=== PATIENT | female | born 1965 | race Caucasian/White ===

== ENCOUNTER → 2017-07-13 | Outpatient (CLI) | payer MEDICARE, OTHER ==
[~2017-07-13] MED LIST: ACEASPCAF PO; ALBU3IS INH; ALBU90OI6 INH; ALBU90OI61 INH; AMOX875 PO; ASCO1ER PO; ASCO500 PO; AZIT250 PO; Albuterol2.5 MG/0.5 INH; Amoxicillin500 MG PO; BACL10 PO; BACL20 PO; CALCA500CH PO; CALCAVITDA PO; CALCIT950 PO; CEFD300 PO; CEPH500 PO; CYAN1000 PO; Cipro250 MG PO; DIAZ2 PO; DIAZ5 PO; ESCI20 PO; ESOM20 PO; FENT100TP TOP; FLUO10 PO; FLUSAL2505 IH; HYDMOR8 PO; IBUP600 PO; LAVAP17G PO; LEVFLO500 PO; LEVO750 PO; LIDO2L TOP; LIDO5TP TOP; LIDO700A20 TOP; LITH300C PT; LITH300ER PO; METH1TAB8 PO; MILLIPRED DP5 M1 PO; MINO100 PO; MULVITB&C PO; MULVITMINE PO; NICO21TP TOP; NITR100CA PO; NORT10 PO; OFLO.3OTSO BOTHEARS; OXYC20L PO; OXYC30ER PO; OXYC40ER PO; OXYC5 PO; OXYC80ER PO; POLY17UD PO; PRED10 PO; PRED20 PO; PREG100 PO; PREG150 PO; PREG75 PO; Pyridium200 MG PO; Roxicodone15 MG PO; Seroquel50 MG; TETR250 PO; TIOT18 IH; TIOT18 INH; TRAZ50 PO; Verotin-Gr Cap1 EACH PO; Vistaril50 MG PO; Vitamin B Comple1 EA PO; ZOLP5 PO; Zithromax250 MG PO
[2017-07-13 16:10] LABS: Appearance, Urine Hazy (Clear); Blood, Urine 2+ (Neg); Color, Urine Yellow (P-Yellow); Glucose Qualitative, Urine Neg (Neg); Ketones, Urine Neg (Neg); Leukocyte Esterase, Urine 3+ (Neg); Nitrite, Urine Pos (Neg); Protein, Urine 1+ (Neg); Urobilinogen, Urine 2+ (Normal); pH, Urine 6.5 (5.0-8.0)
[2017-07-13 16:17] LABS: Bilirubin, Urine 1+ (Neg)
[2017-07-13 16:18] LABS: Bacteria Many /hpf; Red Blood Cells, Urine 0-2 /hpf (0-2); Squamous Epithelial Cells Few /hpf (Few)
== END ==
LOC: LAB 15:30 → LAB SHORT 15:30 → LAB FUT 07-13 15:15
PROVIDERS: Family Medicine
DX: N39.0 Urinary tract infection, site not specified (principal)
CPT/HCPCS: 81001; 87077; 87086; 87186

== ENCOUNTER 2018-05-10 01:09 | Day surgery (SDC) | payer MEDICARE, OTHER ==
[~2018-05-10 01:09] MED LIST changes: -CEPH500 PO; -Vistaril50 MG PO
== END 2018-05-10 14:21 | disposition home or self-care (01) ==
LOC: ATC 01:09
DX: C32.1 Malignant neoplasm of supraglottis (principal)
CPT/HCPCS: 99211

== ENCOUNTER 2018-06-25 00:04 | Day surgery (SDC) | payer MEDICARE, OTHER ==
[~2018-06-25 00:04] MED LIST changes: +CEPH500 PO; +Vistaril50 MG PO
== END 2018-06-25 15:40 | disposition home or self-care (01) ==
LOC: ATC 00:04
DX: C32.1 Malignant neoplasm of supraglottis (principal); Q05.7 Lumbar spina bifida without hydrocephalus; Z88.8 Allergy status to other drugs, medicaments and biological substances; R13.10 Dysphagia, unspecified; F17.200 Nicotine dependence, unspecified, uncomplicated; F41.8 Other specified anxiety disorders; M79.7 Fibromyalgia; K21.9 Gastro-esophageal reflux disease without esophagitis
CPT/HCPCS: 99211

== ENCOUNTER 2018-07-05 15:48 | Day surgery (SDC) | payer MEDICARE, OTHER | END 2018-07-05 23:10 | disposition home or self-care (01) | LOC: ATC 15:48 | DX: Z45.1 Encounter for adjustment and management of infusion pump (principal) | CPT/HCPCS: 99211 ==

== ENCOUNTER 2019-05-20 17:36 | Emergency (ER) | payer MEDICARE, OTHER ==
[~2019-05-20] VITALS: Ht 152.4 cm; Wt 45.4 kg
[2019-05-20 19:14] LABS: BASOPHILS ABSOLUTE AUTO 0.03 K/mm3 (0.00-0.23); BASOPHILS PERCENT AUTO 0 % (0-2); EOSINOPHILS PERCENT AUTO 1 % (0-6); Hematocrit 40.3 % (33.0-51.0); IMMATURE GRAN ABSOLUTE AUTO 0.03 K/mm3 (0.00-0.10); IMMATURE GRAN PERCENT AUTO 0 % (0-1); LYMPHOCYTES ABSOLUTE AUTO 1.08 K/mm3 (0.84-5.20); LYMPHOCYTES PERCENT AUTO 12 % (21-46); MONOCYTES ABSOLUTE AUTO 0.25 K/mm3 (0.16-1.47); MONOCYTES PERCENT AUTO 3 % (4-13); Mean Corpuscular HGB 28.8 pg (26.0-34.0); Mean Corpuscular HGB Conc 32.3 g/dL (31.5-36.5); Mean Corpuscular Volume 89 fL (80-100); Mean Platelet Volume 10.7 fL (9.1-12.4); NEUTROPHILS ABSOLUTE AUTO 7.74 K/mm3 (1.96-9.15); NEUTROPHILS PERCENT AUTO 84 % (41-73); Platelet Count 222 K/mm3 (150-400); RDW Coefficient Variation 14.6 % (11.7-14.2); RDW Standard Deviation 47.9 fL (35.1-46.3); Red Blood Cell Count 4.52 M/mm3 (3.80-5.20); White Blood Cell Count 9.23 K/mm3 (4.00-11.30)
[2019-05-20 19:31] LABS: Alanine Aminotransfer (ALT/SGP 23 U/L (12-78); Albumin, Blood 2.9 g/dL (3.4-5.0); Albumin/Globulin Ratio 0.8 (0.8-1.8); Alk Phos 101 U/L (50-136); Anion Gap 3 mmol/L (6-16); Aspartate Aminotrans (AST/SGOT 15 U/L (12-37); Bilirubin, Total 0.3 mg/dL (0.1-1.0); Blood Urea Nitrogen 14 mg/dL (8-24); Bun/Creatinine Ratio 29.4 (12.0-20.0); CO2, Blood 30 mmol/L (21-32); Calcium, Blood 8.2 mg/dL (8.5-10.1); Chloride, Blood 104 mmol/L (98-108); Creatinine, Blood 0.48 mg/dL (0.40-1.00); Globulin, Blood 3.6 g/dL (2.2-4.0); Glomerular Filtration Rate >60 (60-); Glucose, Blood 160 mg/dL (70-99); Potassium, Blood 3.3 mmol/L (3.5-5.5); Sodium, Blood 137 mmol/L (136-145); Total Protein, Blood 6.5 g/dL (6.4-8.2)
[2019-05-20] MEDS ORDERED: Prednisone10 MG PO (19:35)
[2019-05-20] MEDS ORDERED: DOXY100 (19:36)
[2019-05-20] MEDS ORDERED: PRED10 PO (19:40)
[2019-05-20] MEDS ORDERED: AZIT250 PO (19:40)
== END 2019-05-20 19:51 | disposition home or self-care (01) ==
LOC: ER 17:36
PROVIDERS: Emergency Medicine
DX: J44.1 Chronic obstructive pulmonary disease with (acute) exacerbation (principal); F17.210 Nicotine dependence, cigarettes, uncomplicated; Z87.440 Personal history of urinary (tract) infections; Z88.2 Allergy status to sulfonamides; Z88.8 Allergy status to other drugs, medicaments and biological substances; Z88.1 Allergy status to other antibiotic agents; Z88.5 Allergy status to narcotic agent; Z79.899 Other long term (current) drug therapy; Z79.891 Long term (current) use of opiate analgesic; Z79.52 Long term (current) use of systemic steroids
CPT/HCPCS: 71045; 80053; 85025; 94644; 99284-25

== ENCOUNTER 2019-06-28 01:14 | Inpatient (IN) | payer MEDICARE, OTHER ==
[~2019-06-28] VITALS: Ht 152.4 cm; Wt 40.6 kg
[~2019-06-28 01:14] MED LIST changes: +DOXY100; +Prednisone10 MG PO; +Seroquel Xr50 MG PO; -Seroquel50 MG
[2019-06-28 01:25] LABS: PCO2 Arterial 58.6 mmHg (35-45); PO2 Arterial 62.2 mmHg (80-100)
[2019-06-28 01:38] LABS: BASOPHILS ABSOLUTE AUTO 0.04 K/mm3 (0.00-0.23); BASOPHILS PERCENT AUTO 0 % (0-2); EOSINOPHILS PERCENT AUTO 1 % (0-6); Hemoglobin 12.1 g/dL (11.5-16.0); IMMATURE GRAN ABSOLUTE AUTO 0.07 K/mm3 (0.00-0.10); IMMATURE GRAN PERCENT AUTO 1 % (0-1); LYMPHOCYTES ABSOLUTE AUTO 1.77 K/mm3 (0.84-5.20); LYMPHOCYTES PERCENT AUTO 12 % (21-46); MONOCYTES ABSOLUTE AUTO 0.82 K/mm3 (0.16-1.47); MONOCYTES PERCENT AUTO 5 % (4-13); Mean Corpuscular HGB 28.5 pg (26.0-34.0); Mean Corpuscular HGB Conc 31.8 g/dL (31.5-36.5); Mean Corpuscular Volume 90 fL (80-100); Mean Platelet Volume 10.8 fL (9.1-12.4); NEUTROPHILS ABSOLUTE AUTO 12.35 K/mm3 (1.96-9.15); NEUTROPHILS PERCENT AUTO 81 % (41-73); Platelet Count 209 K/mm3 (150-400); RDW Coefficient Variation 14.4 % (11.7-14.2); RDW Standard Deviation 47.4 fL (35.1-46.3); Red Blood Cell Count 4.24 M/mm3 (3.80-5.20); White Blood Cell Count 15.25 K/mm3 (4.00-11.30)
[2019-06-28 01:52] LABS: Influenza A Negative (NEGATIVE); Influenza B Negative (NEGATIVE)
[2019-06-28 01:56] LABS: Alanine Aminotransfer (ALT/SGP 20 U/L (12-78); Albumin/Globulin Ratio 0.8 (0.8-1.8); Alk Phos 92 U/L (50-136); Anion Gap 5 mmol/L (6-16); Aspartate Aminotrans (AST/SGOT 25 U/L (12-37); Bilirubin, Total 0.4 mg/dL (0.1-1.0); Blood Urea Nitrogen 17 mg/dL (8-24); Bun/Creatinine Ratio 19.3 (12.0-20.0); CO2, Blood 28 mmol/L (21-32); Calcium, Blood 8.2 mg/dL (8.5-10.1); Chloride, Blood 102 mmol/L (98-108); Creatinine, Blood 0.88 mg/dL (0.40-1.00); Globulin, Blood 3.8 g/dL (2.2-4.0); Glomerular Filtration Rate >60 (60-); Glucose, Blood 121 mg/dL (70-99); Potassium, Blood 3.5 mmol/L (3.5-5.5); Sodium, Blood 135 mmol/L (136-145); Total Protein, Blood 6.8 g/dL (6.4-8.2); Troponin I <0.015 ng/mL (0.000-0.040)
[2019-06-28 04:59] LABS: PCO2 Arterial 70.8 mmHg (35-45); PO2 Arterial 73.7 mmHg (80-100); pH Blood Arterial 7.15 (7.35-7.45)
[2019-06-28 05:24] LABS: Source, Urine Clean Catch
[2019-06-28 05:29] LABS: Appearance, Urine Cloudy (Clear); Blood, Urine 1+ (Neg); Color, Urine Yellow (P-Yellow); Glucose Qualitative, Urine 2+ (Neg); Ketones, Urine 1+ (Neg); Leukocyte Esterase, Urine 2+ (Neg); Nitrite, Urine Pos (Neg); Protein, Urine 3+ (Neg); Specific Gravity, Urine 1.025 (1.003-1.022); Urobilinogen, Urine 1+ (Normal)
[2019-06-28 05:41] LABS: Bilirubin, Urine 1+ (Neg)
[2019-06-28 05:42] LABS: White Blood Cells, Urine 25-50 /hpf (0-5)
[2019-06-28 05:43] LABS: Bacteria Many /hpf; Granular Casts 25-50 /lpf (0); Red Blood Cells, Urine 0-2 /hpf (0-2); Squamous Epithelial Cells Mod /hpf (Few)
--- NOTE | 2019-06-28 06:28 | NUR ---
SHIFT SUMMARY: PT TO UNIT FROM ED. INTUBATED AND SEDATED. PT CHIEF COMPLAINT IS SOB X 1 WK. PT WAS UNRESPONSIVENESS WHEN EMS ARRIVED. PT REPORTEDLY DID NOT TOLERATE BIPAP SO PT WAS INTUBATED. ETT 7.0, 22 AT TEETH. CURRENTLY ON PRESSURE SUPPORT 350/PEEP 5/ FIO2 50%. PT TOLERATING WELL. ST, MAP IN THE 60S. LUNG SOUNDS COARSE AND WHEEZY THROUGHOUT. OG IN PLACE TO LIS. TERESA IN PLACE DRAINING CLEAR YELLOW URINE. 18G IV TO R/L AC, PROPOFOL AT 50, NS AT 100ML/HR. DEBBIE MOARLES PLACED CALL TO PTS SO. NO VM SET UP
--- NOTE | 2019-06-28 06:33 | NUR ---
CALL TO FAMILY PER WOODYARD OPERATOR, S.O. IS NOT AWARE OF PT BEING INTUBATED. ATTEMPTED CALL TO S.O.- NO ANSWER AT THIS TIME. NO VOICE MAIL AVAILABLE.
[2019-06-28 06:38] LABS: Adenovirus Not Detected (NOT DETECT); Bordetella pertussis Not Detected (NOT DETECT); Chlamydophila pneumoniae Not Detected (NOT DETECT); Coronavirus 229E Not Detected (NOT DETECT); Coronavirus HKU1 Not Detected (NOT DETECT); Coronavirus NL63 Not Detected (NOT DETECT); Coronavirus OC43 Not Detected (NOT DETECT); Human Metapneumovirus Not Detected (NOT DETECT); Human Rhinovirus/Enterovirus Not Detected (NOT DETECT); Influenza A Not Detected (NOT DETECT); Influenza A/2009-H1 Not Detected (NOT DETECT); Influenza A/H1 Not Detected (NOT DETECT); Influenza A/H3 Not Detected (NOT DETECT); Influenza B Not Detected (NOT DETECT); Mycoplasma pneumoniae Not Detected (NOT DETECT); Parainfluenza Virus 1 Not Detected (NOT DETECT); Parainfluenza Virus 2 Not Detected (NOT DETECT); Parainfluenza Virus 3 Not Detected (NOT DETECT); Parainfluenza Virus 4 Not Detected (NOT DETECT); Respiratory Syncytial Virus Not Detected (NOT DETECT)
[2019-06-28 07:31] LABS: PCO2 Arterial 50.4 mmHg (35-45); PO2 Arterial 83.2 mmHg (80-100)
--- NOTE | 2019-06-28 07:39 | NUR ---
RT CHANGED VENT SETTINGS TO A/C AND 40% FIO2.
[2019-06-28 08:44] LABS: Hematocrit 35.1 % (33.0-51.0); Hemoglobin 11.1 g/dL (11.5-16.0); Mean Corpuscular HGB 28.5 pg (26.0-34.0); Mean Corpuscular HGB Conc 31.6 g/dL (31.5-36.5); Mean Corpuscular Volume 90 fL (80-100); Mean Platelet Volume 10.8 fL (9.1-12.4); Platelet Count 170 K/mm3 (150-400); RDW Coefficient Variation 14.5 % (11.7-14.2); RDW Standard Deviation 47.7 fL (35.1-46.3); White Blood Cell Count 17.39 K/mm3 (4.00-11.30)
[2019-06-28 09:11] LABS: Alanine Aminotransfer (ALT/SGP 30 U/L (12-78); Albumin, Blood 2.5 g/dL (3.4-5.0); Albumin/Globulin Ratio 0.7 (0.8-1.8); Alk Phos 91 U/L (50-136); Anion Gap 7 mmol/L (6-16); Aspartate Aminotrans (AST/SGOT 42 U/L (12-37); Bilirubin, Total 0.3 mg/dL (0.1-1.0); Blood Urea Nitrogen 18 mg/dL (8-24); Bun/Creatinine Ratio 27.1 (12.0-20.0); CO2, Blood 24 mmol/L (21-32); Calcium, Blood 7.3 mg/dL (8.5-10.1); Chloride, Blood 106 mmol/L (98-108); Creatinine, Blood 0.67 mg/dL (0.40-1.00); Globulin, Blood 3.5 g/dL (2.2-4.0); Glomerular Filtration Rate >60 (60-); Glucose, Blood 273 mg/dL (70-99); Sodium, Blood 137 mmol/L (136-145)
--- NOTE | 2019-06-28 09:29 | NUR ---
RT DECREASED FIO2 TO 35% BY RT.
[2019-06-28] MEDS ORDERED: OXYC30ER PO (09:47)
--- NOTE | 2019-06-28 10:00 | NUR ---
PT SAT UPRIGHT IN BED, GAGGING AND FIGHTING ETT. SUCTIONED ETT WITH SMALL AMT THICK MEZA SECRETIONS, TOLERATED WELL. PROPOFOL GTT INCREASED TO 50 MCG/KG/MIN.
--- NOTE | 2019-06-28 11:00 | NUR ---
DR. SPENCER AT BEDSIDE FOR ASSESSMENT. CHANGED VENT SETTINGS TO SPONT WITH PS 8 AND 35% FIO2, TV 350.
--- NOTE | 2019-06-28 14:56 | NUR ---
DR JIANG AT BEDSIDE TO SPEAK WITH FAMILY AND PT. PT LISTENING W EYES CLOSED, CONT TO NOD HEAD APPROPRIATELY TO QUESTIONS. DENIES PAIN. BP VERY LABILE. EPI TURNED OFF AT 1450. PICTURES OF RIGHT HAND EMBOLI TAKEN. LEFT AND AND OTHER EXTREMITIES REMAIN CLEAR. POSSIBLE VICTORINO TODAY. REPEAT EKG ORDERED.
--- NOTE | 2019-06-28 20:18 | NUR ---
CARE OF PT ASSUMED AT 1120. AT BEDSIDE; LEFT SHORTLY AFTER FOR HOME. PT SEDATED ON PROPOFOL AT 50MCG. PRECEDEX GTT STARTED AT 1242 AND SLOWLY TITATRED TO 0.7MCG OVER THE SHIFT. PT ABRUPTLY WOULD AWAKEN FROM SEDATION AND SIT IN TRIPOD STANCE WHILE GAGGING ON ETT. FENT IV Q2 FOR PAIN ORDERED BY DR SPENCER. FENT GIVEN TWICE FOR PAIN ON MY SHIFT. PT C/O PAIN EVERYWHERE; AWAKE AND NODDING APPROPRIATE TO QUESTIONS. PT RESPONDED BETTER TO 100MCG RATHER THAN THE 50MCG. PT ABLE TO ASSIST WITH TURNS. IV AND PT K+ REPLACEMENT GIVEN; DOSE VARIFIED WITH DR SPENCER PRIOR TO ADMINISTRATION. REPORT GIVEN TO ONCOMING RN.
--- NOTE | 2019-06-28 21:22 | NUR ---
SPOKE TO DR. SPENCER RE ADDING ATIVAN FOR ANXIETY. NO ORDERS FOR ATIVAN GIVEN HOWEVER CAN GO UP TO 1.4 ON PRECEDEX.
[2019-06-29 04:27] LABS: Bicarbonate Venous 22.8 mmol/L (24.0-30.0); PCO2 Venous 40.4 mmHg (38-42); PO2 Venous 88.8 mmHg (38-42); pH Blood Venous 7.37 (7.34-7.37)
[2019-06-29 04:31] LABS: BASOPHILS ABSOLUTE AUTO 0.01 K/mm3 (0.00-0.23); BASOPHILS PERCENT AUTO 0 % (0-2); EOSINOPHILS PERCENT AUTO 0 % (0-6); Hematocrit 35.8 % (33.0-51.0); Hemoglobin 11.5 g/dL (11.5-16.0); IMMATURE GRAN ABSOLUTE AUTO 0.02 K/mm3 (0.00-0.10); IMMATURE GRAN PERCENT AUTO 0 % (0-1); LYMPHOCYTES ABSOLUTE AUTO 0.31 K/mm3 (0.84-5.20); LYMPHOCYTES PERCENT AUTO 4 % (21-46); MONOCYTES ABSOLUTE AUTO 0.32 K/mm3 (0.16-1.47); MONOCYTES PERCENT AUTO 4 % (4-13); Mean Corpuscular HGB 28.4 pg (26.0-34.0); Mean Corpuscular HGB Conc 32.1 g/dL (31.5-36.5); Mean Corpuscular Volume 88 fL (80-100); Mean Platelet Volume 10.7 fL (9.1-12.4); NEUTROPHILS ABSOLUTE AUTO 7.56 K/mm3 (1.96-9.15); NEUTROPHILS PERCENT AUTO 92 % (41-73); Platelet Count 145 K/mm3 (150-400); RDW Coefficient Variation 14.4 % (11.7-14.2); Red Blood Cell Count 4.05 M/mm3 (3.80-5.20); White Blood Cell Count 8.22 K/mm3 (4.00-11.30)
[2019-06-29 04:49] LABS: Anion Gap 6 mmol/L (6-16); Blood Urea Nitrogen 22 mg/dL (8-24); Bun/Creatinine Ratio 47.2 (12.0-20.0); CO2, Blood 24 mmol/L (21-32); Calcium, Blood 8.4 mg/dL (8.5-10.1); Chloride, Blood 111 mmol/L (98-108); Creatinine, Blood 0.47 mg/dL (0.40-1.00); Glomerular Filtration Rate >60 (60-); Glucose, Blood 131 mg/dL (70-99); Phosphorus, Blood 3.5 mg/dL (2.5-4.9); Potassium, Blood 4.8 mmol/L (3.5-5.5); Sodium, Blood 141 mmol/L (136-145)
--- NOTE | 2019-06-29 05:51 | NUR ---
NO ACUTE CHANGES THIS SHIFT. PT ALERT AND ORIENTED AND IS ABL ETO COMMUNICATE NEEDS VIA PEN AND PAPER. PT IN NSR, STABLE BP, HR IN THE 80S. PT ON PRESSURE SUPPORT 350/[EE[ 5/ FI02 30%. SPO2 >90%. PT HAS 20G RAC INFUSING WITH NS TKO AND 18G LAC INF WITH PRECEDEX AT 1 AND PROPOFOL AT 50. CXRAY DONE THIS AM. POSSIBLE EXTUBATION TODAY
--- NOTE | 2019-06-29 09:23 | NUR ---
DR SPENCER ROUNDS DR SPENCER ROUNDED, UPDATED ON PT STATUS. PLAN TO EXTUBATE PT THIS MORNING. PROPOFOL GTT STOPPED AT THIS TIME. CHILO RT NOTIFIED. PER DR SPENCER, PRECEDEX GTT TO CONTINUE POST EXTUBATION D/T PT'S HX ANXIETY, OKAY FOR PT TO EAT IF APPROPRIATE AFTER A COUPLE HOURS. NO FURTHER CHANGES TO PLAN OF CARE AT THIS TIME. WILL CONT TO MONITOR PT.
--- NOTE | 2019-06-29 10:34 | NUR ---
EXTUBATION PT SITTING UP IN BED AND PULLING ON RESTRAINTS, VERY AWAKE AND READY TO HAVE ETT OUT. CHILO RT NOTIFIED THAT PT IS READY TO BE EXTUBATED. RT CHILO AND THIS RN AT BEDSIDE. PT INFORMED OF PLAN AND SET UP FOR EXTUBATION. ORAL AND ETT SUCTIONING DONE. PT SAFELY EXTUBATED AT 1008, O2 AT 3LPM VIA NC IN PLACE WITH PT SPO2 97%. PT EDUCATED THAT IT IS NORMAL TO FEEL DISCOMFORT AND SORENESS IN THROAT POST EXTUBATION AND TO MINIMIZE TALKING IN ORDER TO HEAL, PT NODDED UNDERSTANDING. SBW RESTRAINTS D/C. DR SPENCER UPDATED. WILL CONT TO MONITOR PT. CALL LIGHT IN REACH.
--- NOTE | 2019-06-29 10:54 | NUR ---
DR SPENCER UPDATE PER DR SPENCER, ANTICIPATED THAT PT WILL REQUEST HOME DOES OF OXYCODONE - DR HEREDIA TO MANAGE THIS.
--- NOTE | 2019-06-29 11:20 | NUR ---
PT EXTUBATED AT 1008 WITHOUT ISSUE, PLACED ON 2L POST EXTUBATION. PT ETT AND ORAL SX PRIOR TO EXTUBATION.
--- NOTE | 2019-06-29 11:31 | NUR ---
NICOTINE PATCH REQUEST PT REQUESTING NICOTINE PATCH. PER PT SHE SMOKES 6 CIGS/DAY. ORDER RECEIVED FROM DR SPENCER FOR 7MG NICOTINE PATCH. PER DR JOHANNA GAFFNEY TO ORDER OXYCODONE 5MG Q6H PRN FOR MODERATE PAIN. NO FURTHER CHANGES TO PLAN OF CARE AT THIS TIME. WILL CONT TO MONITOR PT.
--- NOTE | 2019-06-29 13:00 | NUR ---
PAIN PT AT BEDSIDE, UPDATED ON PT STATUS. PT ASKED WHEN SHE CAN RECEIVE PAIN MEDICINE AND WHAT WE ARE DOING TO MANAGE HER PAIN. I EXPLAINED THAT SHE HAS NOT C/O PAIN FOR ME THIS SHIFT BUT I ACKNOWLEDGE HER CHRONIC PAIN AND PLAN IS TO DISCUSS RESUMING HOME DOSE OF OXYCODONE WITH DR HEREDIA DURING ROUNDS, THAT UNTIL THEN WE DO HAVE FENTANYL IF SHE SHOULD NEED IT. PT IMMEDIATELY COMMENTS THAT SHE IS IN PAIN AND HAS BEEN BUT WAS TOLD BY "THE NURSE IN THE RED TOP" THAT SHE "CAN'T USE HER CALL LIGHT". EXPLAINED TO PT THAT THIS WAS NOT WHAT WAS SAID, WHAT WAS ENCOURAGED IS APPROPRIATE USE OF CALL LIGHT SHE HAD BEEN CALLING EVERY 15 MIN FOR SMALL ITEMS SUCH MOUTH SWABS, WARM BLANKETS, ETC. PT STATED "NO, I HAVE SAID I'M HAVING PAIN". REITERATED TO PT THAT AT NO TIME DID SHE VERBALIZE PAIN TO THIS RN OR OTHERS. PLAN TO MEDICATE WITH FENTANYL FOR PAIN PER ORDERS. SEE EMAR. WILL CONT TO MONITOR PT.
--- NOTE | 2019-06-29 14:18 | NUR ---
BELONGINGS PT HAD TAKEN PT'S PURSE HOME, NOW THAT PT IS EXTUBATED AND AWAKE SHE HAS BEEN ASKING FOR IT. BROUGHT PURSE TO BEDSIDE.
--- NOTE | 2019-06-29 17:27 | NUR ---
EPISODES PT CRYING OUT FOR NURSE, WHEN THIS RN PRESENTS TO ROOM PT VERY TEARFUL AND ANXIOUSLY ASKING "IS SOMEONE DYING OUT THERE", "I DON'T WANT ANYONE TO ". ATTEMPTS TO CALM AND REDIRECT PT SUCCESSFUL. PT LISTENING TO MUSIC ON PHONE AND NOTED TO SELF SOOTHE BY ROCKING AND SAYING "JUST RELAX". WILL CONT TO MONITOR PT.
--- NOTE | 2019-06-29 18:40 | NUR ---
PAIN MEDS SPOKE WITH DR SPENCER REGARDING PT REQUEST TO BE RESTARTED ON ALL HER HOME PAIN MEDS. PER DR SPENCER OKAY TO RESUME PT'S LYRICA AT HOME DOSE AND D/C FENTANYL. PER DR SPENCER PLAN TO DISCUSS RESUMING BACLOFEN AT HOME DOSE TOMORROW WELL OXYCODONE AT HOME DOSE, IN ADDITION TO TITRATING PT OFF PRECEDEX GTT. NO FURTHER CHANGES TO PLAN OF CARE AT THIS TIME.
--- NOTE | 2019-06-29 20:00 | NUR ---
ASSUMPTION OF CARE: PT EXTUBATED AND A & O. LUNG SOUNDS CLEAR. SPO2 >90% ON 2L NC. IN NSR, SBP STABLE 140-160, HR IN THE 90S. ABD DISTENDED, BT X 4. TERESA IN PLACE DRAINING TO GRAVITY. 20 G IN RAC INF WITH PRECEDEX AT 0.7. PT ABLE TO REPOSITION SELF. CALL LIGHT WITHIN REACH, BED IN LOWEST POSITION
--- NOTE | 2019-06-30 05:48 | NUR ---
SHIFT SUMMARY: PT EXTUBATED YESTERDAY. PT IS ANXIOUS AND FEARFUL. POOR ABILITY TO COPE DESPITE FREQUENT REASSURANCE. PT COMPLAINS OF FREQUENT PAIN ESPECIALLY IN LEGS. WARM BLANKETS, REASSURANCE, DIVERSION TECHNIQUES ATTEMPTED. PT ALERT. AT TIMES ORIENTED TO WHY SHE IS IN ICU OTHER TIMES IS FORGETFUL. LUNG SOUNDS ARE CLEAR. ON M-SERIES BIPAP WITH BLEED IN OF 2L. SP02 >90%. IN SR, SBP STABLE IN 130S, HR IN THE 80S. BT X 4. TERESA IN PLACE DRAINING CLEAR YELLOW URINE. 20G IN L/RAC. PROP RUNING AT 0.7MCG. CALL LIGHT WITHIN REACH. BED INLOWEST POSITION. WARM BLANKETS PROVIDED
[2019-06-30 09:39] LABS: Base Excess Venous 5.3 mmol/L; Bicarbonate Venous 28.3 mmol/L (24.0-30.0); PCO2 Venous 41.5 mmHg (38-42); PO2 Venous 47.2 mmHg (38-42); pH Blood Venous 7.46 (7.34-7.37)
--- NOTE | 2019-06-30 10:02 | NUR ---
PT IS CURRENTLY RELAXING BETTER AFTER PO MEDS RESTARTED THIS AM. PT HAS BEEN VERY ANXIOUS AND REPEATING REQUESTS FREQUENTLY AND AIMLESSLY. PT HAS SLOWLY RESPONDED TO VERBAL REASSURANCE AND IMPROVED WITH PO MEDS ABOVE. PT IS ON 2L NC AND STATS 98 RANGE. TERESA IS INTACT. IV PRECEDEX GTT IS INTACT AND WILL WEAN DOWN AND D/C PER ORDER.
--- NOTE | 2019-06-30 14:35 | NUR ---
PT IS RESTING AND CURRENTLY DENIES PAIN AND "PAIN FREE". PT IS INC CALM AND RELAXED THIS PM AND AFTER GETTING PO AM PAIN MEDS AND ROUTINE MEDS. JUST CALLED DR HEREDIA TO UPDATE RE PT PAIN STATUS. NEW ORDER NOTED.
--- NOTE | 2019-06-30 17:40 | NUR ---
PT WAS GIVEN THE PAIN MEDS THAT SHE TAKES ROUTINELY AND IT APPEARS THAT SHE CAN LAST THE 8 HOUR PERIOD. IN IS WITH VPAP MACHINE AND RT WILL EVALUATE FOR BACK UP RR CAPABILITY. PT BECOMES SOMEWHAT PARANOID WHEN THE PAIN INCREASES AND IS DIFFICULT TO CONSOLE. PT IS MOVING SELF IN BED AND HAS BEEN FEEDING AND EATING W/O DISTRESS. VSS. PT HAS BEEN ON 3L NC AND DOING WELL NO JUST THE NC. WILL DETERMINE WHERE PT CAN GO BASED ON RT EVALUATION.
--- NOTE | 2019-06-30 20:00 | NUR ---
ASSUMPTION OF CARE: PT EXTUBATED AND ON 2L NC. TOLERATING WELL. LUNG SOUNDS CLEAR THROUGHOUT. SPO2 >90%. PT IN NSR. SBP STABLE IN THE 130-140, HR IN THE 80S. TERESA IN PLACE DRAINING CLEAR YELLOW URINE. BT X4. BILAT 20G AC IVS SL AND PATENT. PT APPEARS CALM AND COOPERATIVE. USING CALL LIGHT APPROPRIATELY. BED IN LOWEST POSITION, CALL LIGHT WITHIN REACH. WILL CONTINUE TO MONITOR
--- NOTE | 2019-07-01 00:29 | NUR ---
06/30 ~ 22:00 WENT INTO ROOM TO ANSWER CALL LIGHT. PATIENT ASKED WHERE CALL LIGHT WAS, DIRECTED HER TO THE HANDSET SITTING ON HER LAP. PATIENT REQUESTED TO COME OFF OF BIPAP, I REQUESTED HER TO HOLD ON A MINUTE, I WAS NOT FAMILIIAR WITH HER CASE. SHE STARTED TO TAKE BIPAP OFF FROM THE VELCRO STRAP, ASKED PATIENT TO LET ME HELP IT WOULD BE EASIER FOR ME TO UNDO THE PLASTIC CLIPS, TOLD HER WE WOULD HAVE TO ADJUST THE STRAPS, AND WHEN MY HANDS WERE A FOOT FROM HER MASK PATIENT STARTED SWATTING AND SCRATCHING AT ME, SAID "YOU'RE HURTING ME!" I STOPPED, ASKED HOW I WAS HURTING HER IF I WAS NOT TOUCHING HER, PATIENT DID NOT ANSWER, BUT ASKED FOR SOO CRACKERS. I GAVE HER OXYGEN TUBING, WHICH SHE PLACED APROPRIATELY. AFTER CONFIRMING WITH DEBBIE ZALDIVAR PATIENT WAS ON A REGULAR DIET, GOT HER 3 PACKS OF CRACKERS.
--- NOTE | 2019-07-01 06:00 | NUR ---
SHIFT SUMMARY: PT ALERT AND ORIENTED. FEARFUL AND ANXIOUS AT TIMES HOWEVER IS EASILY REDIRECTABLE AND ABLE TO BE REASSURED THIS SHIFT. PAIN UNDER BETTER CONTROL AND PT STATES PAIN LEVEL HAS BEEN RELATIVELY LOW. LUNG SOUNDS CLEAR THROUGHOUT. SP02 >90% ON 2L NC. BIPAP PRN WHEN SLEEPING. BIPAP SETTINGS 15/9/35% PT SR, SBP 130-140, HR IN 80S. TERESA IN PLACE DRAINING DARK YELLOW URINE. 20G LAC-SL. BED IN LOWEST POSITION. CALL LIGHT WITHIN REACH
--- NOTE | 2019-07-01 09:00 | NUR ---
CARE ASSUMED REPORT RECEIVED, CARE ASSUMED AT 0700 FROM DEBBIE ZALDIVAR. ON NURSE ROUNDING, PT REPORTING PAIN IN HER LEFT RIB. PT STATES, "I AM SO SCARED. SOMETHING IS WRONG. SOMEONE IS DYING." VITALS STABLE. HR SINUS TACH 100'S. 02 SAT 90'S ON 2 LPM NASAL CANNULA. ABLE TO REDIRECT PATIENT BY TALKING ABOUT HER CHILDREN. PT ENCOURAGED TO REST AND AGREEABLE. PT LEFT WITH CALL LIGHT IN REACH. AGREES TO CALL FOR NEEDS.
--- NOTE | 2019-07-01 10:00 | NUR ---
UPDATE SINCE PREVIOUS NOTE, PT HAS TAKEN A SMALL NAP AND STATES SHE FEELS BETTER. SHE EXPLAINS THAT DR. HEREDIA AGREED TO SEND HER HOME. PT STATES, "I AM JUST SO HAPPY" AND APPEARS CALM. RR EVEN, UNLABORED. VITALS STABLE. INFORMED ON DISCHARGE PROCESS AND AGREEABLE. WAITING FOR DISCHARGE ORDER. VERIFIED DISCHARGE PLAN WITH DR. SZYMANSKI, FLOOR MECHANIC. PLAN FOR HOME 02 EVALUATION PRIOR TO DISCHARGE. PT ALSO HAS RASH ON BACKSIDE. PT STATES SHE THINKS IT'S FROM BEING IN BED TOO LONG, EXPLAINING THAT SHE HAS BEEN SWEATING. NEW ORDER FOR ZINC OXIDE CREAM RECEIVED. PT UPDATED AND AGREEABLE.
--- NOTE | 2019-07-01 12:40 | NUR ---
DISCHARGE MEDS IN D/C INSTRUCTIONS DR. HEREDIA ADDRESSES TO TAKE ABX PRESCRIBED. NO RX FOR ABX NOTED. CLARIFIED WITH DR. HEREDIA. PT TO GO HOME ON NO ANTIBIOTICS, PER DR. HEREDIA.
[2019-07-01] MEDS ORDERED: PRED20 PO (12:42)
--- NOTE | 2019-07-01 13:53 | NUR ---
DISCHARGE PER PT'S HOME 02 EVALUATION, PT NEEDS 2 LPM NASAL CANNULA WHILE AWAKE. PORTABLE 02 TANK BROUGHT IN BY SHAMEKA. PT'S CAREGIVER AND SON AT BEDSIDE FOR DISCHARGE INSTRUCTIONS. PT VOICES THAT SHE IS NO LONGER GOING TO BE SMOKING, AND THAT SHE HAS NICOTINE PATCHES AT HOME TO HELP HER. PT AGREEABLE TO PLAN FOR MEDICATIONS AT HOME. AGREES TO [facility] SUPERINTENDENT PREDNISONE RX AT [facility]. VITALS STABLE. STAND AND TRANSFER TO WHEELCHAIR. PT ESCORTED VIA WHEELCHAIR BY MARICRUZ MCADAMS WITH PT'S CAREGIVER AND SON AT SIDE. 2 LPM NASAL CANNULA VIA PORTABLE O2 MONITOR IN PLACE.
== END 2019-07-01 13:53 | disposition home or self-care (01) | DRG 208 ==
LOC: ER 01:14 → ICUW 04:30
PROVIDERS: Emergency Medicine; Internal Medicine Pulmonary Disease; ADMIT Internal Medicine
PROC: 5A09357 Assistance with Respiratory Ventilation, Less than 24 Consecutive Hours, Continuous Positive Airway Pressure (ICD-10-PCS; principal; 2019-06-28)
PROC: 5A1945Z Respiratory Ventilation, 24-96 Consecutive Hours (ICD-10-PCS; 2019-06-28)
PROC: 0BH17EZ Insertion of Endotracheal Airway into Trachea, Via Natural or Artificial Opening (ICD-10-PCS; 2019-06-28)
DX: J96.22 Acute and chronic respiratory failure with hypercapnia (principal); R65.11 Systemic inflammatory response syndrome (SIRS) of non-infectious origin with acute organ dysfunction; J44.1 Chronic obstructive pulmonary disease with (acute) exacerbation; Q05.9 Spina bifida, unspecified; F17.210 Nicotine dependence, cigarettes, uncomplicated; G89.4 Chronic pain syndrome; N31.9 Neuromuscular dysfunction of bladder, unspecified; K21.9 Gastro-esophageal reflux disease without esophagitis; M79.7 Fibromyalgia; E87.6 Hypokalemia; D69.6 Thrombocytopenia, unspecified; G47.31 Primary central sleep apnea; B95.3 Streptococcus pneumoniae as the cause of diseases classified elsewhere
CPT/HCPCS: 0099U; 31500; 31720; 36415; 36600; 51702; 71045; 80048; 80053; 81001; 82330; 82435; 82803; 83605; 83735; 83880; 84100; 84132; 84295; 84484; 85025; 85027; 87040; 87070; 87081; 87086; 87186; 87205; 87804; 93005; 93010; 94002; 94003; 94640; 94660; 94761; 96361-59; 96365-59; 96366-59; 96375-59; 99291-25; C9113; J0330; J0456; J0696; J1650; J2250; J2310; J2704; J2930; J3010; J3480; J7030; J7050; J7060; J7512

== ENCOUNTER 2019-07-05 21:56 | Inpatient (IN) | payer MEDICARE, OTHER ==
[~2019-07-05] VITALS: Ht 142.2 cm; Wt 45.0 kg
[2019-07-05 22:31] LABS: BASOPHILS ABSOLUTE AUTO 0.05 K/mm3 (0.00-0.23); BASOPHILS PERCENT AUTO 0 % (0-2); EOSINOPHILS PERCENT AUTO 0 % (0-6); Hematocrit 37.4 % (33.0-51.0); Hemoglobin 12.3 g/dL (11.5-16.0); IMMATURE GRAN ABSOLUTE AUTO 0.23 K/mm3 (0.00-0.10); IMMATURE GRAN PERCENT AUTO 1 % (0-1); LYMPHOCYTES ABSOLUTE AUTO 0.22 K/mm3 (0.84-5.20); LYMPHOCYTES PERCENT AUTO 1 % (21-46); MONOCYTES ABSOLUTE AUTO 0.78 K/mm3 (0.16-1.47); MONOCYTES PERCENT AUTO 3 % (4-13); Mean Corpuscular HGB 28.6 pg (26.0-34.0); Mean Corpuscular HGB Conc 32.9 g/dL (31.5-36.5); Mean Corpuscular Volume 87 fL (80-100); Mean Platelet Volume 10.9 fL (9.1-12.4); NEUTROPHILS ABSOLUTE AUTO 29.43 K/mm3 (1.96-9.15); NEUTROPHILS PERCENT AUTO 96 % (41-73); Platelet Count 270 K/mm3 (150-400); RDW Coefficient Variation 14.5 % (11.7-14.2); RDW Standard Deviation 46.4 fL (35.1-46.3); White Blood Cell Count 30.71 K/mm3 (4.00-11.30)
[2019-07-05 22:46] LABS: Alanine Aminotransfer (ALT/SGP 53 U/L (12-78); Albumin, Blood 2.9 g/dL (3.4-5.0); Albumin/Globulin Ratio 0.8 (0.8-1.8); Alk Phos 113 U/L (50-136); Anion Gap 9 mmol/L (6-16); Aspartate Aminotrans (AST/SGOT 87 U/L (12-37); Bilirubin, Total 0.3 mg/dL (0.1-1.0); Blood Urea Nitrogen 25 mg/dL (8-24); CO2, Blood 26 mmol/L (21-32); Calcium, Blood 8.5 mg/dL (8.5-10.1); Chloride, Blood 99 mmol/L (98-108); Creatinine, Blood 0.63 mg/dL (0.40-1.00); Ethanol (Alcohol), Blood, Med <3 mg/dL; Globulin, Blood 3.8 g/dL (2.2-4.0); Glomerular Filtration Rate >60 (60-); Glucose, Blood 212 mg/dL (70-99); Magnesium, Blood 1.5 mg/dL (1.6-2.4); Potassium, Blood 3.6 mmol/L (3.5-5.5); Sodium, Blood 134 mmol/L (136-145); Total Protein, Blood 6.7 g/dL (6.4-8.2); Troponin I 0.034 ng/mL (0.000-0.040)
[2019-07-05 22:48] LABS: Base Excess Venous 2.6 mmol/L; Bicarbonate Venous 26.1 mmol/L (24.0-30.0); PCO2 Venous 45.8 mmHg (38-42); PO2 Venous 67.5 mmHg (38-42); pH Blood Venous 7.39 (7.34-7.37)
[2019-07-06 02:08] LABS: Source, Urine Clean Catch
[2019-07-06 02:11] LABS: Appearance, Urine Clear (Clear); Bilirubin, Urine Neg (Neg); Blood, Urine 2+ (Neg); Color, Urine Amber (P-Yellow); Glucose Qualitative, Urine 3+ (Neg); Ketones, Urine 1+ (Neg); Leukocyte Esterase, Urine 1+ (Neg); Nitrite, Urine Neg (Neg); Protein, Urine 2+ (Neg); Specific Gravity, Urine 1.025 (1.003-1.022); Urobilinogen, Urine NORM (Normal)
[2019-07-06 02:17] LABS: Bacteria Mod /hpf; Mucus Light (0-Heavy); Red Blood Cells, Urine 0-2 /hpf (0-2); Squamous Epithelial Cells Few /hpf (Few); Yeast/Fungi Urine Many /hpf
[2019-07-06 02:21] LABS: U Amphetamine Screen Not Detected; U Barbituate Screen Not Detected; U Benzodiazapine Screen Not Detected; U Cocaine Screen Not Detected; U Methamphetamine Screen Not Detected
[2019-07-06 02:22] LABS: U Buprenorphine Screen Not Detected; U Cannabinoids Screen DETECTED; U Methadone Screen Not Detected; U Opiates Screen Not Detected; U Oxycodone Screen DETECTED; U Phencyclidine Screen Not Detected; U Propoxyphene Screen Not Detected
[2019-07-06 03:42] LABS: BASOPHILS ABSOLUTE AUTO 0.07 K/mm3 (0.00-0.23); BASOPHILS PERCENT AUTO 0 % (0-2); EOSINOPHILS PERCENT AUTO 0 % (0-6); Hematocrit 35.9 % (33.0-51.0); Hemoglobin 11.3 g/dL (11.5-16.0); IMMATURE GRAN ABSOLUTE AUTO 0.35 K/mm3 (0.00-0.10); IMMATURE GRAN PERCENT AUTO 1 % (0-1); LYMPHOCYTES PERCENT AUTO 1 % (21-46); MONOCYTES ABSOLUTE AUTO 0.28 K/mm3 (0.16-1.47); MONOCYTES PERCENT AUTO 1 % (4-13); Mean Corpuscular HGB 27.8 pg (26.0-34.0); Mean Corpuscular HGB Conc 31.5 g/dL (31.5-36.5); Mean Corpuscular Volume 88 fL (80-100); Mean Platelet Volume 11.1 fL (9.1-12.4); NEUTROPHILS ABSOLUTE AUTO 35.11 K/mm3 (1.96-9.15); NEUTROPHILS PERCENT AUTO 97 % (41-73); Platelet Count 249 K/mm3 (150-400); RDW Coefficient Variation 14.6 % (11.7-14.2); RDW Standard Deviation 47.4 fL (35.1-46.3); Red Blood Cell Count 4.06 M/mm3 (3.80-5.20); White Blood Cell Count 36.01 K/mm3 (4.00-11.30)
[2019-07-06 04:00] LABS: Albumin, Blood 2.8 g/dL (3.4-5.0); Anion Gap 5 mmol/L (6-16); Blood Urea Nitrogen 24 mg/dL (8-24); CO2, Blood 28 mmol/L (21-32); Chloride, Blood 100 mmol/L (98-108); Creatinine, Blood 0.55 mg/dL (0.40-1.00); Glomerular Filtration Rate >60 (60-); Glucose, Blood 155 mg/dL (70-99); Phosphorus, Blood 2.4 mg/dL (2.5-4.9); Potassium, Blood 3.8 mmol/L (3.5-5.5); Sodium, Blood 133 mmol/L (136-145)
--- NOTE | 2019-07-06 05:00 | NUR ---
ADMIT/SHIFT SUMMARY PT ADMITTED FROM ER ON CHART WITH RT AND RN AT HER SIDE. PT TRANSFERED FROM ER BED TO ICU BED 4 WITH ASSIST X4. PT ON BIPAP, SAT DOWN TO MID-50s WHEN OFF BIPAP. PT VERY TALKATIVE AND HAS TO BE REMINDED TO BREATHE SLOW AND DEEP AND TO LEAVE BIPAP IN PLACE. PT INFORMED OF ORDERS AND UPSET R/T NPO. PT DRINKING WATER R/T HX OF THROAT CANCER. PT REMINDED TO REMOVE BIPAP MASK WHEN DRINKING. HEART RATE REGULAR 90-100s, NSR. LUNGS DIMINISHED THROUGHOUT ON ADMISSION. BOWEL SOUNDS PRESENT, STATES NO BM X6 DAYS AND WANTS TO TAKE HOME MIRALAX. DISCUSSED WITH TO BRING NEW CONTAINER FROM HOME AND WILL SEND TO PHARMACY. SKIN WNL EXCEPT PEELING SKIN TO BUTTOCKS FROM PRIOR "REACTION TO HOSPITAL TURN SHEET". TURN SHEET REMOVED FROM PT BED. PT HAS HX OF SPINA BIFIDA AND HAS PAIN, NUMBNESS FROM WAIST DOWN. PT REQUESTING PAIN MEDICATIONS AND SEROQUEL. THIS RN CALLED DR. ALEXANDRA AND SHE WILL ONLY GIVE SEROQUEL AT THIS TIME R/T PT UNRESPONSIVE PRIOR TO ADMIT. PT ON BIPAP WITH SETTINGS 12/6 AND FIO2 40% WITH SAT IN THE 90s. PT VERY ANXIOUS WHEN NOT GETTING THE MEDICATIONS THAT SHE WANTS. WILL CONTINUE TO MONITOR PT.
--- NOTE | 2019-07-06 08:00 | NUR ---
INITIAL ASSESMENT PT ON BIPAP, CALM AND COOPREATIVE AT THIS TIME. AROUSABLE TO VERBAL AND FOLLOWS COMMANDS AND INTERACTS. AFEBRILE, VSS, SR WITH PAPL PULSES AND NO MELODY. COURSE AND DIM BILAT, NO S/S OF RESP DIOSTRESS, RR WNL, SATS IN THE MID TO HIGH 90S. NPO AT THIS TIME ABD FLAT AND NON TENDER, BTS T/O NO BM. OT USES WALKER AND ONE PERSON ASSIST TO TRANSFER TO COMMODE FOR SELF CATH OF DARK ANNEL URINE. BUTTOCKS REDDENED AND SCALLY, WITH BARRIER CREAM APPLIED. WILL WEAN BIPAP AND CONT TO MONITOR.
[2019-07-06] MEDS ORDERED: TIOT18 INH ×2 (10:32→10:36)
--- NOTE | 2019-07-06 12:00 | NUR ---
PT UPDATE BIPAP TAKEN OFF, PT PLACED ON NC AND TOLERATING THUS FAR. VSS, DENIES PAIN AND WILL CONT TO MONITOR
[2019-07-06] MEDS ORDERED: [UNRECOGNIZED DRUG - CODE] PO (20:12)
--- NOTE | 2019-07-06 22:34 | NUR ---
PROVIDER CONTACTED PT REPORTS THAT SHE IS HAVING BODYWIDE PAIN, PRIMARILY IN HER BACK, OF 9/10 ON THE PAIN SCALE. PT IS REQUESTING HOME PAIN MEDICATIONS, WHICH IS OXYCODONE [address] ALEXANDRA'S NOTE, MEDICATIONS HELD INITIALLY DUE TO RESPIRATORY STATUS. RESPIRATORY STATUS IMPROVED AND PATIENT IS CURRENTLY ON HOME USE OXYGEN OF 3L VIA NASAL CANNULA. PT IS CURRENTLY SPEAKING IN FULL SENTENCES AND DOES NOT APPEAR TO BE IN RESPIRATORY DISTRESS. DR ENAMORADO CONTACTED AND HOME DOSE OF OXYCODONE ORDERED. WILL INPUT ORDER AND ADMINISTER WHEN AVAILABLE.
--- NOTE | 2019-07-07 00:13 | NUR ---
PT AGITATION PT CALLING AND REQUESTING DOSE OF MIRALAX AND TO CALL HER . WHEN ATTEMPTING TO EXPLAIN TO PATIENT THAT MIRALAX DOSE WAS CHARTED GIVEN THIS MORNING, PT CONTINUES TO TALK OVER STAFF AND REPEAT THAT "NO MIRALAX HAS BEEN GIVEN SINCE SHE HAS BEEN HERE" AND "SHE HAS NOT HAD A BOWEL MOVEMENT IN EIGHT DAYS". WHEN EXPLAINED THAT DOSE IS ORDERED DAILY AND AN EXTRA DOSE CANNOT BE GIVEN WITHOUT A DOCTOR'S CONSENT. EXPLAINED TO PATIENT THAT BOWEL TONES WERE AUSCULTATED AT START OF SHIFT AND ABDOMEN WAS FELT UPON ASSESSMENT AT START OF SHIFT, AND BS WERE HEARD IN ALL QUADRANTS. PT STARTS TO ESCALATE AND STATE THAT SHE WANTS TO CALL HER AND HAVE HIM BRING IN HER MIRALAX FROM HOME. ATTEMPTED TO EDUCATE PATIENT ON PROCESSES AND THAT TAKING HOME MEDICATIONS WITHOUT STAFF KNOWLEDGE CAN BE COUNTERPRODUCTIVE TO IMPROVEMENT IN STATUS. WHEN ATTEMPTING TO DISCUSS CALLING PHYSICIAN FOR ALTERNATE MEDICATIONS, PT CONTINUES TO TALK OVER STAFF AND IS UNWILLING TO LISTEN TO ATTEMPTED EDUCATION. PT CONTINUES TO ESCALATE AND THROWS TISSUES FROM TABLE TOWARDS STAFF, UPON WHICH CARBON DIOXIDE OPERATORCOLTON, ENTERS THE ROOM AND ASSISTS PATIENT WITH CURRENT REQUEST.
--- NOTE | 2019-07-07 00:51 | NUR ---
PT YELLING AT STAFF HEARD PT YELLING AT RN ABOUT HER MIRALAX. PT STATES,"I WANT MY MIRALAX. I DIDN'T GET IT TODAY". NURSE TRIED TO EXPLAIN THAT ACCORDING TO THE EMAR SHE RECEIVED MIRALAX AT 0901 THIS MORNING. PT WOULD NOT LET NURSE TALK WAS YELLING OVER THE TOP OF THE NURSE. PT THEN HIT THE TISSUE BOX SO IT WENT FLYING ACROSS THE ROOM. NURSE CAME OUT OF THE ROOM. I WENT INTO THE ROOM THE ROOM AND EXPLAINED TO PT THAT SHE COULD NOT THROW THINGS AT THE STAFF. PT STATED,"I DID NOT THROW IT, I JUST HIT IT". EXPLAINED THAT IT WAS NOT ACCEPTABLE TO YELL AT STAFF OR HIT THINGS OFF THE TABLE. PT STATES,"I DON'T WANT THAT NURSE BACK IN HERE". EXPLAINED THAT THERE IS NOT ANOTHER NURSE AVAILABLE TO NIGHT AND WHAT CAN I DO TO HELP HER RIGHT NOW. ASSISTED PT UP TO [facility] WHERE PT SELF CATH FOR URINE OUT PUT. ASSISTED PT WITH CHANGING UNDERCLOTHES. PT BACK TO BED. PT STATES,"I AM NOT GOING TO USE THAT MACHINE TO NIGHT. I WILL JUST USE THE O2 NC. I DON'T WANT THAT NURSE IN HERE AGAIN. I WILL NOT CALL HER". EXPLAINED THAT I DO NOT HAVE ANOTHER NURSE THAT I CAN ASSIGN TO HER TO NIGHT. PT STATES," WELL I KNOW THE PT ADVOCATE AND WILL BE TALKING TO THEM". EXPLAINED THAT IS HER RIGHT, BUT TO NIGHT THERE WILL BE NO MORE YELLING AT MY STAFF. NURSING ENRICHMENT SPECIALIST NOTIFIED.
[2019-07-07 03:28] LABS: BASOPHILS PERCENT AUTO 0 % (0-2); EOSINOPHILS PERCENT AUTO 0 % (0-6); Hematocrit 35.1 % (33.0-51.0); Hemoglobin 11.3 g/dL (11.5-16.0); IMMATURE GRAN ABSOLUTE AUTO 0.05 K/mm3 (0.00-0.10); IMMATURE GRAN PERCENT AUTO 0 % (0-1); LYMPHOCYTES ABSOLUTE AUTO 0.26 K/mm3 (0.84-5.20); LYMPHOCYTES PERCENT AUTO 2 % (21-46); MONOCYTES ABSOLUTE AUTO 0.24 K/mm3 (0.16-1.47); MONOCYTES PERCENT AUTO 2 % (4-13); Mean Corpuscular HGB 28.1 pg (26.0-34.0); Mean Corpuscular HGB Conc 32.2 g/dL (31.5-36.5); Mean Corpuscular Volume 87 fL (80-100); Mean Platelet Volume 10.9 fL (9.1-12.4); NEUTROPHILS ABSOLUTE AUTO 11.13 K/mm3 (1.96-9.15); NEUTROPHILS PERCENT AUTO 95 % (41-73); Platelet Count 234 K/mm3 (150-400); RDW Coefficient Variation 14.6 % (11.7-14.2); RDW Standard Deviation 46.6 fL (35.1-46.3); Red Blood Cell Count 4.02 M/mm3 (3.80-5.20); White Blood Cell Count 11.68 K/mm3 (4.00-11.30)
[2019-07-07 03:46] LABS: Anion Gap 5 mmol/L (6-16); Blood Urea Nitrogen 20 mg/dL (8-24); Bun/Creatinine Ratio 45.2 (12.0-20.0); CO2, Blood 31 mmol/L (21-32); Calcium, Blood 8.2 mg/dL (8.5-10.1); Chloride, Blood 102 mmol/L (98-108); Creatinine, Blood 0.44 mg/dL (0.40-1.00); Glomerular Filtration Rate >60 (60-); Glucose, Blood 151 mg/dL (70-99); Potassium, Blood 3.4 mmol/L (3.5-5.5); Sodium, Blood 138 mmol/L (136-145)
[2019-07-07 03:54] LABS: Vancomycin, Trough 8.4 ug/mL (5.0-10.0)
--- NOTE | 2019-07-07 05:25 | NUR ---
SHIFT SUMMARY PT HAS REMAINED ORIENTED TO SELF, DATE, AND FOLLOWING DIRECTIONS THROUGHOUT THE NIGHT. REMAINS DISORIENTED TO PLACE AND TIME. PT HAS BEEN CALLING OUT FOR HIS DAUGHTER THIS AM AND FREQUENTLY PULLING AT TELEMETRY LEADS, LINENS, AND IVs. VSS. HAS BEEN SEMI-COOPERATIVE WITH CARE. PT HAS NOT SLEPT AT ALL THROUGHOUT THE NIGHT. PT KEPT CPAP MASK ON FOR APPROXIMATELY ONE HOUR LAST NIGHT WHILE ATTEMPTING TO REST, BUT KEPT PULLING IT OFF STATING THAT "IT LEAKS AND I CAN'T WEAR IT". O2 SATS HAVE REMAINED >90% ON RA. PT APPEARS TO BE MORE RESTLESS AND DISORIENTED THE NIGHT CONTINUES, REQUIRING MORE FREQUENT REORIENTATION. PT CONTINUES TO USE URINAL WITH ASSISTANCE; ATTENDS IN PLACE FOR POTENTIAL INCONTINENCE. PT CONTINUES TO HAVE MORE WEAKNESS IN THE LUE THAN THE RUE. NO OTHER CHANGES NOTED FROM INITIAL ASSESSMENT. WILL CONTINUE TO MONITOR AND REPORT TO ONCOMING SHIFT RN. BED IN LOW POSITION, CALL LIGHT IN REACH. BED ALARM SET FOR SAFETY.
--- NOTE | 2019-07-07 06:38 | NUR ---
SHIFT SUMMARY PT HAS REMAINED AOX4 THROUGHOUT SHIFT. VSS. COOPERATION WITH STAFF HAS IMPROVED SINCE IRRITATION EARLIER IN SHIFT. PT HAS RESTED ON AND OFF THROUGHOUT THE REMAINDER OF THE NIGHT, THERE HAVE BEEN NO FURTHER EPISODES OF IRRITABILITY OR FRUSTRATION WITH STAFF. O2 SATS HAVE REMAINED >90% ON 3L VIA NASAL CANNULA. PT WORE BIPAP FOR APPROXIMATELY TWO HOURS LAST NIGHT WHILE ATTEMPTING SLEEP, BUT REFUSED BIPAP USE FOR THE REMAINDER OF SHIFT, STATING "I DON'T WANT TO WEAR THAT TONIGHT". PT CONTINUES TO AMBULATE WITH STANDBY ASSIST AND WALKER TO BEDSIDE COMMODE AND SELF CATH. CARDIAC RHYTHM REMAINS IN NORMAL SINUS WITH A RATE IN THE 80s. NO OTHER CHANGES NOTED FROM INITIAL ASSESSMENT. WILL CONTINUE TO MONITOR AND REPORT TO ONCOMING SHIFT RN. BED IN LOW POSITION, CALL LIGHT IN REACH.
[2019-07-07] MEDS ORDERED: ESTRADIOL1 MG PO (09:26)
--- NOTE | 2019-07-07 13:14 | NUR ---
PT VISITING WITH FRIEND, VSS. PT ABLE TO HAVE CONVERSATION W/O SOB, SATS 95% ON 3L. PT OOB W SBA TO SELF CATH. SERGIO ORDERED PER PT REQUEST. PT TAKING PO WELL, WILL ASK IF IVF CAN BE S.L.
--- NOTE | 2019-07-07 15:50 | NUR ---
recieved report and assumed pt care.
--- NOTE | 2019-07-07 17:31 | NUR ---
PT IS GENERALLY INDEPENDENT IN BED. REMAINS A/O. NO RESP DISTRESS WITH O2 AT 3L NC AND BREATHING "BETTER". PT HAS BEEN SELF CATHING T.O THE DAY. VS NOTED EARLIER. I/O NOTED. IS BRINGING IN HOME CPAP AND SOME SUPPER. CBG NOTED.
--- NOTE | 2019-07-07 17:54 | NUR ---
[facility] note: Tiarra says she is irritated that she "bounced right back here" after being hospitalized and vented last week. She states that "this time I am willing to stay here as long as it takes to get all the way better." She speaks quicky and appears restless. A friend was visiting at bedside. It was clear that Tiarra did not want to speak to me much. I will remain available.
--- NOTE | 2019-07-07 22:43 | NUR ---
[place] of Care: Care assumed at 1900hr. Patient A/O x4, sitting upright in bed, visiting with at bedside. Denies SOB, or dyspnea. VSS, O2-94-96% on 3L/NC. C/o pain (chronic) to bilateral lower extremities, requested prn Oxycontin with her routine HS medications. PRN Oxycontin given, patient stated pain is improving. Denies nausea at shift change, but c/o nausea at approx 2130hr, and vomited x1, approx 150ml. PRN zofran given, and patient now sleeping, no further c/o nausea at this time, will continue to monitor. Peripheral IV's x2 patent and intact. Patient self-caths and notifies staff for assistance when needed. Transfers to bedside commode with one person assist without difficulty. Will continue to monitor for pain, safety, comfort.
[2019-07-08 03:27] LABS: Magnesium, Blood 1.6 mg/dL (1.6-2.4)
[2019-07-08 03:28] LABS: Albumin, Blood 2.4 g/dL (3.4-5.0); Anion Gap 5 mmol/L (6-16); Blood Urea Nitrogen 21 mg/dL (8-24); Bun/Creatinine Ratio 40.2 (12.0-20.0); CO2, Blood 33 mmol/L (21-32); Calcium, Blood 8.2 mg/dL (8.5-10.1); Chloride, Blood 98 mmol/L (98-108); Creatinine, Blood 0.52 mg/dL (0.40-1.00); Glomerular Filtration Rate >60 (60-); Glucose, Blood 84 mg/dL (70-99); Phosphorus, Blood 3.2 mg/dL (2.5-4.9); Potassium, Blood 3.9 mmol/L (3.5-5.5); Sodium, Blood 136 mmol/L (136-145)
[2019-07-08 03:29] LABS: Vancomycin, Trough 11.5 ug/mL (5.0-10.0)
--- NOTE | 2019-07-08 06:03 | NUR ---
Shift Summary: Patient slept well throughout shift. No further c/o pain following Oxycontin given early in shift, appears calm and comfortable when awake. No further N/V, following x1 emesis early in shift. VSS, O2-93-96% on 3L/NC, continues to deny dyspnea/sob. Continues to transfer to bedside commode via [id number], but somewhat unsteady on her feet. Will continue to monitor until report to day shift RN.
--- NOTE | 2019-07-08 10:40 | NUR ---
PT AWAKE IN BED THIS AM, OX3. PLEASANT/COOPERATIVE. VSS. PT C/O CHRONIC PAIN 01/15 TO "FROM MY WAIST DOWN". OXYCONTIN GIVEN. PT C/O ABD DISTENSION, ABD FIRM AND DISTENDED W HYPERATIVE BT'S X4. PT STATES SHE NEEDS TO HAVE BM; HOME MIRALAX TO BE GIVEN. CRACKLES REMAIN TO BASES BILAT. PT STATES HE BREATHING FEELS BETTER. SATS STABLE ON 3L N/C. BREATHING REG AND UNLABORED.
--- NOTE | 2019-07-08 18:35 | NUR ---
REPORT GIVEN TO [facility] FLOOR RN AT 1645. PT TRANSFERED TO [facility] IN STABLE CONDITION. PT CONTINUES TO C/O DISTENDED ABD, PT STATES SHE HAS BEEN PASSING FLAUS, BT'S REMAIN ACTIVE T/O BUT TYMPANIC. PT MED W OXYCONTIN FOR CHRONIC PAIN. PT DENIES NAUSEA. PT REQUEST EXTRA WATER WHICH WAS GIVEN TO HER.
--- NOTE | 2019-07-08 19:31 | NUR ---
END OF SHIFT: PATIENT TRANSFERRED TO UNIT FROM ICU. REPORT RECEIVED FROM JOHNATHAN COWART RN. PATIENT DENIED PAIN BUT REPORTS ABDOMINAL DISCOMFORT. PATIENT EXPRESSED ANXIETY ABOUT DEVELOPING AN OBSTRUCTION. DISCUSSED CURRENT PLAN. PATIENT IS ACTIVELY INCREASING ACTIVITY (IN BED), TAKING IN MORE THAN ADEQUATE WATER, AND UTILIZING HER HOME MIRALAX (SEE EMAR). ASSISTED PATIENT TO BEDSIDE COMMODE. PATIENT INDEPENDENT WITH HOME FWW. REQUIRES ASSISTANCE WITH SUPPLY GATHERING AND UNDERGARMENTS. OTHERWISE INDEPENDENT. PATIENT ALERT AND ORIENTED. SPEAKS IN A HOARSE VOICE AT BASELINE. DENIES SOB OR DIFFICULTY BREATHING. STABLE ON 3L VIA NC. NO INCREASE IN SOB NOTED WITH ACTIVITY TO BEDSIDE COMMODE.
--- NOTE | 2019-07-08 19:40 | NUR ---
PATIENT WATCHING TV, JUST FINISHED USING THE [facility] WITH DAY NURSE. SELF CATH WITH 800 OUTPUT. IS ABLE TO GET UP WITH 4WW, AND TRANSFER SELF WITH STAND BY ASSIST. STATES SHE IS HUNGRY AND DOES NOT LIKE THE FOOD THEY BROUGHT HER FOR DINNER, SO SHE ASKED FOR PBJ SANDWICH. WILL SEE ABOUT ORDERING IT FROM THE [facility]. DENIES ANY PAIN OR DISCOMFORT. LUNG SOUNDS WITH WHEEZES AND FINE CRACKLES IN THE BASES. STATES COUGH IS SLIGHT SMALL AMOUNT. CALL LIGHT IN REACH. ENCOURAGE HER TO CALL FOR HELP.
--- NOTE | 2019-07-09 04:30 | NUR ---
PATIENT VOMITED AGAIN GREEN BILE. SHE IS STARTING TO FEEL WORSE AND COMPLAINS OF HER HANDS AND FEET CRAMPING UP. STATES THAT HAS NEVER HAPPENED BEFORE. WAS ABLE TO DISCUSS WITH HER THAT ONLY WAY SHE CAN GET BETTER IS IF WE GET AN IV IN. SHE AGREED. SO THE CHARGE NURSE GIBSON LEWIS WAS ABLE TO GET A 22G IN THE RIGHT FA. I WAS ABLE TO VIDEO SURVEILLANCE TECHNICIAN IV FLUIDS AND GIVE HER SOME ZOFRAN IV. AFTER CALLING MD TO VERIFY GIVING HER ZOFRAN EARLY. WILL CONTINUE TO WORK WITH HER FOR TREATMENT AND CARE.
[2019-07-09 05:12] LABS: Hematocrit 37.8 % (33.0-51.0); Hemoglobin 11.9 g/dL (11.5-16.0); Mean Corpuscular HGB 27.9 pg (26.0-34.0); Mean Corpuscular HGB Conc 31.5 g/dL (31.5-36.5); Mean Corpuscular Volume 89 fL (80-100); Mean Platelet Volume 10.4 fL (9.1-12.4); Platelet Count 233 K/mm3 (150-400); RDW Coefficient Variation 14.4 % (11.7-14.2); RDW Standard Deviation 46.5 fL (35.1-46.3); Red Blood Cell Count 4.26 M/mm3 (3.80-5.20); White Blood Cell Count 8.87 K/mm3 (4.00-11.30)
[2019-07-09 05:34] LABS: Albumin, Blood 2.4 g/dL (3.4-5.0); Anion Gap 3 mmol/L (6-16); Blood Urea Nitrogen 14 mg/dL (8-24); Bun/Creatinine Ratio 26.9 (12.0-20.0); CO2, Blood 35 mmol/L (21-32); Calcium, Blood 8.1 mg/dL (8.5-10.1); Chloride, Blood 101 mmol/L (98-108); Creatinine, Blood 0.52 mg/dL (0.40-1.00); Glomerular Filtration Rate >60 (60-); Glucose, Blood 107 mg/dL (70-99); Phosphorus, Blood 3.1 mg/dL (2.5-4.9); Potassium, Blood 3.4 mmol/L (3.5-5.5); Sodium, Blood 139 mmol/L (136-145)
--- NOTE | 2019-07-09 05:44 | NUR ---
SHIFT SUMMARY: MAGDALENO HAS BEEN DOING GOOD ALL NIGHT, SHE HAS SLEPT OFF AND ON BETWEEN IV ALARMING AND USING THE BATHROOM. SHE HAS BEEN ABLE TO GET UP WITH 1 PERSON ASSIST TO BEDSIDE COMMODE FOR SELF CATHERIZATION. EACH TIME WITH GOOD URINE OUTPUT. IV ANTIBOTICS HAVE BEEN INFUSING MOST OF THE NIGHT PER ORDERS. SHE HAS NOT COMPLAINED OF PAIN ONLY HUNGER. WHICH SHE WAS GIVEN SNACKS THROUGHOUT THE NIGHT. BOTTOM IS STILL RED WITH SOME DRY FLAKES, ENCOURAGED HER TO REPOSITION OFTEN. MEDS GIVEN PER ORDERS. CALL LIGHT REMAINED IN REACH AND USED APPROPRIATLY. NO OTHER CHANGES TO NOTE AT THIS TIME.
--- NOTE | 2019-07-09 09:28 | NUR ---
REFUSES MEDS AT THIS TIME. REPEATS"I WANT TO SLEEP." WILL TRY LATER.
--- NOTE | 2019-07-09 10:46 | NUR ---
CALL FROM TO ORDER LEVOFLOXIN 750 MG P.O. NOW AND DAILY. TO WATCH TO MAKE SURE NO ADVERSE EFFECTS.
[2019-07-09] MEDS ORDERED: ACET325 PO (12:29)
[2019-07-09] MEDS ORDERED: Vsl#3 Capsule1 EACH PO (12:31)
[2019-07-09] MEDS ORDERED: Augmentin 875-1 EACH PO (12:32)
[2019-07-09] MEDS ORDERED: LEVOFLOXACIN750 MG PO (12:33)
[2019-07-09] MEDS ORDERED: DUONEB INH (12:35)
--- NOTE | 2019-07-09 13:58 | NUR ---
LEFT MESSAGE ON VOICE MAIL, PATIENT REQUEST ESTRACE 1MG WHICH IS ON HER MED REC AND TAKES DAILY. AWAITING ORDERS.
--- NOTE | 2019-07-09 15:57 | NUR ---
REVIEW D'C W/PATIENT. AWARE TO WOUND CARE PHYSICIAN RX AT [facility] IN [facility]. AWARE TO F/U W/PCP. SON WENT HOME TO GET CLOTHES AND WILL WOUND CARE PHYSICIAN PATIENT.
== END 2019-07-09 16:27 | disposition home or self-care (01) | DRG 871 ==
LOC: ER 21:56 → ICUE 07-06 00:28 → ICUW 07-06 00:28 → ICUE 07-06 02:50 → MEDS 07-08 18:09 → ENPENDDIS 07-09 11:55 → MEDS 07-09 16:27
PROVIDERS: Emergency Medicine; Internal Medicine; Internal Medicine Critical Care Medicine; ADMIT Family Medicine
PROC: 5A09357 Assistance with Respiratory Ventilation, Less than 24 Consecutive Hours, Continuous Positive Airway Pressure (ICD-10-PCS; principal; 2019-07-05)
DX: A41.9 Sepsis, unspecified organism (principal); J18.9 Pneumonia, unspecified organism; J96.21 Acute and chronic respiratory failure with hypoxia; J96.22 Acute and chronic respiratory failure with hypercapnia; J44.0 Chronic obstructive pulmonary disease with (acute) lower respiratory infection; J44.1 Chronic obstructive pulmonary disease with (acute) exacerbation; F11.20 Opioid dependence, uncomplicated; E87.1 Hypo-osmolality and hyponatremia; R64 Cachexia; R65.20 Severe sepsis without septic shock; E87.6 Hypokalemia; E83.42 Hypomagnesemia; E83.39 Other disorders of phosphorus metabolism; G89.4 Chronic pain syndrome; Q05.9 Spina bifida, unspecified; F32.9 Major depressive disorder, single episode, unspecified; G47.33 Obstructive sleep apnea (adult) (pediatric); F17.210 Nicotine dependence, cigarettes, uncomplicated; Z99.81 Dependence on supplemental oxygen; T38.0X5A Adverse effect of glucocorticoids and synthetic analogues, initial encounter; R73.9 Hyperglycemia, unspecified; Z88.2 Allergy status to sulfonamides; Z88.8 Allergy status to other drugs, medicaments and biological substances; Z88.1 Allergy status to other antibiotic agents; Z91.040 Latex allergy status; Z79.899 Other long term (current) drug therapy
CPT/HCPCS: 36415; 71045; 80048; 80053; 80069; 80202; 81001; 82803; 82947; 83605; 83735; 83880; 84145; 84484; 85025; 85027; 87040; 87070; 87081; 87086; 87205; 93005; 93010; 94640; 94644; 94660; 94762; 96374; 96375; 99285-25; A9270; G0480; J0456; J0696; J1815; J2405; J2543; J2920; J2930; J3370; J3475; J7030; J7050; J7120

== ENCOUNTER 2019-07-19 22:59 | Emergency (ER) | payer MEDICARE, OTHER ==
[~2019-07-19] VITALS: Ht 142.2 cm; Wt 39.9 kg
[~2019-07-19 22:59] MED LIST changes: +ACET325 PO; +Augmentin 875-1 EACH PO; +DUONEB INH; +ESTRADIOL1 MG PO; +LEVOFLOXACIN750 MG PO; +Vsl#3 Capsule1 EACH PO; +[UNRECOGNIZED DRUG - CODE] PO
[2019-07-19 23:55] LABS: BASOPHILS ABSOLUTE AUTO 0.06 K/mm3 (0.00-0.23); BASOPHILS PERCENT AUTO 1 % (0-2); EOSINOPHILS ABSOLUTE AUTO 0.16 K/mm3 (0.00-0.68); EOSINOPHILS PERCENT AUTO 2 % (0-6); Hematocrit 34.7 % (33.0-51.0); Hemoglobin 10.9 g/dL (11.5-16.0); IMMATURE GRAN ABSOLUTE AUTO 0.04 K/mm3 (0.00-0.10); IMMATURE GRAN PERCENT AUTO 0 % (0-1); LYMPHOCYTES ABSOLUTE AUTO 0.78 K/mm3 (0.84-5.20); LYMPHOCYTES PERCENT AUTO 8 % (21-46); MONOCYTES ABSOLUTE AUTO 0.58 K/mm3 (0.16-1.47); MONOCYTES PERCENT AUTO 6 % (4-13); Mean Corpuscular HGB 28.2 pg (26.0-34.0); Mean Corpuscular HGB Conc 31.4 g/dL (31.5-36.5); Mean Corpuscular Volume 90 fL (80-100); Mean Platelet Volume 10.5 fL (9.1-12.4); NEUTROPHILS ABSOLUTE AUTO 8.44 K/mm3 (1.96-9.15); NEUTROPHILS PERCENT AUTO 84 % (41-73); Platelet Count 201 K/mm3 (150-400); RDW Coefficient Variation 15.9 % (11.7-14.2); RDW Standard Deviation 52.5 fL (35.1-46.3); Red Blood Cell Count 3.87 M/mm3 (3.80-5.20); White Blood Cell Count 10.06 K/mm3 (4.00-11.30)
[2019-07-20 00:14] LABS: Alanine Aminotransfer (ALT/SGP 18 U/L (12-78); Albumin, Blood 2.8 g/dL (3.4-5.0); Albumin/Globulin Ratio 0.8 (0.8-1.8); Alk Phos 81 U/L (50-136); Anion Gap 3 mmol/L (6-16); Aspartate Aminotrans (AST/SGOT 16 U/L (12-37); Bilirubin, Total 0.3 mg/dL (0.1-1.0); Blood Urea Nitrogen 13 mg/dL (8-24); Bun/Creatinine Ratio 17.1 (12.0-20.0); CO2, Blood 33 mmol/L (21-32); Calcium, Blood 7.8 mg/dL (8.5-10.1); Chloride, Blood 101 mmol/L (98-108); Creatinine, Blood 0.76 mg/dL (0.40-1.00); Globulin, Blood 3.6 g/dL (2.2-4.0); Glomerular Filtration Rate >60 (60-); Glucose, Blood 110 mg/dL (70-99); Magnesium, Blood 2.1 mg/dL (1.6-2.4); Potassium, Blood 4.3 mmol/L (3.5-5.5); Sodium, Blood 137 mmol/L (136-145); Total Protein, Blood 6.4 g/dL (6.4-8.2)
[2019-07-20] MEDS ORDERED: MOVANTIK12.5 MG PO (03:09)
== END 2019-07-20 03:37 | disposition home or self-care (01) ==
LOC: ER 22:59
PROVIDERS: Emergency Medicine
DX: K59.00 Constipation, unspecified (principal); Z88.2 Allergy status to sulfonamides; Z88.1 Allergy status to other antibiotic agents; Z91.040 Latex allergy status; Z88.0 Allergy status to penicillin; Z79.899 Other long term (current) drug therapy; J44.9 Chronic obstructive pulmonary disease, unspecified; F17.210 Nicotine dependence, cigarettes, uncomplicated
CPT/HCPCS: 36415; 74018; 74176; 80053; 83735; 85025; 96360; 99284-25; J7030

== ENCOUNTER 2019-07-26 07:42 | Inpatient (IN) | payer MEDICARE, OTHER ==
[~2019-07-26] VITALS: Ht 149.9 cm; Wt 43.4 kg
[~2019-07-26 07:42] MED LIST changes: +MOVANTIK12.5 MG PO
[2019-07-26 08:09] LABS: PCO2 Arterial 68.7 mmHg (35-45); PO2 Arterial 70.2 mmHg (80-100)
[2019-07-26 08:10] LABS: pH Blood Arterial 7.27 (7.35-7.45)
[2019-07-26 08:28] LABS: BASOPHILS ABSOLUTE AUTO 0.06 K/mm3 (0.00-0.23); BASOPHILS PERCENT AUTO 1 % (0-2); EOSINOPHILS ABSOLUTE AUTO 0.13 K/mm3 (0.00-0.68); EOSINOPHILS PERCENT AUTO 2 % (0-6); Hematocrit 39.1 % (33.0-51.0); Hemoglobin 11.8 g/dL (11.5-16.0); IMMATURE GRAN ABSOLUTE AUTO 0.03 K/mm3 (0.00-0.10); IMMATURE GRAN PERCENT AUTO 0 % (0-1); LYMPHOCYTES ABSOLUTE AUTO 0.48 K/mm3 (0.84-5.20); LYMPHOCYTES PERCENT AUTO 5 % (21-46); MONOCYTES ABSOLUTE AUTO 0.56 K/mm3 (0.16-1.47); MONOCYTES PERCENT AUTO 6 % (4-13); Mean Corpuscular HGB 28.2 pg (26.0-34.0); Mean Corpuscular HGB Conc 30.2 g/dL (31.5-36.5); Mean Platelet Volume 10.6 fL (9.1-12.4); NEUTROPHILS ABSOLUTE AUTO 7.56 K/mm3 (1.96-9.15); NEUTROPHILS PERCENT AUTO 86 % (41-73); Platelet Count 236 K/mm3 (150-400); RDW Coefficient Variation 16.2 % (11.7-14.2); RDW Standard Deviation 55.8 fL (35.1-46.3); Red Blood Cell Count 4.18 M/mm3 (3.80-5.20); White Blood Cell Count 8.82 K/mm3 (4.00-11.30)
[2019-07-26 08:45] LABS: Mean Corpuscular Volume 94 fL (80-100)
[2019-07-26 08:49] LABS: Alanine Aminotransfer (ALT/SGP 20 U/L (12-78); Albumin, Blood 2.9 g/dL (3.4-5.0); Albumin/Globulin Ratio 0.7 (0.8-1.8); Alk Phos 100 U/L (50-136); Anion Gap 2 mmol/L (6-16); Aspartate Aminotrans (AST/SGOT 16 U/L (12-37); Bilirubin, Total 0.3 mg/dL (0.1-1.0); Blood Urea Nitrogen 17 mg/dL (8-24); Bun/Creatinine Ratio 25.9 (12.0-20.0); CO2, Blood 32 mmol/L (21-32); Calcium, Blood 8.5 mg/dL (8.5-10.1); Chloride, Blood 103 mmol/L (98-108); Creatinine, Blood 0.66 mg/dL (0.40-1.00); Free Thyroxine 0.73 ng/dL (0.70-1.60); Globulin, Blood 3.9 g/dL (2.2-4.0); Glomerular Filtration Rate >60 (60-); Glucose, Blood 96 mg/dL (70-99); Potassium, Blood 4.8 mmol/L (3.5-5.5); Sodium, Blood 137 mmol/L (136-145); Total Protein, Blood 6.8 g/dL (6.4-8.2)
[2019-07-26] MEDS ORDERED: NORT25 PO (08:57)
[2019-07-26] MEDS ORDERED: CLIMARA1 EACH PO (08:57)
[2019-07-26] MEDS ORDERED: ESCI20 PO (08:57)
[2019-07-26 08:58] LABS: Thyroid Stimulating Hormone 3.7 uIU/mL (0.360-4.800)
[2019-07-26] MEDS ORDERED: Nexium40 MG PO (08:58)
[2019-07-26] MEDS ORDERED: ALBU90OI (08:58)
[2019-07-26] MEDS ORDERED: BACL20 PO (08:58)
[2019-07-26] MEDS ORDERED: PREG150 PO (08:58)
[2019-07-26] MEDS ORDERED: Seroquel Xr50 MG PO (08:58)
[2019-07-26] MEDS ORDERED: OXYC30ER PO (08:59)
[2019-07-26] MEDS ORDERED: TIOT18 (08:59)
[2019-07-26] MEDS ORDERED: MIRALAX17 GM (08:59)
[2019-07-26 10:14] LABS: U Amphetamine Screen Not Detected; U Barbituate Screen Not Detected; U Benzodiazapine Screen Not Detected; U Buprenorphine Screen Not Detected; U Cannabinoids Screen Not Detected; U Cocaine Screen Not Detected; U Methadone Screen Not Detected; U Methamphetamine Screen Not Detected; U Opiates Screen Not Detected; U Oxycodone Screen DETECTED; U Phencyclidine Screen Not Detected; U Propoxyphene Screen Not Detected
[2019-07-26 11:11] LABS: PCO2 Arterial 60.7 mmHg (35-45); PO2 Arterial 81.7 mmHg (80-100); pH Blood Arterial 7.34 (7.35-7.45)
--- NOTE | 2019-07-26 12:10 | NUR ---
ASSUMED CARE OF PT FROM ED AT 1126. ARRIVED VIA GURNEY ON VENTILATOR (AC 450/16/50% FIO2/PEEP 5. LUNGS CLEAR THROUGHOUT. TEMP 100 PER TEMP TERESA. OGT PLACED BY Kenny HAJI, SPICE MILLER HAMMER MILL. PROPOFOL INFUSING AT 40 MCG/KG/HR (11 ML/HR). SINUS RHTYHM, HR 93. HOB ELEVATED TO 30 DEGREES.
--- NOTE | 2019-07-26 14:41 | NUR ---
DR. SPENCER AT BEDSIDE, SPEAKING TO PT'S SON AND SO, GIVING UPDATE AND RECEIVING SOME ADDITIONAL HISTORY. PLAN IS FOR DR. EDWARD (ENT) TO SEE PT TOMORROW TO EVALUATE THROAT SWELLING. PT WILL BE KEPT SEDATED AND INTUBATED FOR TODAY.
[2019-07-26 17:12] LABS: Adenovirus Not Detected (NOT DETECT); Coronavirus 229E Not Detected (NOT DETECT); Coronavirus HKU1 Not Detected (NOT DETECT); Coronavirus NL63 Not Detected (NOT DETECT); Coronavirus OC43 Not Detected (NOT DETECT); Human Metapneumovirus Not Detected (NOT DETECT); Human Rhinovirus/Enterovirus Not Detected (NOT DETECT); Influenza A Not Detected (NOT DETECT); Influenza A/2009-H1 Not Detected (NOT DETECT); Influenza A/H1 Not Detected (NOT DETECT); Influenza A/H3 Not Detected (NOT DETECT); Influenza B Not Detected (NOT DETECT)
[2019-07-26 17:13] LABS: Bordetella pertussis Not Detected (NOT DETECT); Chlamydophila pneumoniae Not Detected (NOT DETECT); Mycoplasma pneumoniae Not Detected (NOT DETECT); Parainfluenza Virus 1 Not Detected (NOT DETECT); Parainfluenza Virus 2 Not Detected (NOT DETECT); Parainfluenza Virus 3 Not Detected (NOT DETECT); Parainfluenza Virus 4 Not Detected (NOT DETECT); Respiratory Syncytial Virus Not Detected (NOT DETECT)
--- NOTE | 2019-07-26 18:32 | NUR ---
SHIFT SUMMARY: PT SEDATED WITH PROPOFOL, ON VENTILATOR WITH SETTINGS AC/16/350/30% FIO2/PEEP 5, TOLERATING WELL. MEDICATED FOR PAIN X 1 WITH GOOD EFFECT. OGT CONFIRMED BY XRAY. TERESA DRAINING ADEQUATE URINE. INCONTINENT OF STOOL X 1, WEARING ATTENDS. SINUS RHYTHM, VSS. BILATERAL WRIST RESTRAINTS.
--- NOTE | 2019-07-26 20:15 | NUR ---
PT INTUBATED AND SEDATED WITH PROPOFOL. PT AROUSES EASILY TO VOICE. WILL FOLLOW COMMANDS TO CORN POPPER WITH HANDS AND MOVE FEET. DID NOT CLEARLY NOD HEAD YES OR NO WITH QUESTIONS. PT HAS SWELLING TO EYELID'S AND AROUND THROAT. RESTRAINTS ON AND KEEPING PT SEDATED DUE TO BEING DIFFICULT INTUBATION WITH SWELLING AROUND THROAT. SEE ASSESSMENT.
[2019-07-26 20:48] LABS: Source, Urine Catheter
[2019-07-26 21:01] LABS: Appearance, Urine Clear (Clear); Bilirubin, Urine Neg (Neg); Blood, Urine Neg (Neg); Color, Urine Yellow (P-Yellow); Glucose Qualitative, Urine Neg (Neg); Ketones, Urine 2+ (Neg); Leukocyte Esterase, Urine Neg (Neg); Nitrite, Urine Neg (Neg); Protein, Urine Neg (Neg); Urobilinogen, Urine NORM (Normal)
[2019-07-27 03:48] LABS: BASOPHILS PERCENT AUTO 0 % (0-2); EOSINOPHILS PERCENT AUTO 0 % (0-6); Hematocrit 35.5 % (33.0-51.0); Hemoglobin 11.3 g/dL (11.5-16.0); IMMATURE GRAN ABSOLUTE AUTO 0.01 K/mm3 (0.00-0.10); IMMATURE GRAN PERCENT AUTO 1 % (0-1); LYMPHOCYTES PERCENT AUTO 9 % (21-46); MONOCYTES ABSOLUTE AUTO 0.04 K/mm3 (0.16-1.47); MONOCYTES PERCENT AUTO 2 % (4-13); Mean Corpuscular HGB 27.8 pg (26.0-34.0); Mean Corpuscular HGB Conc 31.8 g/dL (31.5-36.5); Mean Platelet Volume 10.6 fL (9.1-12.4); NEUTROPHILS ABSOLUTE AUTO 1.96 K/mm3 (1.96-9.15); NEUTROPHILS PERCENT AUTO 89 % (41-73); Platelet Count 192 K/mm3 (150-400); RDW Coefficient Variation 16.1 % (11.7-14.2); Red Blood Cell Count 4.06 M/mm3 (3.80-5.20); White Blood Cell Count 2.21 K/mm3 (4.00-11.30)
[2019-07-27 03:50] LABS: Mean Corpuscular Volume 87 fL (80-100)
[2019-07-27 04:06] LABS: Alanine Aminotransfer (ALT/SGP 14 U/L (12-78); Albumin, Blood 2.7 g/dL (3.4-5.0); Albumin/Globulin Ratio 0.8 (0.8-1.8); Alk Phos 90 U/L (50-136); Anion Gap 7 mmol/L (6-16); Aspartate Aminotrans (AST/SGOT 11 U/L (12-37); Bilirubin, Total 0.6 mg/dL (0.1-1.0); Blood Urea Nitrogen 18 mg/dL (8-24); Bun/Creatinine Ratio 34.5 (12.0-20.0); CO2, Blood 30 mmol/L (21-32); Calcium, Blood 8.4 mg/dL (8.5-10.1); Chloride, Blood 101 mmol/L (98-108); Creatinine, Blood 0.52 mg/dL (0.40-1.00); Globulin, Blood 3.5 g/dL (2.2-4.0); Glomerular Filtration Rate >60 (60-); Glucose, Blood 129 mg/dL (70-99); Magnesium, Blood 2.2 mg/dL (1.6-2.4); Potassium, Blood 4.4 mmol/L (3.5-5.5); Sodium, Blood 138 mmol/L (136-145); Total Protein, Blood 6.2 g/dL (6.4-8.2)
[2019-07-27 04:51] LABS: PCO2 Arterial 45.7 mmHg (35-45); PO2 Arterial 70.1 mmHg (80-100); pH Blood Arterial 7.45 (7.35-7.45)
--- NOTE | 2019-07-27 06:04 | NUR ---
SUMMARY PT INTUBATED AND SEDATED WITH PROPOFOL. PT AROUSES EASILY TO VOICE. ABLE TO FOLLOW COMMANDS AND IS ABLE TO NOD YES OR NO APPROPRIATELY TO QUESTIONS NOW. VENT SETTINGS REMAIN THE SAME. PERIORBITAL SWELLING HAS IMPROVED BUT STILL THERE. THROAT IS ALSO STILL SWOLLEN. NO ACUTE CHANGES THIS SHIFT.
--- NOTE | 2019-07-27 07:15 | NUR ---
ASSUMED CARE OF PATIENT. SEDATED, AROUSES TO SPEECH, FOLLOWS COMMANDS. VENT: AC/16/350/30%/5, TOLERATING WELL. SINUS RHYTHM, HR 90'S. O2 SAT 95%.
--- NOTE | 2019-07-27 10:30 | NUR ---
ALL PATIENT RINGS (TOTAL OF 5) REMOVED FROM HER FINGERS TO PREVENT THEM NEEDING TO BE CUT OFF D/T EDEMA. RINGS GIVEN TO HER JUAN LUIS TO TAKE HOME.
--- NOTE | 2019-07-27 16:00 | NUR ---
DR. EDWARD AT BEDSIDE AT 1506 FOR LARYNGOSCOPY. FENTANYL 50 MCG IV GIVEN JUST BEFORE PROCEDURE WITH ANOTHER 50 MCG ORDERED AND GIVEN DURING THE PROCEDURE. PROVIDER UNABLE TO ADVANCE SCOPE THROUGH EITHER NARES, WENT ORALLY. ABLE TO VISUALIZE DIFFUSE EDEMA. WILL CONTINUE TO CHECK PROGRESS EACH DAY. DR. SPENCER ORDERED TO KEEP PT SEDATED AND FENTANYL IV GIVEN Q1H FOR PAIN.
--- NOTE | 2019-07-27 17:05 | NUR ---
ECHOCARDIOGRAM COMPLETED
--- NOTE | 2019-07-27 19:23 | NUR ---
SHIFT SUMMARY: SEDATED ON PROPOFOL DURING THIS SHIFT. FENTANYL GIVEN FOR PAIN PER EMAR. VENT SETTINGS: AC, RR 16, TV 350, FIO2 30%, PEEP 5; TOLERATING WELL. SMALL AMOUNT CLEAR SECRETIONS WHEN ETT SUCTIONED. PROPOFOL TITRATED TO 50 MCG/KG/HR. LUNGS CTAB. SKIN INTACT, TURNING [id number]. NO BM TODAY, BOWEL MEDS ORDERED. GOOD URINE OUTPUT. MOLD CLEANER CONSULT ORDERED FOR ENTERAL FEEDINGS.
--- NOTE | 2019-07-27 22:57 | NUR ---
PT INTUBATED AND SEDATED WITH PROPOFOL AT 50MCG. PT AROUSES EASILY EVEN TO ANY SMALL NOISE IN THE ROOM. PT ABLE TO FOLLOW COMMANDS AND NODS HEAD YES OR NO TO QUESTIONS. GAVE FENTANYL EARLIER DUE TO PT NODDING YES TO PAIN. PT WILL NOT ALLOW MUCH ORAL CARE DUE TO SORE MOUTH. SHE WILL THRASH HER HEAD SIDE TO SIDE. STATES PT HAS BEEN HAVING ISSUES WITH TEETH FOR AWHILE BUT HAS NOT BEEN WELL ENOUGH TO GET ANYTHING DONE WITH THEM. NO SIGN OF DISTRESS AT THE MOMENT.
[2019-07-28 03:51] LABS: BASOPHILS PERCENT AUTO 0 % (0-2); EOSINOPHILS PERCENT AUTO 0 % (0-6); Hematocrit 39.6 % (33.0-51.0); Hemoglobin 12.8 g/dL (11.5-16.0); IMMATURE GRAN ABSOLUTE AUTO 0.01 K/mm3 (0.00-0.10); IMMATURE GRAN PERCENT AUTO 0 % (0-1); LYMPHOCYTES ABSOLUTE AUTO 0.34 K/mm3 (0.84-5.20); LYMPHOCYTES PERCENT AUTO 9 % (21-46); MONOCYTES ABSOLUTE AUTO 0.23 K/mm3 (0.16-1.47); MONOCYTES PERCENT AUTO 6 % (4-13); Mean Corpuscular HGB 28.2 pg (26.0-34.0); Mean Corpuscular HGB Conc 32.3 g/dL (31.5-36.5); Mean Corpuscular Volume 87 fL (80-100); NEUTROPHILS ABSOLUTE AUTO 3.28 K/mm3 (1.96-9.15); NEUTROPHILS PERCENT AUTO 85 % (41-73); Platelet Count 245 K/mm3 (150-400); RDW Coefficient Variation 16.4 % (11.7-14.2); RDW Standard Deviation 52.5 fL (35.1-46.3); Red Blood Cell Count 4.54 M/mm3 (3.80-5.20); White Blood Cell Count 3.86 K/mm3 (4.00-11.30)
[2019-07-28 04:08] LABS: Anion Gap 5 mmol/L (6-16); Blood Urea Nitrogen 18 mg/dL (8-24); CO2, Blood 31 mmol/L (21-32); Calcium, Blood 8.2 mg/dL (8.5-10.1); Chloride, Blood 101 mmol/L (98-108); Creatinine, Blood 0.49 mg/dL (0.40-1.00); Glomerular Filtration Rate >60 (60-); Glucose, Blood 124 mg/dL (70-99); Potassium, Blood 4.4 mmol/L (3.5-5.5); Sodium, Blood 137 mmol/L (136-145)
--- NOTE | 2019-07-28 05:51 | NUR ---
SUMMARY PT INTUBATED AND SEDATED WITH PROPOFOL AT 50MCG. ONLY GAVE FENTANYL FOR PAIN 2X DURING THE NIGHT. WILL REST WHEN LEFT ALONE. AROUSES TO ANY LITTLE NOISE IN THE ROOM. NO ACUTE CHANGES THIS SHIFT.
--- NOTE | 2019-07-28 07:00 | NUR ---
REC'D BEDSIDE REPORT FROM DEBBIE LAINEZ AND AM NOW ASSUMING CARE OF THIS PT.
--- NOTE | 2019-07-28 09:27 | NUR ---
DR SZYMANSKI IN TO ASSESS PT. UPDATED HIM WITH PT'S CURRENT STATUS. SEE NEW ORDERS.
--- NOTE | 2019-07-28 16:08 | NUR ---
PT UPDATE: PT WIDE AWAKE, ATTEMPTING TO TO PULL OUT TUBE. PT STARTED ON PRECEDEX. PT WAS SWITCHED TO SPONTANEOUS MODE PRIOR TO STARTING PRECEDEX, HOWEVER, ONCE PT HAS MORE SEDATE ON PRECEDEX, RR SLOWED TO <10/MIN. AC MODE RESTARTED AT PRIOR SETTINGS. PT NOW APPEARS CALM/COMFORTABLE.
--- NOTE | 2019-07-28 17:00 | NUR ---
SHIFT SUMMARY: PT REMAINS INTUBATED AND SEDATED W/PROPOFOL AND HAD TO ADD TITRATED PRECEDEX, PT HAD INCREASING ALERTNESS/AGGITATION/RESTLESSNESS, DESPITE INCREASED DOSES OF PROPOFOL AND IVP FENTANYL. WHEN ALERT PT ABLE TO TRACK, ANSWER YES/NO QUESTIONS, AND FOLLOW SIMPLE COMMANDS. LUNGS ARE CLEAR T/O BILATERALLY AT THIS TIME. ATTEMPTED SPONTANEOUS MODE, WHICH PT DID VERY WELL, UNTIL PRECEDEX WAS STARTED AND REQUIRED BEING CHANGED BACK TO AC. HR REGULAR, SR-80-90'S RANGE. CONTINUE MILD MARYA-ORBITAL/NECK EDEMA IMPROVED. DR EDWARD TO BE IN TOMORROW TO REASSESS PT AND POTENTIAL EXTUBATION AT AROUND 1200. POWERGLIDE PLACED IN HER RT UA TODAY, R/T POOR IV ACCESS, WITH TITRATED PROPOFOL/PRECEDEX INFUSING. ABD MILDLY DISTENDED/NON-TENDER TO PALPATION. BT'S HYPOACTIVE. PT STARTED ON VITAL HIGH PROTEIN TUBE FEEDS AT GOAL RATE OF 25ML/HR. RESIDUALS <5ML. NO BM THIS SHIFT. TERESA CATH DRAINING CLEAR, GREENISH COLORED URINE IN ADEQUATE AMTS.
--- NOTE | 2019-07-28 20:53 | NUR ---
ASSUMED CARE OF PT, REPORT RCV'D FROM DEBBIE OLVERA. PT INTUBATED AND SEDATED. PT ALERT TO SOUND AND FOLLOWING DIRECTIONS. VENT SETTINGS AC 350/16/5/25%. SEDATED ON PROPOFOL 40 MCG/KG/MIN AND PRECEDEX 0.3 MCG/KG/HR. PT FEBRILE WITH TEMP 99.5. VSS. VHP @ GOAL 25 ML/HR, 30 ML Q4H FLUSH. TEMP TERESA PATENT AND DRAINING. BILATERAL UPPER SOFT WRIST RESTRAINTS IN PLACE TO PREVENT ACCIDENTAL SELF-EXTUBATION. PT'S AT BEDSIDE, UPDATED WITH PLAN OF CARE AND POSSIBLE EXTUBATION TOMORROW. SEE FULL SHIFT SUMMARY.
[2019-07-29 04:02] LABS: BASOPHILS PERCENT AUTO 0 % (0-2); EOSINOPHILS PERCENT AUTO 0 % (0-6); Hematocrit 36.9 % (33.0-51.0); Hemoglobin 11.8 g/dL (11.5-16.0); IMMATURE GRAN PERCENT AUTO 0 % (0-1); LYMPHOCYTES ABSOLUTE AUTO 0.22 K/mm3 (0.84-5.20); LYMPHOCYTES PERCENT AUTO 9 % (21-46); MONOCYTES ABSOLUTE AUTO 0.09 K/mm3 (0.16-1.47); MONOCYTES PERCENT AUTO 4 % (4-13); Mean Corpuscular HGB 28.2 pg (26.0-34.0); Mean Corpuscular Volume 88 fL (80-100); Mean Platelet Volume 10.5 fL (9.1-12.4); NEUTROPHILS ABSOLUTE AUTO 2.03 K/mm3 (1.96-9.15); NEUTROPHILS PERCENT AUTO 87 % (41-73); Platelet Count 170 K/mm3 (150-400); RDW Coefficient Variation 16.2 % (11.7-14.2); RDW Standard Deviation 52.5 fL (35.1-46.3); Red Blood Cell Count 4.19 M/mm3 (3.80-5.20); White Blood Cell Count 2.34 K/mm3 (4.00-11.30)
[2019-07-29 04:22] LABS: Anion Gap 5 mmol/L (6-16); Blood Urea Nitrogen 24 mg/dL (8-24); Bun/Creatinine Ratio 47.7 (12.0-20.0); CO2, Blood 32 mmol/L (21-32); Calcium, Blood 8.1 mg/dL (8.5-10.1); Chloride, Blood 101 mmol/L (98-108); Glomerular Filtration Rate >60 (60-); Glucose, Blood 140 mg/dL (70-99); Magnesium, Blood 2.1 mg/dL (1.6-2.4); Phosphorus, Blood 3.9 mg/dL (2.5-4.9); Potassium, Blood 3.9 mmol/L (3.5-5.5); Sodium, Blood 138 mmol/L (136-145)
[2019-07-29 05:33] LABS: PCO2 Arterial 48.2 mmHg (35-45); PO2 Arterial 72.1 mmHg (80-100); pH Blood Arterial 7.45 (7.35-7.45)
--- NOTE | 2019-07-29 06:03 | NUR ---
SHIFT SUMMARY PT REMAINS INTUBATED WITH VENT SETTINGS AC 16/350/5/30%, FIO2 INCREASED TO 35% FOR MOST OF THE NIGHT TO MAINTAIN SATS>90%. PT SEDATED WITH PRECEDEX 0.7 MCG/KG/HR AND PROPOFOL 45 MCG/KG/MIN. PT AROUSES EASILY AND QUICKLY BECOMES AGITATED THRASHING HEAD BACK AND FORTH AND BITING ETT. PT ATTEMPTS TO COMMUNICATE WITH NURSING STAFF BY WRITING WITH PEN ON PAPER. WRITING IS ILLEGIBLE AND PT FRUSTRATED. PT TOLERATING TF WELL WITH MINIMAL RESIDUALS NOTED. 300 ML URINARY OUTPUT. TMAX 99.5, ALL OTHER VSS. WILL REPORT TO DAYSHIFT NURSE.
--- NOTE | 2019-07-29 09:30 | NUR ---
ASSUMED CARE: REPORT RECEIVED FROM DARVIN Ayala RN. ASSUMED CARE OF THIS PT AT APPROX 0700. ON ASSESSMENT, THE PT IS INTUBATED & SEDATED, APPEARS COMFORTABLE BUT AWAKENS EASILY & BECOMES QUICKLY AGITATED. TITRATION OF SEDATION IN FLOWSHEET. LS ARE CLEAR, VENT SETTINGS: AC 16/350/5/35%. O2 SATS > 92% ON AVG, OCCASIONAL DESATS W/ INCREASED ANXIETY. MONITOR SHOWS SR W/ HR 70s, BP STABLE. OGT W/ CONTINUOUS TUBE FEEDS AT GOAL RATE, LOW RESIDUALS. TERESA PATENT/ DRAINING DARK YELLOW URINE W/ GREEN TINT. SKIN OVERALL CDI, FACIAL & NECK SWELLING IMPROVED PER REPORT. WILL CONTINUE TO MONITOR & UPDATE NEEDED.
--- NOTE | 2019-07-29 10:34 | NUR ---
DR SZYMANSKI: PROVIDER AT BEDSIDE TO EVAL PT. WOULD LIKE SEDATION VIA PROPOFOL & PRECEDEX TO BE STOPPED NOW W/ ANTICIPATION OF EXTUBATION ON DR EDWARD's ASSESSMENT OF THE PT. PROPOFOL & PRECEDEX STOPPED AT 1015 & PT NOW WIDE AWAKE, FOLLOWING COMMANDS & ATTEMPTING TO COMMUNICATE VIA NOTEPAD & PEN. DR SZYMANSKI STS OKAY TO RESTART PRECEDEX IF PT BECOMES TOO ANXIOUS. WILL CONTINUE TO MONITOR & UPDATE NEEDED.
--- NOTE | 2019-07-29 11:05 | NUR ---
TUBE FEEDS: PLACED ON HOLD FOR POSSIBLE EXTUBATION AT APPROX 1200.
--- NOTE | 2019-07-29 12:51 | NUR ---
BRONCH / EXTUBATION / UPDATE: DR EDWARD AT BEDSIDE TO COMPLETE BRONCHOSCOPY TO EVALUATE SWELLING OF PT's AIRWAY. DR SZYMANSKI ALSO AT BEDSIDE DURING THIS TIME. DECISION MADE BY PROVIDERS TO EXTUBATE PT, ETT REMOVED AT 1225. BILAT SOFT WRIST RESTRAINTS ALSO REMOVED AT THAT TIME. PT PLACE ON 3L NC IMMEDIATELY AFTER EXTUBATION W/ O2 SATS > 92%, TITRATED DOWN TO 2L NC CURRENTLY. PT TOLERATING WELL & RESP E/U. AFTER PT's "" LEAVES THE ROOM, SHE INFORMS THIS RN THAT HE IS ACTUALLY "JUST A BOYFRIEND" & THAT SHE WOULD LIKE HIM TO HAVE NO LEGAL STANDING IN HER CODE STATUS. SHE WISHES TO "NEVER BE SEDATED OR INTUBATED AGAIN" & STS, "WHEN IT's MY TIME TO GO, I JUST WANT TO GO." COLTON S, PALLIATIVE CARE, NOTIFIED OF THIS CONVERSATION & IS CURRENTLY AT BEDSIDE TO DISCUSS CODE STATUS OPTIONS W/ PT. DR SZYMANSKI HAS ALSO BEEN MADE AWARE OF THIS. WILL CONTINUE TO MONITOR & UPDATE NEEDED.
--- NOTE | 2019-07-29 15:15 | NUR ---
DNR STATUS: COLTON S, PALLIATIVE CARE, AT BEDSIDE & HAS DISCUSSED OPTIONS FOR CODE STATUS W/ PT. POLST HAS BEEN FILLED OUT & COPY PLACED IN CHART, ORIGINAL & EXTRA COPIES HAVE BEEN GIVEN TO PT. DR SZYMANSKI AWARE & ORDERS HAVE BEEN UPDATED TO REFLECT DNR STATUS. PURPLE DNR WRIST IN PLACE TO R WRIST, VERIFIED ORDER W/ SULMA Beltran RN.
--- NOTE | 2019-07-29 18:14 | NUR ---
Inital spiritual care note: Tiarra was talkative. She spoke at length about her multiple illnesses and her life-long struggles with surgeries, cancer treatments, hospitalizations, chronic and debilitating illnesses. She tells me she watched her mom "suffer" through intubation, "and she didn't want that." She states, "I have now been intubated four times. I never want to be intubated again!" Tiarra is not afraid of . In fact, she admits to moments of wishing "God would just take me." She lives with a SO, who she says "panicked and called 911." I listened to long life-review. LILLIANA completed. Friend, Sandra Gates, present and named as "emergency contact." LILLIANA signed by physician and I hand-carried document to Medical Records. Tiarra was oftern tearful throughout conversation. She has a strong dee and is not afraid of . Numerous prayers were provided at bedside throughout the day. We have an easy rapport. Tiarra was appreciaitve of prayer and gentle agency legal counsel. I will remain available.
--- NOTE | 2019-07-29 18:21 | NUR ---
SHIFT SUMMARY: NO ACUTE CHANGES SINCE PRIOR UPDATES. PT REMAINS A&O, PLEASANT & COOPERATIVE. SPEAKING LOUDER NOW BUT MOSTLY STILL IN HUSHED TONES. SHE HAS WORKED WELL W/ PHYSICAL & OCCUPATIONAL THERAPIES THIS AFTERNOON & IS SITTING UP IN CHAIR FOR DINNER AT THIS TIME. LS REMAIN CLEAR, OCCASIONAL PRODUCTIVE COUGH. PT ON 1L NC W/ O2 SATS > 92%. MONITOR SHOWS SR W/ HR 70-90s, BP STABLE. PT HAS GOOD APPETITE & IS TOLERATING PO INTAKE WELL W/ NO NAUSEA. SHE IS REMINDED TO CHEW FOOD THOROUGHLY THERE IS STILL SOME AIRWAY SWELLING PRESENT NOTED IN BRONCH EARLIER THIS SHIFT. SHE IS AGREEABLE & SWALLOWING FOOD W/O DIFFICULTY. TERESA REMAINS PATENT/ DRAINING DARK YELLOW-GREEN URINE. SKIN OVERALL CDI. WILL CONTINUE TO MONITOR & REPORT OFF TO ONCOMING RN.
--- NOTE | 2019-07-29 19:20 | NUR ---
ASSUME CARE: BEDSIDE REPORT RECIEVED FROM GONZALEZ OFF GOING RN. UP IN CHAIR VISITING WITH VISITORS. MONITOR INTACT SHOWING SINUS RHYTHM HEART RATE 90'S. RESPIRATIONS REGULAR AND EASY WITH O2 IN PLACE AT 1L/MIN SPPO2 GREATER THAN 90. LUNG SOUNDS CLEAR WITH SLIGHTLY DECREASED BASES. ABDOMEN SOFT WITH BOWEL SOUNDS FOUR QUADS. TERESA PATENT DRAINING ANNEL/GREENISH URINE. CONTINUE TO MONITOR AND REPORT CHANGE IN PATIENT CONDITION REQUEST SNACKS OF PUDDING AND APPLESAUCE TOLERATES WELL. PERFERS TO DRINK SIERRIA MIST.
--- NOTE | 2019-07-29 20:15 | NUR ---
ASSIST BACK TO BED. TOLERATES WELL. CONTINUE TO MONITOR AND REPORT CHANGE IN PATIENT CONDITION.
[2019-07-30 04:07] LABS: HIV SCREEN 4TH GENERATION WRFX Non Reactive (Non Reactive)
--- NOTE | 2019-07-30 04:50 | NUR ---
STANDING AT SIDE OF BED . OFF MONITOR PT REMOVED EKG PATCHES VERY AGITATED AGUREING WITH SPOUSE. WANTING :TO GO OUT AND HAVE A SMOKE" BECOMESS INCREASINGLY AGITATED AND AGRUMENTITVE WITH STAFF, CURSING AND DEMANDING TO SPEAK "WITH YOUR BOSS AND YOUR BOSSES BOSS." Debo HERZOG EVENT AV OPERATOR NOTIFIED, EXPLAINED NUMEROUS TIMES THAT HE WAS IN THE ICU AND WAS NOT ALLOWED TO LEAVE UNLESS HE CHOSE TO GO AMA, UNABLE TO UNDERSTAND OR REASON, SECURITY NOTIFIED. DEMANDING TO "SPEAK WITH A mAN" SECURITY TO ROOM. CONTINUES TO BECOME INCREASINGLY AGITATED. STEPS OUT OF ROOM. PT AGREES TO TAKE MEDICATION TO " HELP CALM DOWN," MEDICATED WITH LIBRUIUM 50MG PO, AGREES TO SIT ON BED AND ALLOW MONITOR TO BE CONNECTED. AT 0535 SEIZURE NOTED TONIC CLONIC. MAINTAINS AIRWAY SEIZURE LASTED UNTIL ATIVEN 3MGIV ADMINISTERED AT 0540. REMAINS RIGID WITH PUPILS DEVIATING TO RIGHT. BECOMING MORE ALERT LESS AGITATED. "WHAT HAPPENED" " AM I GOING TO " SOFT SPOKEN AND COOPERATIVE, AT BEDSIDE. REASSURANCE AND SUPPORT OFFERED. SEE CIWA SHEET. CONTINUE TO MONITOR AND REPORT CHANGE IN PATIENT CONDITION.
[2019-07-30 05:00] LABS: BASOPHILS PERCENT AUTO 0 % (0-2); EOSINOPHILS PERCENT AUTO 0 % (0-6); Hematocrit 33.9 % (33.0-51.0); Hemoglobin 10.8 g/dL (11.5-16.0); IMMATURE GRAN ABSOLUTE AUTO 0.01 K/mm3 (0.00-0.10); IMMATURE GRAN PERCENT AUTO 0 % (0-1); LYMPHOCYTES ABSOLUTE AUTO 0.36 K/mm3 (0.84-5.20); LYMPHOCYTES PERCENT AUTO 9 % (21-46); MONOCYTES ABSOLUTE AUTO 0.21 K/mm3 (0.16-1.47); MONOCYTES PERCENT AUTO 5 % (4-13); Mean Corpuscular HGB 28.1 pg (26.0-34.0); Mean Corpuscular HGB Conc 31.9 g/dL (31.5-36.5); Mean Corpuscular Volume 88 fL (80-100); Mean Platelet Volume 10.9 fL (9.1-12.4); NEUTROPHILS ABSOLUTE AUTO 3.55 K/mm3 (1.96-9.15); NEUTROPHILS PERCENT AUTO 86 % (41-73); Platelet Count 184 K/mm3 (150-400); RDW Coefficient Variation 16.1 % (11.7-14.2); RDW Standard Deviation 52.3 fL (35.1-46.3); Red Blood Cell Count 3.85 M/mm3 (3.80-5.20); White Blood Cell Count 4.13 K/mm3 (4.00-11.30)
[2019-07-30 05:16] LABS: Anion Gap 7 mmol/L (6-16); Blood Urea Nitrogen 24 mg/dL (8-24); Bun/Creatinine Ratio 50.3 (12.0-20.0); CO2, Blood 28 mmol/L (21-32); Chloride, Blood 103 mmol/L (98-108); Creatinine, Blood 0.48 mg/dL (0.40-1.00); Glomerular Filtration Rate >60 (60-); Glucose, Blood 162 mg/dL (70-99); Magnesium, Blood 1.9 mg/dL (1.6-2.4); Phosphorus, Blood 2.3 mg/dL (2.5-4.9); Potassium, Blood 3.8 mmol/L (3.5-5.5); Sodium, Blood 138 mmol/L (136-145)
--- NOTE | 2019-07-30 06:30 | NUR ---
SHIFT SUMMARY:RESTSQUIETLY WHEN UNDISTURBED.MONITOR INTACT SINUS TACH SINUS RHYTH, HEART RATE 90'S-100'S. LUNGSOUND CLEAR UPPER LOBES WITH DICREASED COARSE SOUNDS IN THE BASES HAS WORN CPAP DURINT NOC 24/03 BACKUP RATE 12 AND 24% FIO2. RESPIRATIONS 20-26. SPO2 93-96%. ABDOMEN SOFT WITH BOWEL SOUNDS FOUR QUADS. TERESA PATENT DRAINING GREENISH ANNEL URINE. DE [place] ROSA WELL WHEN AWAKE O2 INPLACE AT 1 L/MIN PER NASAL CANNULA. SKIN FRAGILE HOWEVER DRY INTACT. CONTINUE TO MONITOR AND REPORT CHANGE IN PATIENT CONDITON, GIID APPITATE TOLERATE VARIOUS SNACKS DURING NOC
--- NOTE | 2019-07-30 06:32 | NUR ---
TONIC CLONIC SEIZURE NOTED JERKING OF EXTREMITIES. MAINTAINS AIRWAY SEIZURE LASTING APPROX TWO MINUTES.
--- NOTE | 2019-07-30 09:45 | NUR ---
PT OBSERVED EXPERIERNCING SEIZURE-LIKE ACTIVITY WHILE IN BED. PT PUMPING BOTH LEGS WITH ARMS FOLDED ACROSS HIS CHEST. HR ELEVATED TO 114, O2 SAT 93-95% ON RA. NO EMESIS OR ASPIRATION NOTED. SEIZURE-LIKE ACTIVITY LASTED ABOUT 4 MINUTES. AFTERWARD. PT SAT BOLT UPRIGHT, CONFUSED, WITH AT BEDSIDE TO HELP CALM HIM. LORAZEPAM GIVEN PER EMAR; PT REMAINED SLIGHTLY ANXIOUS.
--- NOTE | 2019-07-30 15:20 | NUR ---
AFTER FALL, PT APPEARED TO HAVE SEIZURE-LIKE ACTIVTY AGAIN ONCE BACK IN BED, SAME SXS PREVIOUSLY NOTED. VSS DURING SEIZURE, NO EMESIS OR ASPIRATION NOTED. SEIZURE LASTED ~ 4 MINUTES. ATIVAN 3 MG IV GIVEN. SXS RESOLVED, PT RESTING IN BED.
--- NOTE | 2019-07-30 18:23 | NUR ---
SHIFT SUMMARY: A&O X 3, IN GOOD SPIRITS. STATUS CHANGED TO MEDICAL WITH TELE. SINUS RHYTHM, HR 70-80'S. PAIN WELL MANAGED WITH CURRENT REGIMEN. WAS UP IN CHAIR ENTIRE SHIFT, TOLERATED WELL. TERESA DRAINING ADEQUATE URINE. GOOD PO INTAKE. O2 SAT > 92% ON 1 L/MIN NC WHILE AWAKE. IS LOOKING FORWARD TO GOING HOME.
--- NOTE | 2019-07-30 18:38 | NUR ---
Provided prayer and encouragement to Tiarra. She appears to be feeling much improved over yesterday. She is grateful for prayer and spiritual compliance counsel. [employer] services will remain available.
--- NOTE | 2019-07-30 19:30 | NUR ---
PT RESTING IN BED. C/O PAIN IN BACK. SCHEDULED PAIN MEDS GIVEN. NO SIGN OF DISTRESS. NO REQUEST.
[2019-07-31 05:00] LABS: Anion Gap 4 mmol/L (6-16); Blood Urea Nitrogen 15 mg/dL (8-24); Bun/Creatinine Ratio 40.8 (12.0-20.0); CO2, Blood 32 mmol/L (21-32); Calcium, Blood 8.4 mg/dL (8.5-10.1); Chloride, Blood 103 mmol/L (98-108); Creatinine, Blood 0.37 mg/dL (0.40-1.00); Glomerular Filtration Rate >60 (60-); Glucose, Blood 97 mg/dL (70-99); Magnesium, Blood 1.8 mg/dL (1.6-2.4); Phosphorus, Blood 2.5 mg/dL (2.5-4.9); Potassium, Blood 3.6 mmol/L (3.5-5.5); Sodium, Blood 139 mmol/L (136-145)
--- NOTE | 2019-07-31 06:10 | NUR ---
PT DID WELL OVER NIGHT. DID NOT SLEEP MUCH. ONLY ON 1L NC. STILL HAS HOARSE VOICE. ABLE TO EAT AND DRINK WITHOUT ISSUE. NO SIGN OF DISTRESS. PT IS LOOKING FORWARD TO GOING HOME SOON.
[2019-07-31] MEDS ORDERED: Nicoderm Cq1 EAC1 TOP (10:28)
[2019-07-31] MEDS ORDERED: PRED10 PO (10:30)
--- NOTE | 2019-07-31 11:26 | NUR ---
PT DISCHARGE PT DISCHARGED HOME WITH PRENISONE ORDERS AND PT STATING "SHE IS NOT ALLERGIC TO PREDNISONE". ALL BELONGINGS WITH PT AND HOME VIA PERSONAL W/C AND O2
== END 2019-07-31 11:28 | disposition home or self-care (01) | DRG 208 ==
LOC: ER 07:42 → ICUW 11:17 → ICUE 11:17
PROVIDERS: Emergency Medicine; Internal Medicine Critical Care Medicine; Internal Medicine Pulmonary Disease; Nurse Practitioner Acute Care; ADMIT Internal Medicine
PROC: 5A1945Z Respiratory Ventilation, 24-96 Consecutive Hours (ICD-10-PCS; 2019-07-26)
PROC: 0BH18EZ Insertion of Endotracheal Airway into Trachea, Via Natural or Artificial Opening Endoscopic (ICD-10-PCS; 2019-07-26)
PROC: 0DH67UZ Insertion of Feeding Device into Stomach, Via Natural or Artificial Opening (ICD-10-PCS; 2019-07-26)
PROC: 0DH67UZ Insertion of Feeding Device into Stomach, Via Natural or Artificial Opening (ICD-10-PCS; 2019-07-27)
PROC: 0CJS8ZZ Inspection of Larynx, Via Natural or Artificial Opening Endoscopic (ICD-10-PCS; 2019-07-27)
PROC: 5A09357 Assistance with Respiratory Ventilation, Less than 24 Consecutive Hours, Continuous Positive Airway Pressure (ICD-10-PCS; principal; 2019-07-30)
DX: J96.22 Acute and chronic respiratory failure with hypercapnia (principal); G92 Toxic encephalopathy; R64 Cachexia; Z68.1 Body mass index [BMI] 19.9 or less, adult; J44.9 Chronic obstructive pulmonary disease, unspecified; Q05.9 Spina bifida, unspecified; Z79.891 Long term (current) use of opiate analgesic; G89.4 Chronic pain syndrome; K21.9 Gastro-esophageal reflux disease without esophagitis; F32.9 Major depressive disorder, single episode, unspecified; G47.33 Obstructive sleep apnea (adult) (pediatric); N31.9 Neuromuscular dysfunction of bladder, unspecified; J38.4 Edema of larynx; Z85.819 Personal history of malignant neoplasm of unspecified site of lip, oral cavity, and pharynx; Z92.3 Personal history of irradiation; Z66 Do not resuscitate
CPT/HCPCS: 0099U; 31500; 31720; 36415; 36600; 51702; 70490; 71045; 80048; 80053; 81003; 82550; 82803; 82947; 83735; 83880; 84100; 84145; 84439; 84443; 85025; 87070; 87205; 87389; 93005; 93010; 93306; 94002; 94003; 94640; 94644; 94660; 96365-59; 96375-59; 97110; 97116; 97162; 97166; 97535; 99291-25; 99292; C1751; C9113; J0330; J1200; J1650; J2060; J2405; J2543; J2704; J2930; J3010; J7050

== ENCOUNTER 2019-08-20 01:20 | Inpatient (IN) | payer MEDICARE, OTHER ==
[~2019-08-20] VITALS: Ht 142.2 cm; Wt 39.3 kg
[~2019-08-20 01:20] MED LIST changes: +ALBU90OI; +CLIMARA1 EACH PO; +MIRALAX17 GM; +NORT25 PO; +Nexium40 MG PO; +Nicoderm Cq1 EAC1 TOP; +TIOT18
[2019-08-20 02:10] LABS: BASOPHILS ABSOLUTE AUTO 0.07 K/mm3 (0.00-0.23); BASOPHILS PERCENT AUTO 1 % (0-2); EOSINOPHILS ABSOLUTE AUTO 0.12 K/mm3 (0.00-0.68); EOSINOPHILS PERCENT AUTO 1 % (0-6); Hematocrit 33.7 % (33.0-51.0); Hemoglobin 10.5 g/dL (11.5-16.0); IMMATURE GRAN ABSOLUTE AUTO 0.05 K/mm3 (0.00-0.10); IMMATURE GRAN PERCENT AUTO 0 % (0-1); LYMPHOCYTES ABSOLUTE AUTO 1.04 K/mm3 (0.84-5.20); LYMPHOCYTES PERCENT AUTO 8 % (21-46); MONOCYTES ABSOLUTE AUTO 0.71 K/mm3 (0.16-1.47); MONOCYTES PERCENT AUTO 6 % (4-13); Mean Corpuscular HGB 28.2 pg (26.0-34.0); Mean Corpuscular HGB Conc 31.2 g/dL (31.5-36.5); Mean Corpuscular Volume 90 fL (80-100); Mean Platelet Volume 10.3 fL (9.1-12.4); NEUTROPHILS ABSOLUTE AUTO 10.51 K/mm3 (1.96-9.15); NEUTROPHILS PERCENT AUTO 84 % (41-73); Platelet Count 281 K/mm3 (150-400); RDW Coefficient Variation 14.7 % (11.7-14.2); RDW Standard Deviation 48.4 fL (35.1-46.3); Red Blood Cell Count 3.73 M/mm3 (3.80-5.20)
[2019-08-20 02:15] LABS: Alanine Aminotransfer (ALT/SGP 24 U/L (12-78); Albumin, Blood 2.6 g/dL (3.4-5.0); Albumin/Globulin Ratio 0.7 (0.8-1.8); Alk Phos 137 U/L (50-136); Anion Gap 5 mmol/L (6-16); Aspartate Aminotrans (AST/SGOT 40 U/L (12-37); Bilirubin, Total 0.2 mg/dL (0.1-1.0); Blood Urea Nitrogen 20 mg/dL (8-24); Bun/Creatinine Ratio 29.5 (12.0-20.0); CO2, Blood 32 mmol/L (21-32); Calcium, Blood 7.9 mg/dL (8.5-10.1); Chloride, Blood 96 mmol/L (98-108); Creatinine, Blood 0.68 mg/dL (0.40-1.00); Globulin, Blood 3.9 g/dL (2.2-4.0); Glomerular Filtration Rate >60 (60-); Glucose, Blood 153 mg/dL (70-99); Magnesium, Blood 1.6 mg/dL (1.6-2.4); Potassium, Blood 3.6 mmol/L (3.5-5.5); Sodium, Blood 133 mmol/L (136-145); Total Protein, Blood 6.5 g/dL (6.4-8.2)
--- NOTE | 2019-08-20 04:45 | NUR ---
PATIENT ARRIVED TO ICU 2 VIA GURNEY FROM ED WITH DX OF THROAT SWELLING. BIPAP IN PLACE SET AT 14/6 FIO2 35% WITH RT AT BEDSIDE. PATIENT TRANSFERRED TO BED USING SLIDER SHEET AND PLACED ON ICU MONITORS. PATIENT A&O X3 COOPERATIVE WITH CARE. C/O DRY MOUTH AND THROAT. PATIENTS VOICE HORSE AND SPEAKING SOFTLY, PATIENT VERBALIZED THAT DUE TO HX OF THROAT CANCER WITH LAST RADIATION JUL 08, 2018 SHE HAS HAD A HORSE VOICE AND OCCASIONAL DIFFICULTY SWALLOWING DRY FOOD. PATIENT HAS STRONG MOIST COUGH WITH THICK YELLOW SPUTUM SPEC SENT TO LAB. LUNG SOUNDS CONTINUE TO HAVE COARSE WHEEZES T/O. WHEN OFF BIPAP PATIENT ON 4L/NC DURING ADMIT HX, PATIENT KATIE WELL. PATIENT USES 2L/NC AT HOME. PATIENT HAS HX OF SPINA BIFIDA WITH MULTIPLE BACK SURGERIES AND ATTEMPT WITH NERVE REPAIR, BUT BOTH OF HER LEGS AND WEAK AND HAVE SEVERE NERVE PAIN AND NUMBNESS. AT BASELINE PATIENT VERBALIZED THAT SHE IS ABLE TO TRANSFER SELF FROM BED TO CHAIR, AND ON CARPETED FLOOR CAN TAKE FEW STEPS WITH A WALKER. BOTH LEGS AND FEET COLD TO TOUCH AND SLIGHTLY DUSKY, BUT WITH 2+ PULSES. PATIENT VERBALIZED THAT THIS IS NORMAL HER.
--- NOTE | 2019-08-20 06:00 | NUR ---
DURING ADMIT HX PATIENT BECOMING TEARFUL AND VERBALIZED THAT SHE IS AFRAID AND THAT SHE DOES NOT WANT TO BE INTUBATED AGAIN, BUT THAT SHE DOES NOT WANT TO . I EXPLAINED TO HER THAT AT THIS TIME SHE IS DOING WELL WITH THE BIPAP. I EXPLAINED TO HER THAT SHE SHOULD HAVE A CONVERSATION WITH BOTH HER AND HER DOCTOR TO MAKE THE DECISION REGARDING INTUBATION.
--- NOTE | 2019-08-20 07:00 | NUR ---
IV TO HER RIGHT FA INFILTRATED, SEVERAL ATTEMPTS TO PLACE IV WITH NO SUCCESS. REPORT GIVEN TO ON COMING NURSE AND THEY WILL CONTINUE TO OBTAIN IV ACCESS. WHEN SLEEPING WITH BIPAP OFF PATIENT HAS A STRIDER TYPE SOUND WITH RESPIRATIONS, BIPAP REPLACED FOR SLEEP. PATIENT USES BIPAP FOR SLEEP AT HOME ALSO AND KATIE WELL.
--- NOTE | 2019-08-20 08:22 | NUR ---
ASSUMED CARE RECIEVED REPORT FROM DEBBIE FONTANEZ. PT IS CURRENTLY LYING IN BED WITH 2L NC - SAT'ING 98% AND DENIES SOB. HER ONLY COMPLAINT IS LOWER BODY PAIN THAT IS HER BASELINE, SHE HASN'T TAKEN HER OXY'S THAT SHE TAKES AT HOME. SHE IS ALERT AND ORIENTED TO SELF, SITUATION, PLACE AND TIME. SHE HAS BEEN REFUSING CARE. SHE CURRENTLY IS REFUSING VTE (SCDs AND LOVENOX) WHICH SHE HAS BEEN EDUCATED ABOUT. BED IS LOW AND LOCKED. CALL LIGHT WITHIN REACH.
--- NOTE | 2019-08-20 12:22 | NUR ---
UPDATE PT HAS HAD MULTIPLE STICKS FOR IV PLACEMENT BUT NONE HAVE BEEN SUCCESSFUL BY MULTIPLE NURSES. NO NURSE HAS HAD TIME TODAY TO DO MIDLINE OR PICC. PT DID NOT RECEIVE IV ANTIBIOTIC, SOLU MEDROL AND PEPCID TODAY AND WILL NOT UNTIL WE CAN GET A NURSE WHO CAN DO IT. PT IS NOW PCU STATUS, FROM A RESPIRATORY STANDPOINT SHE LOOKS GOOD, GOOD SATS ON 2-4LNC, STATES SHE DOESN'T FEEL SOB AND WANTS TO BE TITRATED DOWN ON OXYGEN. I HAD LOCKED THE MORNING PEPCID IN THE MED CABINET, BUT WILL NOW WASTE BECAUSE SHE DOESN'T APPEAR TO BE GETTING AN IV SOON. WITH THE MORNING MEDS I HAD HER SIT UP RIGHT 90 DEGREES, AND STARTED WITH ICE CHIPS - WHICH SHE SWALLOWED WITH EASE, NO COUGH, NO CHANGED VOICE, AND NO DISTRESS. I THEN HAD HER DRINK A LITTLE BIT OF WATER, WHICH SHE DID FINE, SO SHE COULD TAKE HER PO MEDS. I THEN TOOK THE WATER AWAY.
--- NOTE | 2019-08-20 18:27 | NUR ---
SHIFT SUMMARY PT IMPROVED THROUGHOUT THE DAY. SHE DENIES SOB, AND HAS BEEN ON 2-4 NC ALL DAY (NO BIPAP SINCE EARLY THIS MORNING), CURRENTLY ON 2L. SATS HAVE BEEN 93-98%. SHE HAD PREVIOUSLY BEEN CONSTIPATED FOR 9 DAYS SHE SAID, BUT HAD A LARGE, FORMED BOWEL MOVEMENT (NO SIGNS OF BLEEDING). SHE HAS STRAIGHT CATH'ED HERSELF SEVERAL TIMES TODAY USING THE 14 FR CATHETERS. VITALS MEDINA SHE HAS HAD GREAT BP'S, HR 90'S TO 110, AND HAS BEEN AFEBRILE. HER RESPIRATORY RATE HAS BEEN FINE. SHE HAS BEEN PCU STATUS TODAY AND DR EDWARD CAME IN AND DID AN UPPER AIRWAY BRONCH. SHE HAS BEEN CLEARED FROM AN AIRWAY POINT OF VIEW PER DR EDWARD. SEE LAST NOTE - BUT SHE WAS FINALLY ABLE TO GET IV ACCESS, WHICH WAS DONE BY WADE LEWIS - AND WAS A POWERGLIDE TO THE UPPER LEFT ARM. SHE RECIEVED A DOSE OF ZOSYN, GOT HER SOLUMEDROL, AND PEPCID. SHE IS VERY PARTICULAR ABOUT THINGS AND HAS A GENERAL DISTRUST IN THE HEALTHCARE SYSTEM OVER MANY YEARS OF NEEDING IT. MANY DIFFERENT MEDICATIONS, AND ALLERGIES TO A GOOD AMOUNT, INCLUDING A HOSPITALIZATION AND INTUBATION FROM ANGIOEDEMA WHICH SHE BELIEVES WAS FROM THE [facility]. SHE ALSO HAS ATTRIBUTED HER CHRONIC PAIN/OPIATE ADDICTION TO BEING TREATED BY A PAIN SPECIALIST WHO USED EXCESSIVE AMMOUNTS OF OPIATES TO TREAT HER CHORNIC PAIN. SO SHE REFUSES THINGS, IS RESISTANT TO TRYING NEW MEDS OR TREATMENTS. SHE REFUSES LOVENOX - I HAVE EDUCATED HER ABOUT BLOOD CLOTS - WE DECIDED THAT SHE WILL PUT ON SCDs WHEN SHE GOES TO BED TONIGHT. I HAVE CONFIRMED WITH HER WHAT IT MEANS TO BE A DNR/DNI. SHE HAS A POLST FORM IN THE CHART, AND HAS AN ORDER FOR DNR. SHE IS VERY SCARED ABOUT BEING INTUBATED AND HAS REPEATEDLY ASKED ME ABOUT IT. I HAVE ASSURED HER THAT WE WILL FOLLOW HER WISHES AND NOT INTUBATE IF WE WERE INCLINED TO DO SO. BED IS LOW AND LOCK. CALL LIGHT WITHIN REACH.
--- NOTE | 2019-08-20 18:40 | NUR ---
SOLU MEDROL DUE TO LATE IV ACCESS, 1200 SOLU MEDROL DOSE WAS GIVEN AT ~1600. THE NEXT DOSE IS SCHEDULED FOR 1800, WHICH SHOULD BE GIVEN LATER, MAYBE AROUND 2000. WILL INFORM WEB SIZER NURSE.
--- NOTE | 2019-08-20 18:59 | NUR ---
Inital spiritual care note: Tiarra and I met on her last admission. We have an easy rapport and she is appreciaitve of being heard and affirmed. Her family disagrees with her desire to be DNR/DNI--especially her SO, Hermilo. This is concerning to her, but she remains unmoved in her desire to maintain this status. She has fought many physical battles and credits her innate strength and dee for bringing her through. She says her reason for living is now being with her grandkids. Tiarra is very talkative and animated. She respnded well to family and marriage counsellor and prayer. I will remain available.
--- NOTE | 2019-08-20 20:36 | NUR ---
REPORT CALLED TO ESTEE LEWIS FOR PT TRANSFERRING TO PCU 16. PT WITH VERBAL UNDERSTANDING OF TRANSFER. PT WAS ASSISTED UP TO BESIDE COMMODE FOR SELF CATH. PT TOLERATED WELL. PT TRANSFERRED VIA BED.
--- NOTE | 2019-08-20 21:12 | NUR ---
ASSUMED CARE APPROXIMATELY 2039; PT A&O; ARTIE SHE STATES DUE TO ALL HER RECENT MEDICAL NEEDS; STATES SHE HAS CHRONIC PAIN; MEDICATE PER EMAR; WARM BLANKET BROUGHT TO PT FOR COMFORT; 02 SATS >93 ON 3L NC; VSS; DENIES CHEST PAIN; CALL LIGHT IN REACH; BED IN LOWEST POSITION
--- NOTE | 2019-08-21 07:40 | NUR ---
SHIFT SUMMARY PT A&O; SBA TO BSC; PT SELF CATH W/ 16F; SPOUSE TO BRING HER OWN SUPPLIES THIS AM; [facility] 16 WORKS WELL; PT USES PUDDING FOR PO MEDS ONE AT A TIME; NO ISSUES; DENIES CHEST PAIN; SLEPT SEVERAL HOURS IN BETWEEN INTERVENTIONS; HEATING PAD BROUGHT TO PT FOR COMFORT MEASURES; CALL LIGHT IN REACH; BED IN LOWEST POSITION; REPORT GIVEN TO DAY SHIFT RN.
--- NOTE | 2019-08-21 07:45 | NUR ---
AM NOTE... ASSUMED CARE OF PT APROX 0700. PT IS A&Ox4 AND SBA/IND IN THE ROOM. VSS. PT DENIES CHEST PAIN/PRESSURE, N/V OR INCREASED SOB. PT IS ON 3L NC AND HASN NOT USED THE BIPAP. PT'S L/S COARSE RHONCHI AND SCATTERED EXP WHEEZES T/O. NO EDEMA IS NOTED ON ASSESSMENT. BT PRESENT AND NORMOACTIVE. ABD IS SOFT AND NONTENDER TOPALP. CALL LIGHT IN REACH WILL CONTINUE TO MONITOR.
--- NOTE | 2019-08-21 08:25 | NUR ---
met with pt this morning to help pass meds. pt agree to have nursing unit manager work with her for the day.
--- NOTE | 2019-08-21 09:19 | NUR ---
Spoke with healthcare receptionist at Dr. Maldonado's office. States that his consultation note from 08/20/2019 should be submitted shortly electronically.
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
--- NOTE | 2019-08-21 18:31 | NUR ---
SHIFT SUMMARY... NO ACUTE NEGATIVE CHANGES NOTED THIS SHIFT. PT HAS BECOME VERBALLY AGRESSIVE WITH STAFF TO THE POINT OF CALLING THE NURSING MEDICAL SECRETARY TEACHER AND SECURITY. PT BECAME UPSET WHEN SHE WAS TOLD BY THIS RN THAT SHE HAD MRSA IN HER SPUTUM AND DEMANDED TO GO DOWN TO MEDICAL RECORDS TO SEE WHEN THE LAST TIME SHE HAD MRSA. PT BECAME BELLIGERENT TO THIS RN AND OTHER STAFF, SHE SAT ON THE FLOOR IN THE ROOM, PULLED HER TELE AND PULSE OX OFF AND SCOOTED HERSELF INTO THE WHITE WAY. PT WAS DEMANDING A W/C SO SHE COULD GO TO MEDICAL RECORDS AND SHE WAS DEMANDING TO SEE THE PROVIDER. SOON THE PROVIDER CAME TO THE HALLWAY THE PT WENT BACK INTO HER ROOM. PT HAS ALSO BEEN PUSHING THE CALL BUTTON VERY FRQUENTLY, HOURLY ROUNDING HAS BEEN EXPLAINED MULTIPLE TIMES TO THIS PT, HOWEVER SHE CONTINUES TO PRESS THE CALL BUTTON EVERY 30 SECONDS UNTIL STAFF ENTERS HER ROOM. THE PT CONTINUES TO BE VERBALLY AGRESSIVE TO STAFF. CALL LIGHT IN REACH, WILL CONTINUE TO MONITOR UNTIL REPORT IS GIVEN TO ONCOMING RN.
--- NOTE | 2019-08-22 00:10 | NUR ---
UPDATE PT REFUSED MIDNIGHT VITALS; REFUSES BREATHING TX; AGITATED W/ UNIT PROCEDURES; PT EDUCATED ON SAFETY AND NEED TO FOLLOW SWALLOW PRECAUTION; DECLINES NEED; PT STATED SHE WANTED TO SLEEP
[2019-08-22 06:33] LABS: BASOPHILS ABSOLUTE AUTO 0.01 K/mm3 (0.00-0.23); BASOPHILS PERCENT AUTO 0 % (0-2); EOSINOPHILS PERCENT AUTO 0 % (0-6); Hematocrit 34.3 % (33.0-51.0); Hemoglobin 10.8 g/dL (11.5-16.0); IMMATURE GRAN ABSOLUTE AUTO 0.05 K/mm3 (0.00-0.10); IMMATURE GRAN PERCENT AUTO 1 % (0-1); LYMPHOCYTES ABSOLUTE AUTO 0.43 K/mm3 (0.84-5.20); LYMPHOCYTES PERCENT AUTO 5 % (21-46); MONOCYTES ABSOLUTE AUTO 0.15 K/mm3 (0.16-1.47); MONOCYTES PERCENT AUTO 2 % (4-13); Mean Corpuscular HGB 28.4 pg (26.0-34.0); Mean Corpuscular HGB Conc 31.5 g/dL (31.5-36.5); Mean Corpuscular Volume 90 fL (80-100); Mean Platelet Volume 10.3 fL (9.1-12.4); NEUTROPHILS ABSOLUTE AUTO 8.12 K/mm3 (1.96-9.15); NEUTROPHILS PERCENT AUTO 93 % (41-73); Platelet Count 278 K/mm3 (150-400); RDW Coefficient Variation 14.9 % (11.7-14.2); RDW Standard Deviation 49.1 fL (35.1-46.3); White Blood Cell Count 8.76 K/mm3 (4.00-11.30)
[2019-08-22 06:54] LABS: Alanine Aminotransfer (ALT/SGP 16 U/L (12-78); Albumin, Blood 2.6 g/dL (3.4-5.0); Albumin/Globulin Ratio 0.6 (0.8-1.8); Alk Phos 90 U/L (50-136); Anion Gap 7 mmol/L (6-16); Aspartate Aminotrans (AST/SGOT 5 U/L (12-37); Bilirubin, Total 0.2 mg/dL (0.1-1.0); Blood Urea Nitrogen 22 mg/dL (8-24); Bun/Creatinine Ratio 45.5 (12.0-20.0); CO2, Blood 33 mmol/L (21-32); Calcium, Blood 8.5 mg/dL (8.5-10.1); Chloride, Blood 98 mmol/L (98-108); Creatinine, Blood 0.48 mg/dL (0.40-1.00); Glomerular Filtration Rate >60 (60-); Glucose, Blood 207 mg/dL (70-99); Potassium, Blood 3.9 mmol/L (3.5-5.5); Sodium, Blood 138 mmol/L (136-145); Total Protein, Blood 6.6 g/dL (6.4-8.2)
--- NOTE | 2019-08-22 07:46 | NUR ---
SHIFT SUMMARY PT A&O; HOWEVER PT IS DISSATISFIED W/ CARE; REFUSES SOME TX; PT STATED "NO ONE EVEN TOOK MY BLOOD PRESSURE"; PT WAS RE-EDUCATED ABOUT PREVIOUS DISCUSSION AND REFUSAL OF BP, PT THEN RESCENDED COMMENTS; ACE POWER GLIDE FLUSHES APPROPRIATELY BUT NOT DRAWING THIS AM; PT STATED SHE WOULD NOT TOLERATE BEING "POKED" AGAIN; LAB WAS NOTIFIED AND YARD DEMURRAGE CLERK NIYAH BLOOD EASILY W/O INCIDENT; PT RE-EDUCATED NUMEROUS TIMES OF SWALLOW PRECAUTIONS; PT STATES IT IS "STUPID" AND THAT SHE HAS NO ISSUE; DENIES NEED FOR PUDDING W/ PO MEDS; SWALLOW PRECAUTIONS REINFORCED; PT CURRENTLY RESTING IN BED; CALL LIGHT IN REACH; BED IN LOWEST POSITION; REPORT GIVEN TO DAY SHIFT RN.
--- NOTE | 2019-08-22 08:28 | NUR ---
AM NOTE... ASSUMED CARE OF PT APROX 0700. PT IS A&Ox4. PT WAS ADMITTED FOR RESP FAILURE. PT'S VS STABLE AT THIS TIME. PT IS ON 2L NC WHICH IS BASELINE FOR HER PER THE PT. PT HAS NOT BEEN FOLLOWING THE SWALLOW PRECAUTIONS IN PLACE BY ST. PT STATED " I DON'T CARE WHAT ANYONE SAYS I KNOW I DON'T HAVE A SWALLOWING ISSUE." THIS RN HAS WITNESSED THE PT TAKING A DRINK OF THIN FLUID AND COUGHING AFTERWARDS WITH A WET GURGLY VOICE. PT WAS MADE AWARE OF THIS BUT STATED "NO THATS NOT WHAT HAPPENED." NO EDEMA NOTED ON ASSESSMENT. L/S COARSE T/O DIM IN THE BASES. BT PRESENT AND HYPOACTIVE, ABD IS MOD DISTENDED AND FRIM BUT NONTENDER TO PALP. PT STATES SHE HAS ISSUE WITH CONSTIPATION AND WILL ONLY TAKE MIRLAX WHICH SHE IS GETTING BID. THE PV INSTALLER TECH ATTEMPTED TO HELP THE PT WITH A SHOWER, THE PT BECAME UPSET WITH THE PV INSTALLER TECH FOR TURNING THE WATER ON BEFORE THE PT GAVE HER PERMISSION TO. THE PT BECAME BELEGERANT TOWARDS THE PV INSTALLER TECH AND THIS RN ABOUT "USING UP ALL THE WATER." THIS RN AND THE PV INSTALLER TECH ATTEMPTED TO TELL THE PT THAT SHE DID NOT HAVE TO WORRY ABOUT THE HOT WATER RUNNING OUT. BUT THE PT WAS UNWILLING TO LISTEN. THE PT THEN STATED "THAT PV INSTALLER TECH WILL COME BACK AT EXCATLY 11 TO GIVE ME A SHOWER." THIS RN TOLD THE PT THAT THE PV INSTALLER TECH MAY BE BUSY WITH OTHER PTS AND NOT BE ABLE TO DO IT AT THAT TIME. THE PT THEN STATED "WELL SINCE YOU GUYS ARE NEGLECTING ME I WILL JUST HAVE TO TAKE A SHOWER BY MYSELF AND 'FALL' AND HEATHER THE HOSPTIAL!" CALL LIGHT IN REACH WILL CONTINUE TO MONITOR.
--- NOTE | 2019-08-22 18:28 | NUR ---
SHIFT SUMMARY... NO ACUTE NEGATIVE CHANGES NOTED THIS SHIFT. PT'S VS HAVE BEEN STABLE, PT HAS BEEN ON 2L NC T/O SHIFT. PT HAS BEEN SELF CATHING PRN. PT HAD BEDBATH AND LINEN CHANGE TODAY. NO EVENTS NOTED ON TELE. CALL LIGHT IN REACH WILL CONTINUE TO MONITOR UNTIL REPORT IS GIVEN TO ONCOMING RN.
--- NOTE | 2019-08-22 21:30 | NUR ---
ASSUMED CARE OF PATIENT AT APPROXIMATELY 1910 FROM WILD Bernal RN. PATIENT ALERT AND ORIENTED; FORGETFUL AT TIMES. PATIENT CALLED STAFF TO ROOM AND STATED "I FEEL LIKE I AM BEING IGNORED"; PCT CONCEPCIÓN WAS IN ROOM DURING SHIFT CHANGE AND PATIENT STATES "NO ONE HAS BEEN IN MY ROOM FOR HOURS". PATIENT REPORTS CHRONIC PAIN; SCHEDULED PAIN MEDICATION. PATIENT REPORTS HER TO BRING IN PIE FROM [employer]. PATIENT DENIES NUMBNESS, TINGLING, DIZZINESS AND NAUSEA. NSR ON TELE; OXYEGN SATURATION ABOVE 90% ON 2LPM VIA NC (BASELINE). PATIENT TRANSFERS TO BEDSIDE COMMODE INDEPENDENTLY; NEEDS ASSISTANCE PULLING ATTENDS UP AND DOWN; SELF CATHS AT BASELINE; WHEEL CHAIR BOUND AT BASELINE. PG S/L. PATIENT CURRENTLY RESTING IN BED; CALL LIGHT IN REACH; BED IN LOWEST POSISTION; BED ALARM ON; WILL CONTINUE TO MONITOR AND ASSESS UNTIL END OF SHIFT.
--- NOTE | 2019-08-23 05:08 | NUR ---
PATIENT HAD REMOVED OXYGEN WHILE SLEEPING; OXYGEN SATURATION IN MID 80'S; QUICKLY RECOVERED WITH 2LPM VIA NC.
--- NOTE | 2019-08-23 06:35 | NUR ---
PATIENT REFUSED PRILOSEC THIS MORNING; STATES SHE WANTS TO SLEEP; DOESNT WANT TO BE DISTURBED FOR BEDSIDE REPORT. WILL CONTINUE TO MONITOR AND ASSESS UNTIL END OF SHIFT.
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
[2019-08-23 09:35] LABS: Vancomycin, Trough 7.8 ug/mL (5.0-10.0)
[2019-08-23 09:37] LABS: Albumin, Blood 2.8 g/dL (3.4-5.0); Anion Gap 1 mmol/L (6-16); Blood Urea Nitrogen 25 mg/dL (8-24); Bun/Creatinine Ratio 49.5 (12.0-20.0); CO2, Blood 37 mmol/L (21-32); Calcium, Blood 8.8 mg/dL (8.5-10.1); Chloride, Blood 99 mmol/L (98-108); Creatinine, Blood 0.51 mg/dL (0.40-1.00); Glomerular Filtration Rate >60 (60-); Glucose, Blood 96 mg/dL (70-99); Phosphorus, Blood 2.5 mg/dL (2.5-4.9); Potassium, Blood 3.6 mmol/L (3.5-5.5); Sodium, Blood 137 mmol/L (136-145)
[2019-08-23] MEDS ORDERED: Doxycycline Mo100 M1 PO (11:30)
[2019-08-23] MEDS ORDERED: Diflucan100 MG PO (11:46)
[2019-08-23] MEDS ORDERED: HIGH POTENCY P1 EACH PO (11:47)
[2019-08-23] MEDS ORDERED: LINE600 PO (11:48)
[2019-08-23] MEDS ORDERED: Duoneb 2.5-0.5 M3 ML INH (11:49)
[2019-08-23] MEDS ORDERED: Prednisone10 MG PO (11:50)
== END 2019-08-23 13:00 | disposition home or self-care (01) | DRG 154 ==
LOC: ER 01:20 → ICUW 01:21 → PCU 01:21 → ICUE 01:21 → ICUW 07:50 → PCU 20:40
PROVIDERS: Emergency Medicine; Internal Medicine; Pharmacist; ADMIT Hospitalist
DX: J38.4 Edema of larynx (principal); J96.21 Acute and chronic respiratory failure with hypoxia; J15.212 Pneumonia due to Methicillin resistant Staphylococcus aureus; I50.22 Chronic systolic (congestive) heart failure; B37.0 Candidal stomatitis; Q05.9 Spina bifida, unspecified; G89.4 Chronic pain syndrome; K21.9 Gastro-esophageal reflux disease without esophagitis; F32.9 Major depressive disorder, single episode, unspecified; Z99.81 Dependence on supplemental oxygen; J44.9 Chronic obstructive pulmonary disease, unspecified; G47.33 Obstructive sleep apnea (adult) (pediatric); R13.10 Dysphagia, unspecified; Z87.891 Personal history of nicotine dependence; R68.2 Dry mouth, unspecified; Z88.2 Allergy status to sulfonamides; T36.8X5A Adverse effect of other systemic antibiotics, initial encounter; Y92.9 Unspecified place or not applicable
CPT/HCPCS: 36415; 51701; 70490; 74022; 80053; 80069; 80202; 83735; 85025; 87070; 87077; 87147; 87186; 87205; 92610; 93005; 93010; 94640; 94644; 94660; 94762; 96374; 99285-25; C1751; G0378; J1450; J2543; J2930; J3370; J7040

== ENCOUNTER 2019-12-25 19:03 | Inpatient (IN) | payer MEDICARE, OTHER ==
[~2019-12-25] VITALS: Ht 142.2 cm; Wt 42.2 kg
[~2019-12-25 19:03] MED LIST changes: +Diflucan100 MG PO; +Doxycycline Mo100 M1 PO; +Duoneb 2.5-0.5 M3 ML INH; +HIGH POTENCY P1 EAC1 PO; +LINE600 PO
[2019-12-25] MEDS ORDERED: PREG150 PO (19:18)
[2019-12-25] MEDS ORDERED: Nexium40 MG PO (19:18)
[2019-12-25] MEDS ORDERED: OXYC30ER PO (19:19)
[2019-12-25] MEDS ORDERED: QUET300 PO (19:20)
[2019-12-25] MEDS ORDERED: BACL20 PO (19:21)
[2019-12-25] MEDS ORDERED: ESCI20 PO (19:22)
[2019-12-25] MEDS ORDERED: ESTR2 PO (19:22)
[2019-12-25 19:25] LABS: Calcium, Ionized (POC) 1.08 mmol/L (1.10-1.46); Chloride (POC) 85 mmol/L (98-108); Creatinine (POC) 0.6 mg/dL (0.6-1.0); Glucose (ISTAT POC) 180 mg/dL (70-99); Hemoglobin (POC) 11.6 g/dL (12.0-16.0); Potassium (POC) 3.9 mmol/L (3.5-5.5); Sodium (POC) 123 mmol/L (135-148); Total CO2 (POC) 27 mmol/L (21-32)
[2019-12-25] MEDS ORDERED: MIRALAX17 GM PO (19:25)
[2019-12-25] MEDS ORDERED: DOCU100 PO (19:25)
[2019-12-25] MEDS ORDERED: QUET100 PO (19:26)
[2019-12-25 19:30] LABS: BASOPHILS PERCENT AUTO 1 % (0-2); EOSINOPHILS ABSOLUTE AUTO 0.03 K/mm3 (0.00-0.68); EOSINOPHILS PERCENT AUTO 0 % (0-6); Hematocrit 29.9 % (33.0-51.0); Hemoglobin 9.7 g/dL (11.5-16.0); IMMATURE GRAN ABSOLUTE AUTO 0.14 K/mm3 (0.00-0.10); IMMATURE GRAN PERCENT AUTO 1 % (0-1); LYMPHOCYTES ABSOLUTE AUTO 0.34 K/mm3 (0.84-5.20); LYMPHOCYTES PERCENT AUTO 2 % (21-46); MONOCYTES ABSOLUTE AUTO 1.12 K/mm3 (0.16-1.47); MONOCYTES PERCENT AUTO 5 % (4-13); Mean Corpuscular HGB 28.6 pg (26.0-34.0); Mean Corpuscular HGB Conc 32.4 g/dL (31.5-36.5); Mean Corpuscular Volume 88 fL (80-100); Mean Platelet Volume 10.8 fL (9.1-12.4); NEUTROPHILS ABSOLUTE AUTO 18.85 K/mm3 (1.96-9.15); NEUTROPHILS PERCENT AUTO 92 % (41-73); Platelet Count 345 K/mm3 (150-400); RDW Coefficient Variation 13.5 % (11.7-14.2); RDW Standard Deviation 43.3 fL (35.1-46.3); Red Blood Cell Count 3.39 M/mm3 (3.80-5.20); White Blood Cell Count 20.58 K/mm3 (4.00-11.30)
[2019-12-25 19:54] LABS: Alanine Aminotransfer (ALT/SGP 22 U/L (12-78); Albumin, Blood 2.5 g/dL (3.4-5.0); Albumin/Globulin Ratio 0.6 (0.8-1.8); Alk Phos 69 U/L (50-136); Anion Gap 8 mmol/L (6-16); Aspartate Aminotrans (AST/SGOT 42 U/L (12-37); Bilirubin, Total 0.5 mg/dL (0.1-1.0); Blood Urea Nitrogen 26 mg/dL (8-24); Bun/Creatinine Ratio 42.2 (12.0-20.0); CO2, Blood 27 mmol/L (21-32); Chloride, Blood 89 mmol/L (98-108); Creatinine, Blood 0.62 mg/dL (0.40-1.00); Globulin, Blood 4.1 g/dL (2.2-4.0); Glomerular Filtration Rate >60 (60-); Glucose, Blood 176 mg/dL (70-99); Potassium, Blood 3.8 mmol/L (3.5-5.5); Sodium, Blood 124 mmol/L (136-145); Total Protein, Blood 6.6 g/dL (6.4-8.2); Troponin I <0.015 ng/mL (0.000-0.040)
[2019-12-25] MEDS ORDERED: Seroquel Xr150 MG PO (20:27)
[2019-12-25] MEDS ORDERED: Seroquel Xr50 MG PO (20:28)
[2019-12-25] MEDS ORDERED: IPRAT-ALBUT 0.5-3 ML INH (20:29)
[2019-12-25] MEDS ORDERED: ALBU90OI INH (20:30)
[2019-12-25] MEDS ORDERED: NICO21TP TOP (22:15)
[2019-12-26 01:22] LABS: Source, Urine Catheter
[2019-12-26 01:32] LABS: Appearance, Urine Hazy (Clear); Bacteria Rare /hpf; Bilirubin, Urine Neg (Neg); Blood, Urine Neg (Neg); Color, Urine Yellow (P-Yellow); Glucose Qualitative, Urine Neg (Neg); Ketones, Urine 1+ (Neg); Leukocyte Esterase, Urine Neg (Neg); Mucus Light (0-Heavy); Nitrite, Urine Neg (Neg); Protein, Urine Neg (Neg); Red Blood Cells, Urine Not Seen /hpf (0-2); Squamous Epithelial Cells Mod /hpf (Few); Urobilinogen, Urine NORM (Normal); White Blood Cells, Urine 0-2 /hpf (0-5); Yeast/Fungi Urine Many /hpf
--- NOTE | 2019-12-26 02:51 | NUR ---
PCU ADMIT / UPDATE PT BROUGHT TO PCU-07 FROM ER BY CHAY @ APPROX 0000. PT A&O X4, SPEAKING AT A WHISPER REPORTING WHISPER TO BE A RESULT OF THROAT RADIATION. PT VSS. MONITOR SHOWS ST, 100-110. SPO2 > 92% ON 4L NC. PT INITIALLY REPORTING HOME O2 USE OF 2L NC DURING THE DAY & BIPAP AT NIGHT. PT THEN LATER STATING 2L NC AT NIGHT ONLY & RA DURING THE DAY, THEN AGAIN RESTATING 2L NC DURING DAY. PT ABD W/ ABD MIDLINE INCISION W/ NO REDNESS OR SWELLING. ABD SEVERELY DISTENDED & FIRM. PT STATES "I HAVEN'T POOPED IN A MONTH." PT REFUSING ONE TIME ORDER FOR ENEMA PER EMAR, STATING "I'M TIRED. I'M NOT DOING THAT RIGHT NOW." PT DID HOWEVER AGREE TO PO MEDICATION PER EMAR. PT THEN W/ SMALL EPISODE OF YELLOW CHUNKY EMESIS, UNMEASURABLE. PT MEDICATED W/ PRN ZOFRAN PER EMAR & DIRECTOR BLOOD BANK MORGAN NOTIFIED OF EMESIS POST PO MEDICATION. LILIBETH MORA W/ ORDERS FOR PT TO BE NPO. PT FRUSTRATED BUT UNDERSTANDING. PT REQUIRING ASSISTANCE W/ REPOSITIONING IN BED. PT REPORTS "MY LEGS DON'T WORK." BUT THEN REPORTS GETTING AROUND W/ A "WALKER, WHEEL CHAIR OR A SCOOTER" AT HOME, THEN TO AGAIN SAY "MY LEGS AREN'T WORKABLE." PT ABLE TO MOVE BLE UPON REQUEST DURING ASSESSMENT. SCARS NOTED TO BILAT FEET W/ PT REPORT OF "I HAVE TERRIBLE CIRCULATION. I'M ALWAYS ICY." PT ALSO REPORTS "I'M NUMB FROM MY THIGHS DOWN." PT W/ TERESA CATH PRESENT AFTER INSERTION IN ER. PT REPORTS SELF CATHING AT HOME. TERESA CATH DRAINING CLEAR YELLOW URINE. NS KCL GTT INFUSING PER ORDERS. WILL CONTINUE TO MONITOR & PROVIDE CARE.
[2019-12-26 04:13] LABS: BASOPHILS ABSOLUTE AUTO 0.04 K/mm3 (0.00-0.23); BASOPHILS PERCENT AUTO 0 % (0-2); EOSINOPHILS ABSOLUTE AUTO 0.03 K/mm3 (0.00-0.68); EOSINOPHILS PERCENT AUTO 0 % (0-6); Hematocrit 31.4 % (33.0-51.0); Hemoglobin 9.9 g/dL (11.5-16.0); IMMATURE GRAN ABSOLUTE AUTO 0.09 K/mm3 (0.00-0.10); IMMATURE GRAN PERCENT AUTO 1 % (0-1); LYMPHOCYTES ABSOLUTE AUTO 0.58 K/mm3 (0.84-5.20); LYMPHOCYTES PERCENT AUTO 4 % (21-46); MONOCYTES ABSOLUTE AUTO 1.04 K/mm3 (0.16-1.47); MONOCYTES PERCENT AUTO 6 % (4-13); Mean Corpuscular HGB 27.5 pg (26.0-34.0); Mean Corpuscular HGB Conc 31.5 g/dL (31.5-36.5); Mean Corpuscular Volume 87 fL (80-100); Mean Platelet Volume 10.9 fL (9.1-12.4); NEUTROPHILS ABSOLUTE AUTO 14.74 K/mm3 (1.96-9.15); NEUTROPHILS PERCENT AUTO 89 % (41-73); Platelet Count 415 K/mm3 (150-400); RDW Coefficient Variation 13.6 % (11.7-14.2); RDW Standard Deviation 43.4 fL (35.1-46.3); White Blood Cell Count 16.52 K/mm3 (4.00-11.30)
[2019-12-26 04:28] LABS: Anion Gap 2 mmol/L (6-16); Blood Urea Nitrogen 23 mg/dL (8-24); Bun/Creatinine Ratio 45.4 (12.0-20.0); CO2, Blood 31 mmol/L (21-32); Calcium, Blood 7.9 mg/dL (8.5-10.1); Chloride, Blood 97 mmol/L (98-108); Creatinine, Blood 0.51 mg/dL (0.40-1.00); Glomerular Filtration Rate >60 (60-); Glucose, Blood 131 mg/dL (70-99); Sodium, Blood 130 mmol/L (136-145)
--- NOTE | 2019-12-26 06:20 | NUR ---
SHIFT SUMMARY PT CONTINUES TO BE A&O X4. VSS. SPO2 > 92% NOW ON 3L NC. MONITOR SHOWS ST, HR 100-110's. PT SLEEPING MAJORITY OF SHIFT W/ NO FURTHER EVENTS OR CHANGES THIS SHIFT. 1 EPISODE EMESIS THIS SHIFT, MEDICATED W/ PRN ZOFRAN AND MADE NPO STATUS W/ NO FURTHER N+V, SEE PREVIOUS NOTE. ABD STILL DISTENDED. NO BM THIS SHIFT. WILL CONTINUE TO MONITOR & PROVIDE CARE UNTIL REPORT OFF TO DAY SHIFT RN.
--- NOTE | 2019-12-26 07:42 | NUR ---
ASSUMED CARE AT 0700, REPORT FROM DEBBIE HURTADO. RESTING IN SUPINE POSITION AT 30 DEGREE INCLINE. 4L O2 NC. A/A/OX4. TERESA CATH IN PLACE DRAINING CLEAR YELLOW URINE. PLAN OF CARE REVIEWED. WILL CONTINUE NPO STATUS UNTIL SWALLOW EVAL BY ST. WILL CONTINUE TO MONITOR.
--- NOTE | 2019-12-26 11:45 | NUR ---
REPORT TO DEBBIE DELGADO ON MEDICAL FLOOR TO ASSUME CARE.
--- NOTE | 2019-12-26 12:25 | NUR ---
PT TRANSFERRED TO ROOM 331 FROM PCU, PT HAD MODIFIED BARIUM SWALLOW BEFORE ARRIVING AT ROOM. PT ARRIVED VIA W/C AND ONE PERSON ASSIST TO BED AND THEN TO CHAIR. ORIENTED TO ROOM AND CALL SYSTEM. CALL MILLER IN REACH, WILL CONTINUE TO MONITOR
[2019-12-26] MEDS ORDERED: HIGH POTENCY P1 EAC1 PO (13:27)
[2019-12-26] MEDS ORDERED: SENN187 PO (13:29)
--- NOTE | 2019-12-26 14:30 | NUR ---
ATTEMPTED TO MEDICATE PT FOR PAIN WITH 25MCG OF IV FENTANYL AND DISCOVERED THAT RAC IV SITE WAS OUT. BRITTON MARKS AND ELSA REAL UNSUCCESSFULLY ATTEMPTED IV PLACEMENT UNTIL PT REQUESTED A STOP AT THIS TIME. WILL PASS ALONG TO UM NURSE
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
--- NOTE | 2019-12-26 18:33 | NUR ---
Spoke to pt's nurse and charge nurse. Pt is expressing that she would like to be made comfortable at this time. She does not want a PEG tube or further treatments to prolong life. Nurses have called and talked to Dr. Galicia, but comfort measures were not ordered. Call placed to Dr. Galicia. Unable to reach, so call placed to LILIBETH Jurado. Discussed with her and she has discussed with Dr. Galicia. Pt has been waivering in her decision making. Comfort measures decision and further discussion can be held tomorrow with physician involvement. Pt expressed wish to have the PEG tube placed earlier today. Will continue to follow.
--- NOTE | 2019-12-26 18:36 | NUR ---
DR HEREDIA INTO SEE PT THIS EVENING, PT AGREED TO A PEG TUBE AND DR HEREDIA ORDERED A CLEAR LIQUID DIET FOR DINNER, PT TO BE NPO AFTER MIDNIGHT.
[2019-12-27 05:34] LABS: BASOPHILS ABSOLUTE AUTO 0.03 K/mm3 (0.00-0.23); BASOPHILS PERCENT AUTO 0 % (0-2); EOSINOPHILS ABSOLUTE AUTO 0.22 K/mm3 (0.00-0.68); EOSINOPHILS PERCENT AUTO 2 % (0-6); Hematocrit 28.5 % (33.0-51.0); Hemoglobin 8.9 g/dL (11.5-16.0); IMMATURE GRAN ABSOLUTE AUTO 0.03 K/mm3 (0.00-0.10); IMMATURE GRAN PERCENT AUTO 0 % (0-1); LYMPHOCYTES PERCENT AUTO 5 % (21-46); MONOCYTES ABSOLUTE AUTO 0.59 K/mm3 (0.16-1.47); MONOCYTES PERCENT AUTO 5 % (4-13); Mean Corpuscular HGB 28.1 pg (26.0-34.0); Mean Corpuscular HGB Conc 31.2 g/dL (31.5-36.5); Mean Platelet Volume 11.2 fL (9.1-12.4); NEUTROPHILS ABSOLUTE AUTO 9.84 K/mm3 (1.96-9.15); NEUTROPHILS PERCENT AUTO 88 % (41-73); Platelet Count 314 K/mm3 (150-400); RDW Coefficient Variation 13.8 % (11.7-14.2); Red Blood Cell Count 3.17 M/mm3 (3.80-5.20); White Blood Cell Count 11.21 K/mm3 (4.00-11.30)
[2019-12-27 05:35] LABS: Mean Corpuscular Volume 90 fL (80-100)
[2019-12-27 06:02] LABS: Anion Gap 5 mmol/L (6-16); Blood Urea Nitrogen 18 mg/dL (8-24); Bun/Creatinine Ratio 36.1 (12.0-20.0); CO2, Blood 30 mmol/L (21-32); Calcium, Blood 8.5 mg/dL (8.5-10.1); Chloride, Blood 100 mmol/L (98-108); Glomerular Filtration Rate >60 (60-); Glucose, Blood 93 mg/dL (70-99); Potassium, Blood 4.4 mmol/L (3.5-5.5); Sodium, Blood 135 mmol/L (136-145)
--- NOTE | 2019-12-27 06:24 | NUR ---
0515 PT FOUND TO BE UNRESPONSIVE TO STERNAL RUBS. PUPILS LARGE AND UNRESPONSIVE. BREATHING IRREGULAR, SHALLOW, INFREQUENT. DIAPHORETIC. CBG 90. RAPID RESPONSE CALLED AT 0517.
--- NOTE | 2019-12-27 06:27 | NUR ---
REPORT CALLED TO ICU 3 RN. PT T/F PCU STATUS TO ICU 3 AT 0610.
--- NOTE | 2019-12-27 06:43 | NUR ---
PT TO ICU 3 VIA CHAY WITH MEDICAL FLOOR RN VIA CHAY @ 0605. PT SLEEPING BUT AROUSABLE, ORIENTED TO SELF, LOCATION AND FOLLOWING SOME DIRECTIONS. PT FORGETFUL, REPEATEDLY ASKS "WHAT DID THEY GIVE ME?" AND STS "I AM COLD", WARM BLANKET PROVIDED. O2 SATURATIONS 97% ON 4L PER NC, MONITOR SHOWS SINUS TACH WITH HR 110-120, BP STABLE, PT AFEBRILE. NS WITH 20meq KCL RESTARTED AT 75ml/hr. TERESA IN PLACE. BED ALARM ON.
--- NOTE | 2019-12-27 07:37 | NUR ---
CALLED PLACED TO PT JUAN LUIS. UNABLE TO REACH HIM. VOICEMAIL LEFT RE: PT T/F TO ICU3.
--- NOTE | 2019-12-27 09:42 | NUR ---
PT UPDATE... ASSUMED CARE OF PT APROX 0700. UPON ASSESSMENT PT IS AROUSABLE TO STERNAL RUB AND LOUD VERBAL STIMULI. PT IS UNABLE TO FOLLOW DIRECTIONS AT THIS TIME, PUPILS ARE SLUGGISH BUT EQUAL AT 2MM. PT IS DIAPHORETIC AND PALE. PT'S BP HAS BEEN SOFT AND IS CURRENTLY 81/53 MAP 61, RR22 TEMP 98.0 HR101. NO EDEMA NOTED ON ASSESSMENT. L/S COARSE W/EXP WHEEZES HEARD T/O AND CRACKLES AT THE BASES ON 4L NC W/SATS >92%. BT VERY HYPOACTIVE, ABD HAS MIDLINE INCISION FROM ABD SURGERY ON 12/16, ABD IS VERY FIRM TO PALP. DR. RODRIGUES CALLED AND UPDATED ON PT'S CONDITION. CALL LIGHT IN REACH WILL CONTINUE TO MONITOR.
--- NOTE | 2019-12-27 11:55 | NUR ---
PT UPDATE... PT ABLE TO OPEN EYES TO VERBAL STIMULI, WHEN ASKED IF THE PT KNEW WHERE SHE WAS AT THE PT SAID "I DON'T CARE JUST LET ME SLEEP, DON'T BOTHER ME." AND CLOSED HER EYES AGAIN. CURRENTLY PT'S VS STABLE WITH BP AT 90/49 WITH A MAP OF 66, RR 12 IRREGULAR, O2 SATS 96% ON 2L NC TIRATED FROM 4LNC AT THE START OF THIS SHIFT. CALL LIGHT IN REACH WILL CONTINUE TO MONITOR.
--- NOTE | 2019-12-27 12:43 | NUR ---
PT UPDATE... PROVIDER IN THE THE ROOM FOR ASSESSMENT. PT WAKES TO TOUCH AND VERBAL STIMULI, PT IS ABLE TO SPEAK WITH PROVIDER AND ANSWER QUESTIONS APPROPRIATELY. 1000ML BOLUS ORDERED, PT IS STILL NPO PER SPEECH EVALUATION RECCOMENDATION. PT IS VERY AGITATED BY BEING NPO AND DEMANDS ICE CHIPS AND CHICKEN BROTH. THIS RN EDUCATED THE PT ON HER NPO STATUS, WHY SHE IS NPO STATUS, PT VERBALIZED HER UNDERSTANDING. PT ALSO VERY AGITATED THAT SHE CANNOT HAVE HER PO MEDICATIONS FROM HOME LIKE HER OXYCOTIN AND LYRICA. THIS RN AGAIN EDUCATED THE PT ON WHY SHE IS NPO AND WHAT APRIATION PNEUMONIA IS. CALL LIGHT IN REACH WILL CONTINUE TO MONITOR
--- NOTE | 2019-12-27 14:07 | NUR ---
Pt resting in bed upon arrival. Engaged in therapeutic listening as Pt expresses frustration regarding not receiving her pain medications. Reminded Pt of SENIOR ENERGY ANALYST called and her receiving 2 doses of Narcan. Pt reports understanding but is still frustrated. Continued therapeutic listening as Pt reports plan to go home once PNA has cleared. She states her plan for continued PO intake. Reminded Pt of recommendations based off barium swallow study. Educated Pt on the consequences of continued PO intake. Pt states she understands but still plans for continued PO intake. Pt also reports she is no longer interested in hospice and states I have children and granddchildren to live for. Continued therapeutic listening. Pt expresses appreciation of visit. Spoke with Bedside RN Naida and discussed case. Fentanyl IV has been ordered PRN for pain. Palliative Care will remain available.
--- NOTE | 2019-12-27 14:19 | NUR ---
PT UPDATE/TRANSFER... SURGICAL PROVIDER WAS CALLED AND NEW ORDERS OBTAINED FOR SOAP SUDS ENEMA AND NG TUBE PLACEMENT. PT HAS REFUSED THESE IN THE PAST. PT'S VS STABLE AT THIS TIME ON 2L NC WHICH IS HER BASELINE. REPORT WAS CALLED TO EXHIBITION CARVERDEBBIE SPAIN.
--- NOTE | 2019-12-27 16:32 | NUR ---
REFUSING IV FLUIDS AND IV ABX AT THIS TIME. STATES IS GOING TO HAVE COME PICK HER UP TO TAKE TO [facility] WHERE HER GI DOCTOR IS. AMA FORM PROVIDED AND SIGNED.
--- NOTE | 2019-12-27 18:30 | NUR ---
IN PT ROOM TO DISCUSS ENEMA. PT ON PHONE WITH SPOUSE AND ASKS THIS RN TO SPEAK WITH SPOUSE. WHILE TALKING ON PHONE PT BECOMES AGITATED AND THIS RN AND PHYSICALLY AGRESSIVE, ATTEMTS TO GRAB ARMS, PHONE CORDS, PULL PHONE OUT OF MY HAND. PT PULLS CORDS EXTREMELY HARD AND PULLS CORD OUT OF PHONE WHILE THIS RN TALKING ON IT TO SPOUSE. YELLS AT THIS RN AND STATES SHE HATES ME AND DEMANDS A NEW NURSE. SITTING UP IN BED YELLING AND SCREAMING. SECOND RN TO ROOM. PT EVENTALLY CALMS AND AGREES TO REMAIN FROM HITTING AND ANY MORE AGRESSION.
--- NOTE | 2019-12-27 18:34 | NUR ---
SOAP SUDS ENEMA GIVEN AFTER LENGHTY CONVERSATION WITH PT. SECOND RN ASSISTED. INFUSED 600ML SOAPY WATER PER ORDERS.
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
--- NOTE | 2019-12-28 00:45 | NUR ---
OXYGEN REMOVAL PT REQUESTING 4L NC BE TURNED DOWN TO 2L. PT INFORMED 4L NC IS NEEDED AT THIS TIME TO MAINTAIN SPO2 > 92%. PT THEN STATING, "FINE THEN I'M TAKING IT OFF." PT THEN REMOVING NC. SPO2 DOWN TO 83% ON RA. PT INFORMED OF LOW O2 LEVEL & WAS THEN AGREEABLE TO REPLACE NC. PT ENCOURAGED TO LEAVE IN PLACE.
--- NOTE | 2019-12-28 03:45 | NUR ---
PAIN & OXYGEN REMOVAL THIS RN TO PT RM W/ PT REQUESTING PAIN MEDICATION, RATING PAIN FROM "WASTE DOWN" 10/10, BREATHING RAPIDLY W/ SPO2 70's ON RA AFTER REMOVING NC AGAIN. PT TALKING NONSTOP. NC REAPPLIED & PT COACHED TO PAUSE TALKING & FOCUS ON TAKING DEEP BREATHS. PT RELUCTANT TO FOLLOW INSTRUCTIONS, CONTINUING TO TALK CONTINUOUSLY. PT EVENTUALLY FOLLOWING INSTRUCTIONS FOR DEEP BREATHING. SPO2 RETURN TO > 92% ON 4L NC. PRN IV FENTANYL PROVIDED PER PT REQUEST/EMAR. PT NOW CALM, BREATHING NORMALLY, RESTING IN BED.
--- NOTE | 2019-12-28 06:11 | NUR ---
SHIFT SUMMARY PT A&O. PT CONTRADICTS OWN STATEMENTS, CHANGING STORIES REPETITIVELY T/O SHIFT. VSS. MONITOR SHOWING SR-ST, HR 90's-110's. SPO2 > 92% ON 2-4L NC. EPISODES OF PT DESAT W/ SELF-REMOVAL OF NC, SEE PREVIOUS NOTES. ABD MIDLINE INCISION W/ PIO IN TACT. ABD FIRM AND DISTENDED. NO BM THIS SHIFT BUT PT REPORTS "PASSING GAS." PT C/O PAIN FROM "WHOLE WASTE DOWN", RATING PAIN 7-10/10, MEDICATED W/ PRN IV FENTANYL X5 THIS SHIFT. PT STRICT NPO D/T ASPIRATION. NS GTT INFUSING PER ORDERS. WILL CONTINUE TO MONITOR AND PROVIDE CARE UNTIL REPORT OFF TO DAY SHIFT RN.
--- NOTE | 2019-12-28 16:13 | NUR ---
PT STATUS CHANGE TO MEDICAL WITHOUT TELE. VITALS HAS BEEN STABLE FOR THE SHIFT HRR NSR 90'S, SATS ABOVE 94% ON 2L OF O2, AFEBRILE. ALERT AND ORIENTED TO PERSON, PLACE AND SITUATION, ANXIOUS AT TIMES. CALLS OFTEN NEEDS REASSURANCE/REDIRECTION AT TIMES, UNABLE TO FOCUS ON ONE TOPIC PER CONVERSATION. ABD INCISION AND PIO CDI NO REDNESS/DRAINAGE NOTED ON THE SITE. PT NOW TAKES DILAUDID Q4 HRS FOR PAIN AND IS EFFECTIVE. PT HAD SOAP SUDS ENEMA WITH MEDIUM FIRM BOWEL RESULT. PT ALSO WORKED WITH THERAPY WITHOUT ISSUES, COOPERATIVE WITH CARES, CONTINUES ON IV ABO FOR PNA. PT CURRENTLY STRICT NPO, TOLERATING SWABS FOR DRY MOUTH. PT TO GET RE-EVALUATED BY SPEECH THERAPIST TOMORROW. REPORT GIVEN TO LAM LUJAN RN, PT TRANSFERRED TO ROOM 341. SPOUSE JUAN LUIS MADE AWARE OF TRANSFER
--- NOTE | 2019-12-28 16:33 | NUR ---
PT ARRIVED TO THE MEDICAL FLOOR FROM THE PCU, A/OX3, PLEASANT AND COOPERATIVE, PT IS ON O2 VIA NC AT 2L/MIN, THE PT WAS MEDICATED FOR IN IN THE PCU JUST PRIOR TO COMING TO THE MEDICAL UNIT, THE PT WAS ORIENTED TO THE ROOM LAYOUT AND CALL SYSTEM, PT IS A STAND PIVOT ASSIST UP, THE PT APPEARS TO BE BREATHING EASILY AT REST, THE PT IS STRICT NPO AT THIS TIME
--- NOTE | 2019-12-28 21:42 | NUR ---
PT REFUSED BEDTIME SOAP SUDS ENEMA. PER DAY SHIFT REPORT, PT HAD A LARGE BM AFTER PREVIOUS ENEMA. WILL CONTINUE TO MONITOR.
--- NOTE | 2019-12-29 06:48 | NUR ---
SHIFT SUMMARY PT IS A 54 Y/O FEMALE, ADMITTED FOR SEVERE SEPSIS. 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 PT COMPLAINS OF CONSTANT PAIN AT A 10/10, AND WAS MEDICATED WITH IV DILAUDID Q4H. SHE WAS ALSO MEDICATED FOR NAUSEA WITH PRN ZOFRAN. PT DID REPORT NEW ONSET HEARTBURN, AND AFTER INFORMNING HOSPITALIST EMBOSSER OPERATOR FELIX IV PROTONIX WAS STARTED. PT IS CURRENTLY NPO AFTER FAILING A SWALLOW EVAL. VITAL SIGNS STABLE. PT RECEIVING NS @ 100 ML/HR. NO ACUTE CHANGES IN PT CONDITION NOTED. WILL CONTINUE TO MONITOR AND TREAT PER EMAR UNTIL HAND OFF TO DAY SHIFT RN.
--- NOTE | 2019-12-29 10:00 | NUR ---
Clinical Visit: Pt is alert, oriented, pleasant. She appears slightly aggitated. This seems to be related to pt's desire to be discharged home today, along with lack of sleep and poor pain control. She reports that she hasn't been able to sleep due to her pain being unmanaged. She has been getting dilaudid q4 hours and states that this isn't enough medication to keep her at her own baseline for pain control. She wants to go home and take her own pills. Reviewed current health situation. She is aware that she will not live without the placement of a PEG tube for nutrition. She states that she wants to "go home and think about it," and "when I'm ready, I will just come back." She states, "I will have the tube, but I will do it when I'm ready and I'm not ready yet." Reviewed decision making. Recommended to pt to have the procedure before she goes home and she is declining that option for now. Reviewed risk of aspiration with her. Discussed POLST form. She states that she already has one filled out at home. She will bring a copy next time she comes to the hospital. She reports that she would like to take an extra one with her so that the document can be reviewed with her PCP and discussed at that time. Called and spoke to Dr. Flynn. She orders a one time dose of dilaudid that will be given before she goes home. No other orders placed. Pt will be discharged today. Reviewed with hospitalist and care managers. They are to contact the pt's PCP and relate that PEG tube placement can be done as an outpatient procedure. Pt high risk for readmission.
[2019-12-29] MEDS ORDERED: AMOCLA875 PO (11:32)
--- NOTE | 2019-12-29 12:02 | NUR ---
1200 PT DISCHARGED HOME VIA PERSONAL VEHICLE ACCOMPANIED AND DRIVEN BY CAREGIVER. IV AND TERESA REMOVED. D/C PAPERWORK REVIEWED WITH PT AND COPY PROVIDED. NEW RX FAXED TO [facility] PER PT REQUEST. NO NEW CHANGES OR CONCERNS.
== END 2019-12-29 12:00 | disposition home health service (06) | DRG 871 ==
LOC: ER 19:03 → ICUE 23:41 → PCU 23:41 → MEDS 12-26 12:10 → ICUE 12-27 06:01 → PCU 12-27 15:08 → MEDS 12-28 15:56
PROVIDERS: Hospitalist; Nurse Practitioner Acute Care; Student in an Organized Health Care Education/Training Program; ADMIT Internal Medicine
DX: A41.9 Sepsis, unspecified organism (principal); J69.0 Pneumonitis due to inhalation of food and vomit; G93.41 Metabolic encephalopathy; J96.21 Acute and chronic respiratory failure with hypoxia; J44.0 Chronic obstructive pulmonary disease with (acute) lower respiratory infection; E44.0 Moderate protein-calorie malnutrition; I50.22 Chronic systolic (congestive) heart failure; Z68.1 Body mass index [BMI] 19.9 or less, adult; R65.20 Severe sepsis without septic shock; K59.09 Other constipation; R13.12 Dysphagia, oropharyngeal phase; I11.0 Hypertensive heart disease with heart failure; G89.4 Chronic pain syndrome; R33.9 Retention of urine, unspecified; Z99.81 Dependence on supplemental oxygen; E87.6 Hypokalemia; E83.39 Other disorders of phosphorus metabolism; G47.33 Obstructive sleep apnea (adult) (pediatric); F17.210 Nicotine dependence, cigarettes, uncomplicated
CPT/HCPCS: 36415; 51702; 71250; 74176; 74230; 80047; 80048; 80053; 81001; 82947; 83605; 84484; 85014; 85025; 92610; 92611; 93005; 93010; 94640; 94660; 94760; 94762; 96361-59; 96365-59; 96367-59; 97162; 97530; 99285-25; C9113; J0692; J1170; J2310; J2405; J2543; J3010; J3370; J3480; J7030

== ENCOUNTER 2019-12-30 22:42 | Inpatient (IN) | payer MEDICARE, OTHER ==
[~2019-12-30] VITALS: Ht 132.1 cm; Wt 54.1 kg
[~2019-12-30 22:42] MED LIST changes: +ALBU90OI INH; +AMOCLA875 PO; +DOCU100 PO; +ESTR2 PO; +IPRAT-ALBUT 0.5-3 ML INH; +MIRALAX17 GM PO; +QUET100 PO; +QUET300 PO; +SENN187 PO; +Seroquel Xr150 MG PO
[2019-12-30 23:09] LABS: PCO2 Arterial 56.4 mmHg (35-45); PO2 Arterial 58.8 mmHg (80-100)
[2019-12-30 23:10] LABS: pH Blood Arterial 7.26 (7.35-7.45)
[2019-12-30 23:42] LABS: BASOPHILS ABSOLUTE AUTO 0.04 K/mm3 (0.00-0.23); BASOPHILS PERCENT AUTO 0 % (0-2); EOSINOPHILS ABSOLUTE AUTO 0.15 K/mm3 (0.00-0.68); EOSINOPHILS PERCENT AUTO 2 % (0-6); Hemoglobin 9.4 g/dL (11.5-16.0); IMMATURE GRAN ABSOLUTE AUTO 0.05 K/mm3 (0.00-0.10); IMMATURE GRAN PERCENT AUTO 1 % (0-1); LYMPHOCYTES PERCENT AUTO 6 % (21-46); MONOCYTES ABSOLUTE AUTO 0.47 K/mm3 (0.16-1.47); MONOCYTES PERCENT AUTO 5 % (4-13); Mean Corpuscular HGB 28.1 pg (26.0-34.0); Mean Corpuscular HGB Conc 31.3 g/dL (31.5-36.5); Mean Corpuscular Volume 90 fL (80-100); Mean Platelet Volume 10.5 fL (9.1-12.4); NEUTROPHILS ABSOLUTE AUTO 7.83 K/mm3 (1.96-9.15); NEUTROPHILS PERCENT AUTO 87 % (41-73); Platelet Count 311 K/mm3 (150-400); RDW Coefficient Variation 14.8 % (11.7-14.2); RDW Standard Deviation 46.7 fL (35.1-46.3); Red Blood Cell Count 3.34 M/mm3 (3.80-5.20); White Blood Cell Count 9.04 K/mm3 (4.00-11.30)
[2019-12-31 00:04] LABS: Alanine Aminotransfer (ALT/SGP 17 U/L (12-78); Albumin, Blood 2.2 g/dL (3.4-5.0); Albumin/Globulin Ratio 0.7 (0.8-1.8); Alk Phos 54 U/L (50-136); Anion Gap 7 mmol/L (6-16); Aspartate Aminotrans (AST/SGOT 38 U/L (12-37); Bilirubin, Total 0.3 mg/dL (0.1-1.0); Blood Urea Nitrogen 19 mg/dL (8-24); CO2, Blood 27 mmol/L (21-32); Calcium, Blood 7.4 mg/dL (8.5-10.1); Chloride, Blood 104 mmol/L (98-108); Creatinine, Blood 0.73 mg/dL (0.40-1.00); Globulin, Blood 3.2 g/dL (2.2-4.0); Glomerular Filtration Rate >60 (60-); Glucose, Blood 232 mg/dL (70-99); Potassium, Blood 3.3 mmol/L (3.5-5.5); Sodium, Blood 138 mmol/L (136-145); Total Protein, Blood 5.4 g/dL (6.4-8.2)
[2019-12-31 01:11] LABS: PCO2 Arterial 55.7 mmHg (35-45); PO2 Arterial 56.8 mmHg (80-100); pH Blood Arterial 7.29 (7.35-7.45)
--- NOTE | 2019-12-31 06:31 | NUR ---
PT ARRIVED TO ICU FROM ED AT 0035. VERY PURPOSEFUL TOWARDS TUBE. PROPOFOL GTT STARTED. RESTRAINTS APPLIED. PT WAS HYPOTENSIVE, FRANKLIN MALLOY NOTIFIED, 1L NS BOLUS GIVEN AND FLUIDS STARTED AT 150 ML/HR. PT WAS HYPOTHERMIC ON ADMISSION, WARMED WITH BLANKETS. REMAINS ON THE VENT 20/325/[address] CHEST ORDERED W/ CONTRAST, PT HAS ALLERGY, FRANKLIN NOTIFIED AND ORDER TO DC CT AT THIS TIME. OG TO LIS, ABDOMEN DISTENDED. MIDLINE ABDOMINAL INCISION WITH PIO FROM PRIOR ADMISSION.
--- NOTE | 2019-12-31 08:00 | NUR ---
Curry of Care: Care assumed at 0700hr. Patient intubated and sedated with propofol gtt at 10mcg/kg/min. Responds to verbal stimuli, opens eyes, but not following any other commands. No s/s of pain or discomfort, appears comfortable. Vent to AC-24/375/5/60% at shift change, FiO2 then decreased to 50%. spO2-98%, tolerating vent without difficulty. Peripheral IV's x2 patent and intact, infusing without difficulty. This RN removed IO to rt lower leg shortly after shift change, site appears wnl. Varner cath patent and intact, draining small amounts of dark yellow urine. OG to low intermittent suction at shift change, brown output in collection canister but no longer producing output, now clamped per Dr. Lozoya. Bilateral soft wrist restraints in place to protect lines, tubes, cords. Will continue to monitor.
[2019-12-31 08:41] LABS: Anion Gap 7 mmol/L (6-16); Blood Urea Nitrogen 18 mg/dL (8-24); Bun/Creatinine Ratio 31.2 (12.0-20.0); CO2, Blood 26 mmol/L (21-32); Calcium, Blood 7.2 mg/dL (8.5-10.1); Chloride, Blood 108 mmol/L (98-108); Creatinine, Blood 0.58 mg/dL (0.40-1.00); Glomerular Filtration Rate >60 (60-); Glucose, Blood 162 mg/dL (70-99); Potassium, Blood 3.2 mmol/L (3.5-5.5); Sodium, Blood 141 mmol/L (136-145)
--- NOTE | 2019-12-31 18:13 | NUR ---
Shift Summary: Patient remains intubated and sedated. Vent settings changed by Dr. Lozoya, now AC-18/325/5/40%. SpO2 decreased to high 80's this afternoon, ET suctioning (large amount of thick brown/yellow), effective to increase spO2, now 95%. Propofol gtt at 10mcg/kg/min until this afternoon when patient woke and became extremely restless/agitates, sitting up in bed and reaching for ET tube. Unable to verbally re-direct patient, propofol gtt titrated up to 30mcg/kg/min, and x1 dose prn Ativan given with good effect. Patient remained calm, sleeping for remainder of shift. HR and BP remains stable. Varner cath remains patent and intact, draining dark yellow urine. Peripheral IV's x2 remain patent and intact, infusing without difficulty. Patient transported to CT at 1700hr by this RN, RT Kandice, and java tech. CT of ABD/pelvis, and chest completed without difficulty. Call then received from Dr. Lozoya, received order for heparin gtt (per pharmacy), and for enema's (per nursing protocol), as her large colon shows large amounts of stool. Awaiting orders from pharmacy (heparin gtt) at this time. Consulted Dr. Lozoya this morning r/t ABD kvng from previous surgery, instructed to contact Dr. Piper before removing kvng. Call placed to Dr. Piper, informed nursing staff allowed to remove kvng x2 weeks after surgery date. X2 weeks post surgery is today, 12/31/19, plan to remove kvng before shift change. ABD incision remains C/D/I and well approximated.
[2019-12-31 19:23] LABS: International Normalized Ratio 1.32; Prothrombin Time Results 13.9 Sec (9.7-11.5)
[2020-01-01 03:52] LABS: BASOPHILS ABSOLUTE AUTO 0.01 K/mm3 (0.00-0.23); BASOPHILS PERCENT AUTO 0 % (0-2); EOSINOPHILS PERCENT AUTO 0 % (0-6); Hematocrit 29.5 % (33.0-51.0); Hemoglobin 9.2 g/dL (11.5-16.0); IMMATURE GRAN ABSOLUTE AUTO 0.06 K/mm3 (0.00-0.10); IMMATURE GRAN PERCENT AUTO 1 % (0-1); LYMPHOCYTES ABSOLUTE AUTO 0.22 K/mm3 (0.84-5.20); LYMPHOCYTES PERCENT AUTO 2 % (21-46); MONOCYTES ABSOLUTE AUTO 0.16 K/mm3 (0.16-1.47); MONOCYTES PERCENT AUTO 2 % (4-13); Mean Corpuscular HGB 28.1 pg (26.0-34.0); Mean Corpuscular HGB Conc 31.2 g/dL (31.5-36.5); Mean Corpuscular Volume 90 fL (80-100); Mean Platelet Volume 10.8 fL (9.1-12.4); NEUTROPHILS ABSOLUTE AUTO 10.57 K/mm3 (1.96-9.15); NEUTROPHILS PERCENT AUTO 96 % (41-73); Platelet Count 226 K/mm3 (150-400); RDW Coefficient Variation 15.5 % (11.7-14.2); RDW Standard Deviation 48.9 fL (35.1-46.3); Red Blood Cell Count 3.27 M/mm3 (3.80-5.20); White Blood Cell Count 11.02 K/mm3 (4.00-11.30)
[2020-01-01 04:12] LABS: Anion Gap 6 mmol/L (6-16); Blood Urea Nitrogen 16 mg/dL (8-24); Bun/Creatinine Ratio 33.2 (12.0-20.0); CO2, Blood 27 mmol/L (21-32); Calcium, Blood 6.8 mg/dL (8.5-10.1); Chloride, Blood 108 mmol/L (98-108); Creatinine, Blood 0.48 mg/dL (0.40-1.00); Glomerular Filtration Rate >60 (60-); Glucose, Blood 217 mg/dL (70-99); Magnesium, Blood 1.2 mg/dL (1.6-2.4); Phosphorus, Blood 3.5 mg/dL (2.5-4.9); Potassium, Blood 3.5 mmol/L (3.5-5.5); Sodium, Blood 141 mmol/L (136-145)
[2020-01-01 04:56] LABS: PCO2 Arterial 42.9 mmHg (35-45); pH Blood Arterial 7.38 (7.35-7.45)
[2020-01-01 05:11] LABS: Troponin I 0.944 ng/mL (0.000-0.040)
--- NOTE | 2020-01-01 05:33 | NUR ---
SHIFT SUMMARY PATIENT HAS SLEPT WELL THROUGH NIGHT. DURING BATH, REMOVED X7 RINGS, PLACED IN CONTAINER IN STORAGE CUBBY, FINGERS HAVE STARTED TO EXPERIENCE INCREASED SWELLING. HEPARIN DRIP TITRATED PER PHARMACY ORDERS, SEE EMAR. WAKES UP OCCASIONALLY THROUGH PROPOFOL, HAS TRACKED ME AROUND ROOM, NON-COOPERATIVE HOWEVER. NO BM AFTER ENEMA, STOOL SOFTENERS, PRUNE JUICE GIVEN DOWN OG. NO FURTHER CHANGES TO NOTE. ASSESSMENT IS CHARTED. VSS. NO C/O PAIN. WILL CONTINUE TO MONITOR.
--- NOTE | 2020-01-01 08:48 | NUR ---
Campbell of Care: Care assumed at 0700hr. Patient remains intubated/sedated. Propofol gtt at 20mcg/kg/min. Patient responds to noxious and verbal stimuli. Able to open eyes and nod head yes/no, but not following any other commands. Vent to AC- 18/325/5/405, spO2-95%. Patient breath stacking approx every other breath, Dr. Lozoya aware, otherwise tolerating vent without difficulty. Peripheral IV's x3 patent and intact, infusing without difficulty. Heparin gtt infusing at 17u/kg/hr, dose confirmed with EMAR and NOC shift RN. Varner cath patent and intact, draining clear yellow urine. Mid-line ABD incision from recent surgery, kvng removed by NOC RN, gauze dressing in place. incision and dressing C/D/I. Bilateral soft wrist restraints in place to protect lines, tubes, cords. Will continue to monitor.
--- NOTE | 2020-01-01 15:34 | NUR ---
Tiarra was on vent and non-responsive. Provided prayer at bedside and assureance of God's care. Once Tiarra is lucid, POLST may need to be readdressed. [facility] services will remain available.
--- NOTE | 2020-01-01 17:50 | NUR ---
Shift Summary: No significant changes throughout shift. Dr. Lozoya to room at 100hr, changed vent to PS of 7/5. Patient tolerates this mode better than AC mode, no breath stacking. Tidal volumes 900, and rate 10-12 after first switching over to PS mode. Sedation then decreased from propofol 25mcg/kg/min to 15mcg/kg/min, patient now pulling 600-700 tidal volumes and respiratory rate increased to 18-22, continues to tolerate vent without difficulty. FiO2-35-45%, spO2-88-95%, VSS. Less secretions from ETT this shift r/t yesterday, but continues to be thick and yellow. Peripheral IV's x3 remain patent and intact. Heparin gtt increased from 17 to 18u/kg/hr per pharmacy. Varner cath remains patent and intact, draining clear yellow dark urine. TF at goal of 30ml/hr, residual's 20-70ml. x2 doses of prn fentanyl given for s/s of pain with good effect noted. Appears calm and comfortable at this time. Will continue to monitor until report to NOC shift RN.
[2020-01-02 03:27] LABS: BASOPHILS ABSOLUTE AUTO 0.01 K/mm3 (0.00-0.23); BASOPHILS PERCENT AUTO 0 % (0-2); EOSINOPHILS ABSOLUTE AUTO 0.19 K/mm3 (0.00-0.68); EOSINOPHILS PERCENT AUTO 3 % (0-6); Hematocrit 25.6 % (33.0-51.0); Hemoglobin 8.3 g/dL (11.5-16.0); IMMATURE GRAN ABSOLUTE AUTO 0.03 K/mm3 (0.00-0.10); IMMATURE GRAN PERCENT AUTO 0 % (0-1); LYMPHOCYTES ABSOLUTE AUTO 0.65 K/mm3 (0.84-5.20); LYMPHOCYTES PERCENT AUTO 8 % (21-46); MONOCYTES ABSOLUTE AUTO 0.33 K/mm3 (0.16-1.47); MONOCYTES PERCENT AUTO 4 % (4-13); Mean Corpuscular HGB 28.6 pg (26.0-34.0); Mean Corpuscular HGB Conc 32.4 g/dL (31.5-36.5); Mean Corpuscular Volume 88 fL (80-100); Mean Platelet Volume 10.4 fL (9.1-12.4); NEUTROPHILS PERCENT AUTO 84 % (41-73); Platelet Count 192 K/mm3 (150-400); RDW Standard Deviation 48.3 fL (35.1-46.3); White Blood Cell Count 7.71 K/mm3 (4.00-11.30)
[2020-01-02 03:47] LABS: Anion Gap 4 mmol/L (6-16); Blood Urea Nitrogen 17 mg/dL (8-24); Bun/Creatinine Ratio 42.2 (12.0-20.0); CO2, Blood 28 mmol/L (21-32); Calcium, Blood 6.7 mg/dL (8.5-10.1); Chloride, Blood 111 mmol/L (98-108); Glomerular Filtration Rate >60 (60-); Glucose, Blood 105 mg/dL (70-99); Magnesium, Blood 1.3 mg/dL (1.6-2.4); Phosphorus, Blood 2.6 mg/dL (2.5-4.9); Potassium, Blood 3.1 mmol/L (3.5-5.5); Sodium, Blood 143 mmol/L (136-145)
[2020-01-02 05:10] LABS: PCO2 Arterial 46.9 mmHg (35-45); PO2 Arterial 56.4 mmHg (80-100); pH Blood Arterial 7.39 (7.35-7.45)
--- NOTE | 2020-01-02 06:00 | NUR ---
SHIFT SUMMARY PATIENT SLEPT WELL THROUGH NIGHT. SPUTUM PRODUCTION APPEARS LESS THAN LAST NIGHT, MORE WHITE THAN PRIOR. AM REBOLUSING HEPARIN SOON, JUST NOTICED IV HAS BLOWN/INFILTRATED, PLACED WARM PACK, NO FURTHER GUIDANCE FROM PHARMACY. NO C/O PAIN. VSS. ASSESSMENT IS CHARTED. WILL CONTINUE TO MONITOR.
--- NOTE | 2020-01-02 07:30 | NUR ---
ASSUMED CARE OF PT. PT IS INTUBATED AND VENTED. ON PRESSURE SUPPORT OF 7/5 FIO2 30%. PT IS ON HEPARIN DRIP @ 20 UNITS/KG/HR. PROPOFOL AT 15MCG/KG/MIN. PT OPENS EYES SPONTANEOUSLY OR WITH VERBAL STIMULI. PT IS FOLLOWING COMMANDS. AFEBRILE.
--- NOTE | 2020-01-02 10:30 | NUR ---
DR. CHU AT BEDSIDE. UPDATED HIM OF PT'S STATUS. PT SEEMED TO UNDERSTAND WHAT DR. CHU'S IS SAYING SINCE PT WAS ANSWERING YES/NO QUESTIONS APPROPRIATELY BY NODDING/SHAKING HER HEAD.
--- NOTE | 2020-01-02 12:52 | NUR ---
SEEN BY DR. REBOLLEDO AT THIS TIME. UPDATED HIM OF PT'S STATUS.
[2020-01-02 15:00] LABS: Phosphorus, Blood 2.7 mg/dL (2.5-4.9); Potassium, Blood 3.6 mmol/L (3.5-5.5)
--- NOTE | 2020-01-02 16:30 | NUR ---
Clinical Visit: Pt is intubated. According to nurse, pt has been appropriately answering yes/no questions by nodding and shaking her head. Pt will require a PEG. Will follow up with pt as she is recovering and remain available for conversations as needed.
--- NOTE | 2020-01-02 17:59 | NUR ---
SHIFT SUMMARY PT IS STILL INBUTATED AND VENTED. STILL FOLLOWING COMMANDS. PT IS ON 20MCG/KG/MIN OF PROPOFOL. AFEBRILE. MOUTHS WORDS AT TIMES, ANSWERING QUESTIONS APPROPRIATELY. ELECTROLYTES WERE REPLACED TODAY. AFEBRILE. STILL ON HEPARIN DRIP @ 20 UNITS/KG/HR. PICC LINE WAS PLACED TODAY. HAD THREE EXTRA LARGE BOWEL MOVEMENTS TODAY. STILL WITH THIN-THICK WHITISH ET SECRETIONS.
[2020-01-02 23:39] LABS: Vancomycin, Trough 10.3 ug/mL (5.0-10.0)
[2020-01-03 04:20] LABS: BASOPHILS ABSOLUTE AUTO 0.05 K/mm3 (0.00-0.23); BASOPHILS PERCENT AUTO 1 % (0-2); EOSINOPHILS ABSOLUTE AUTO 0.22 K/mm3 (0.00-0.68); EOSINOPHILS PERCENT AUTO 3 % (0-6); Hematocrit 27.9 % (33.0-51.0); Hemoglobin 8.7 g/dL (11.5-16.0); IMMATURE GRAN ABSOLUTE AUTO 0.03 K/mm3 (0.00-0.10); IMMATURE GRAN PERCENT AUTO 1 % (0-1); LYMPHOCYTES ABSOLUTE AUTO 0.68 K/mm3 (0.84-5.20); LYMPHOCYTES PERCENT AUTO 10 % (21-46); MONOCYTES ABSOLUTE AUTO 0.41 K/mm3 (0.16-1.47); MONOCYTES PERCENT AUTO 6 % (4-13); Mean Corpuscular HGB Conc 31.2 g/dL (31.5-36.5); Mean Corpuscular Volume 90 fL (80-100); Mean Platelet Volume 10.6 fL (9.1-12.4); NEUTROPHILS ABSOLUTE AUTO 5.22 K/mm3 (1.96-9.15); NEUTROPHILS PERCENT AUTO 79 % (41-73); Platelet Count 173 K/mm3 (150-400); RDW Coefficient Variation 17.2 % (11.7-14.2); RDW Standard Deviation 49.9 fL (35.1-46.3); Red Blood Cell Count 3.11 M/mm3 (3.80-5.20); White Blood Cell Count 6.61 K/mm3 (4.00-11.30)
[2020-01-03 04:40] LABS: Anion Gap 4 mmol/L (6-16); Blood Urea Nitrogen 15 mg/dL (8-24); Bun/Creatinine Ratio 35.5 (12.0-20.0); CO2, Blood 30 mmol/L (21-32); Calcium, Blood 7.3 mg/dL (8.5-10.1); Chloride, Blood 110 mmol/L (98-108); Creatinine, Blood 0.42 mg/dL (0.40-1.00); Glomerular Filtration Rate >60 (60-); Glucose, Blood 133 mg/dL (70-99); Magnesium, Blood 1.8 mg/dL (1.6-2.4); Phosphorus, Blood 3.9 mg/dL (2.5-4.9); Sodium, Blood 144 mmol/L (136-145)
--- NOTE | 2020-01-03 04:59 | NUR ---
SHIFT SUMMARY PATIENT HAS SLEPT WELL THRU NIGHT. INCREASED PROPOFOL DRIP AROUND 23:00 LAST NIGHT FOR INCREASED AGITATION, HAD JUMPED INTO ACCELERATED JUNCTIONAL RHYTHM, PER DR. CARVALHO GAVE 5MG LOPRESSOR IV, MINIMAL EFFECT. WITH INCREASED SEDATION, WAS NOT PULLING GOOD TIDAL VOLUMES NOR MINUTE VENTILATIONS, SWITCHED PT. OVER TO AC MODE PER RESPIRATORY THERAPY. DID WELL FOR A WHILE, THEN AROUND 02:00 STARTED DECREASING BLOOD PRESSURE, MENTATION. SLOWLY WEANED DOWN PROPOFOL TO EVENTUALLY BE ON STANDBY ~ 03:10, PT. WOKE UP, MENTATION INTACT, SWITCHED BACK TO PRESSURE SUPPORT, GAVE PRN ATIVAN FOR AGITATION. X2 LARGE LOOSE BOWEL MOVEMENTS, HELD SCHEDULED STOOL SOFTENERS LAST NIGHT. PT. REQUESTING ETT BE REMOVED, WILL DISCUSS WITH DAY SHIFT. ASSESSMENT IS CHARTED. VITAL SIGNS STABLE. NO C/O PAIN. WILL CONTINUE TO MONITOR.
--- NOTE | 2020-01-03 10:01 | NUR ---
DR REBOLLEDO ROUNDS DR REBOLLEDO ROUNDED, UPDATED ON PT STATUS. PER DR REBOLLEDO, HE PLANS TO CALL [facility] TO SEE ABOUT TRANSFER FOR PEG TUBE PLACEMENT THIS IS PT'S PREFERENCE. IF PT TRANSFERS, PLAN TO REMAIN INTUBATED. AWAITING UPDATE FROM DR REBOLLEDO, AT THIS TIME NO FURTHER CHANGES TO PLAN OF CARE.
--- NOTE | 2020-01-03 12:07 | NUR ---
TRANSFER TO [facility] PER DR REBOLLEDO PT HAS BEEN ACCEPTED BY [facility]. PLAN FOR TRANSFER TODAY.
--- NOTE | 2020-01-03 12:48 | NUR ---
REPORT CALLED REPORT CALLED TO [place], VE TEACHER AT [facility]. AWAITING FLIGHT CHECK. PT TO TRANSFER VIA REACH.
--- NOTE | 2020-01-03 13:20 | NUR ---
REPORT TO REACH REPORT TO REACH COAL LOADER PT IS TRANSFERRING TO [facility].
--- NOTE | 2020-01-03 13:58 | NUR ---
DISCHARGE NOTE PT LEFT UNIT FOR RIVERND WITH REACH. BELONGINGS WITH PT AT TIME OF DISCHARGE.
== END 2020-01-03 14:00 | disposition short-term general hospital (02) | DRG 208 ==
LOC: ER 22:42 → ICUW 12-31 00:09
PROVIDERS: Emergency Medicine; Family Medicine; Internal Medicine Critical Care Medicine; Nurse Practitioner Acute Care; Pharmacist; ADMIT Internal Medicine
PROC: 0BH17EZ Insertion of Endotracheal Airway into Trachea, Via Natural or Artificial Opening (ICD-10-PCS; 2019-12-31)
PROC: 5A1945Z Respiratory Ventilation, 24-96 Consecutive Hours (ICD-10-PCS; 2019-12-31)
PROC: 02HV33Z Insertion of Infusion Device into Superior Vena Cava, Percutaneous Approach (ICD-10-PCS; principal; 2020-01-02)
DX: J15.212 Pneumonia due to Methicillin resistant Staphylococcus aureus (principal); J96.21 Acute and chronic respiratory failure with hypoxia; I26.99 Other pulmonary embolism without acute cor pulmonale; I50.33 Acute on chronic diastolic (congestive) heart failure; K59.2 Neurogenic bowel, not elsewhere classified; Q21.1 Atrial septal defect; E44.0 Moderate protein-calorie malnutrition; J44.0 Chronic obstructive pulmonary disease with (acute) lower respiratory infection; Z87.891 Personal history of nicotine dependence; Q05.9 Spina bifida, unspecified; R13.12 Dysphagia, oropharyngeal phase; R33.9 Retention of urine, unspecified; Z79.891 Long term (current) use of opiate analgesic; Z99.81 Dependence on supplemental oxygen; Z92.3 Personal history of irradiation; K59.09 Other constipation; G47.33 Obstructive sleep apnea (adult) (pediatric); G89.4 Chronic pain syndrome; N31.9 Neuromuscular dysfunction of bladder, unspecified; R79.89 Other specified abnormal findings of blood chemistry; I27.20 Pulmonary hypertension, unspecified; Z68.22 Body mass index [BMI] 22.0-22.9, adult; B96.20 Unspecified Escherichia coli [E. coli] as the cause of diseases classified elsewhere
CPT/HCPCS: 31500; 31720; 36415; 36569; 36600; 36680; 51702; 71045; 71260; 74177; 80048; 80053; 80202; 82140; 82803; 82947; 83735; 83880; 84100; 84132; 84484; 85025; 85610; 85730; 87070; 87077; 87147; 87186; 87205; 93005; 93010; 93306; 94002; 94003; 94640; 99285-25; C1751; C9113; J0330; J1200; J1644; J1720; J1815; J2060; J2543; J2704; J2765; J3010; J3370; J3475; J3480; J7030; J7060; Q9967

== ENCOUNTER 2020-03-15 12:43 | Emergency (ER) | payer MEDICARE, OTHER ==
[~2020-03-15] VITALS: Ht 142.2 cm; Wt 34.5 kg
[2020-03-15 15:25] LABS: BASOPHILS ABSOLUTE AUTO 0.11 K/mm3 (0.00-0.23); BASOPHILS PERCENT AUTO 1 % (0-2); EOSINOPHILS PERCENT AUTO 3 % (0-6); Hemoglobin 15.2 g/dL (11.5-16.0); IMMATURE GRAN ABSOLUTE AUTO 0.03 K/mm3 (0.00-0.10); IMMATURE GRAN PERCENT AUTO 0 % (0-1); LYMPHOCYTES ABSOLUTE AUTO 1.46 K/mm3 (0.84-5.20); LYMPHOCYTES PERCENT AUTO 14 % (21-46); MONOCYTES ABSOLUTE AUTO 0.56 K/mm3 (0.16-1.47); MONOCYTES PERCENT AUTO 5 % (4-13); Mean Corpuscular HGB 29.5 pg (26.0-34.0); Mean Corpuscular HGB Conc 31.7 g/dL (31.5-36.5); Mean Corpuscular Volume 93 fL (80-100); NEUTROPHILS ABSOLUTE AUTO 8.38 K/mm3 (1.96-9.15); NEUTROPHILS PERCENT AUTO 77 % (41-73); Platelet Count 289 K/mm3 (150-400); RDW Coefficient Variation 13.2 % (11.7-14.2); RDW Standard Deviation 45.8 fL (35.1-46.3); Red Blood Cell Count 5.15 M/mm3 (3.80-5.20); White Blood Cell Count 10.84 K/mm3 (4.00-11.30)
[2020-03-15 15:51] LABS: Alanine Aminotransfer (ALT/SGP 18 U/L (12-78); Albumin, Blood 3.8 g/dL (3.4-5.0); Albumin/Globulin Ratio 0.8 (0.8-1.8); Alk Phos 106 U/L (50-136); Anion Gap 2 mmol/L (6-16); Aspartate Aminotrans (AST/SGOT 13 U/L (12-37); Bilirubin, Total 0.3 mg/dL (0.1-1.0); Blood Urea Nitrogen 14 mg/dL (8-24); Bun/Creatinine Ratio 30.6 (12.0-20.0); CO2, Blood 34 mmol/L (21-32); Chloride, Blood 100 mmol/L (98-108); Creatinine, Blood 0.46 mg/dL (0.40-1.00); Globulin, Blood 4.6 g/dL (2.2-4.0); Glomerular Filtration Rate >60 (60-); Glucose, Blood 80 mg/dL (70-99); Potassium, Blood 4.2 mmol/L (3.5-5.5); Sodium, Blood 136 mmol/L (136-145); Total Protein, Blood 8.4 g/dL (6.4-8.2)
[2020-03-15 15:53] LABS: International Normalized Ratio 1.07; Prothrombin Time Results 11.4 Sec (9.7-11.5)
== END 2020-03-15 18:13 | disposition home or self-care (01) ==
LOC: ER 12:43
PROVIDERS: Emergency Medicine
DX: K94.23 Gastrostomy malfunction (principal); J44.9 Chronic obstructive pulmonary disease, unspecified; Z88.2 Allergy status to sulfonamides; Z88.8 Allergy status to other drugs, medicaments and biological substances; Z91.040 Latex allergy status; Z91.041 Radiographic dye allergy status; Z79.899 Other long term (current) drug therapy; Z87.891 Personal history of nicotine dependence
CPT/HCPCS: 36415; 43762; 74018; 80053; 85025; 85610; 85730; 86850; 86900; 86901; 96374-59; 99283-25; J3010

== ENCOUNTER 2020-03-18 09:25 | Day surgery (SDC) | payer MEDICARE, OTHER ==
[~2020-03-18] VITALS: Ht 142.2 cm; Wt 34.5 kg
--- NOTE | 2020-03-18 11:42 | NUR ---
PT ITNO SDS VIA W/C VERY TALKATIVE. ABLE TO TRANSFER SEFL TO BED. History, Chart, Medications and Allergies reviewed before start of procedure.Patient confirms NPO status and agrees with scheduled surgery. Surgical site prepped with 2% Chlorhexidine cloth wipe.
--- NOTE | 2020-03-18 13:16 | NUR ---
VERIFIED WITH DR. PADILLA: HILARY MONTIEL MD TO HAVE ANCEF PREOP ANTIBIOTIC
--- NOTE | 2020-03-18 13:28 | NUR ---
03/18/20 1328 Deangelo García See Anesthesia record. MONITOR INTACT WITH CONTINUOUS PULSE OXIMETRY AND INTERMITTENT BP. O2 VIA N/C INTACT THROUGHOUT SEDATION/PROCEDURE.
--- NOTE | 2020-03-18 17:13 | NUR ---
patient more awake after stimulation by rn and direct support professional caregiver. patient able to dress herself with little assistance. vss sat in low 90's on 2 liters direct support professional caregiver brought pt personal 02 tank in to take patient home on. discharge instructions gone over with all questions answered patient wheeled out of day surgery by care given with all belongings.
== END 2020-03-18 22:34 | disposition home or self-care (01) ==
LOC: ORSCMMR 09:25
PROVIDERS: Surgery
PROC: 0DH63UZ Insertion of Feeding Device into Stomach, Percutaneous Approach (ICD-10-PCS; principal; 2020-03-18 12:00)
DX: K94.23 Gastrostomy malfunction (principal); R13.12 Dysphagia, oropharyngeal phase; C76.0 Malignant neoplasm of head, face and neck; Q05.7 Lumbar spina bifida without hydrocephalus; F17.210 Nicotine dependence, cigarettes, uncomplicated; K21.9 Gastro-esophageal reflux disease without esophagitis; M79.7 Fibromyalgia; Z79.899 Other long term (current) drug therapy; J44.9 Chronic obstructive pulmonary disease, unspecified
CPT/HCPCS: C1769; J0690; J1100; J2405; J2704; J2710; J3010; J7120; U0002

== ENCOUNTER 2020-04-01 19:03 | Inpatient (IN) | payer MEDICARE, OTHER ==
[~2020-04-01] VITALS: Ht 152.4 cm; Wt 38.7 kg
[~2020-04-01 19:03] MED LIST changes: +Macrobid 100 M100 MG PO; +Pyridium100 MG PO
[2020-04-01 20:29] LABS: BASOPHILS ABSOLUTE AUTO 0.04 K/mm3 (0.00-0.23); BASOPHILS PERCENT AUTO 0 % (0-2); EOSINOPHILS ABSOLUTE AUTO 0.08 K/mm3 (0.00-0.68); EOSINOPHILS PERCENT AUTO 1 % (0-6); Hematocrit 45.1 % (33.0-51.0); Hemoglobin 14.5 g/dL (11.5-16.0); IMMATURE GRAN ABSOLUTE AUTO 0.04 K/mm3 (0.00-0.10); IMMATURE GRAN PERCENT AUTO 0 % (0-1); LYMPHOCYTES ABSOLUTE AUTO 0.94 K/mm3 (0.84-5.20); LYMPHOCYTES PERCENT AUTO 8 % (21-46); MONOCYTES ABSOLUTE AUTO 0.74 K/mm3 (0.16-1.47); MONOCYTES PERCENT AUTO 7 % (4-13); Mean Corpuscular HGB 29.7 pg (26.0-34.0); Mean Corpuscular HGB Conc 32.2 g/dL (31.5-36.5); Mean Corpuscular Volume 92 fL (80-100); Mean Platelet Volume 12.4 fL (9.1-12.4); NEUTROPHILS ABSOLUTE AUTO 9.63 K/mm3 (1.96-9.15); NEUTROPHILS PERCENT AUTO 84 % (41-73); Platelet Count 261 K/mm3 (150-400); RDW Coefficient Variation 13.2 % (11.7-14.2); Red Blood Cell Count 4.89 M/mm3 (3.80-5.20); White Blood Cell Count 11.47 K/mm3 (4.00-11.30)
[2020-04-01 20:49] LABS: Alanine Aminotransfer (ALT/SGP 17 U/L (12-78); Albumin, Blood 3.2 g/dL (3.4-5.0); Albumin/Globulin Ratio 0.7 (0.8-1.8); Alk Phos 105 U/L (50-136); Anion Gap 3 mmol/L (6-16); Aspartate Aminotrans (AST/SGOT 22 U/L (12-37); Bilirubin, Total 0.4 mg/dL (0.1-1.0); Blood Urea Nitrogen 16 mg/dL (8-24); Bun/Creatinine Ratio 49.4 (12.0-20.0); CO2, Blood 33 mmol/L (21-32); Calcium, Blood 9.2 mg/dL (8.5-10.1); Chloride, Blood 102 mmol/L (98-108); Creatinine, Blood 0.32 mg/dL (0.40-1.00); Globulin, Blood 4.3 g/dL (2.2-4.0); Glomerular Filtration Rate >60 (60-); Glucose, Blood 81 mg/dL (70-99); Sodium, Blood 138 mmol/L (136-145); Total Protein, Blood 7.5 g/dL (6.4-8.2); Troponin I <0.015 ng/mL (0.000-0.040)
[2020-04-02 04:49] LABS: U Amphetamine Screen Not Detected; U Barbituate Screen Not Detected; U Benzodiazapine Screen Not Detected; U Buprenorphine Screen Not Detected; U Cannabinoids Screen DETECTED; U Cocaine Screen Not Detected; U Methadone Screen Not Detected; U Methamphetamine Screen Not Detected; U Opiates Screen Not Detected; U Oxycodone Screen DETECTED; U Phencyclidine Screen Not Detected; U Propoxyphene Screen Not Detected
[2020-04-02 06:05] LABS: Source, Urine Catheter
[2020-04-02 06:08] LABS: Bilirubin, Urine Neg (Neg); Blood, Urine 1+ (Neg); Glucose Qualitative, Urine Neg (Neg); Ketones, Urine 1+ (Neg); Leukocyte Esterase, Urine 2+ (Neg); Nitrite, Urine Pos (Neg); Protein, Urine 3+ (Neg); Urobilinogen, Urine 2+ (Normal)
--- NOTE | 2020-04-02 06:32 | NUR ---
PT TO ICU 3 @ APPROX [address] [facility] WITH ED RN AND RT, PT INTUBATED AND SEDATED WITH PROPOFOL (SEE FLOWSHEET FOR TITRATIONS), VENT SET TO AC 16/350/5/35%, PT BECAME VERY AGITATED WITH TRANSFER FROM [facility] TO HOSPITAL BED, REACHING FOR ETT, SITTING UP IN BED, BILAT SOFT WRIST RESTRAINTS APPLIED AND PROPOFOL INCREASED. PT WITH OG PLACED TO LIS, GREEN BILE DRAINAGE, PEG IN PLACE, CLAMPED. PT PROFOUNDLY CACHECTIC. TERESA IN PLACE AND DRAINING YELLOW URINE, SPECIMEN SENT TO LAB. HEPARIN GTT INF TO PERIPHERAL IV. WHEELCHAIR AND PERSONAL BELONGINGS AT BEDSIDE.
[2020-04-02 06:36] LABS: Appearance, Urine Hazy (Clear); Color, Urine Yellow (P-Yellow)
[2020-04-02 06:38] LABS: Bacteria Many /hpf; Squamous Epithelial Cells Many /hpf (Few)
--- NOTE | 2020-04-02 07:29 | NUR ---
ASSUMED CARE: RECEIVED REPORT FROM NOC RN. REPORT FROM RT OF PT NOTED TO BE DIAPHORETIC. WILL MEDICATE PER ORDERS. PT HR NOTED IN THE 130'S. NO RESP DISTRESTRESS NOTED AT THIS TIME WHILE ON THE VENT. WILL CONTINUE TO MONITOR AND ASSESS FURTHER.
--- NOTE | 2020-04-02 08:00 | NUR ---
DR SPAIN: ROUNDED ON PT TO ASSESS AND DISCUSS PLAN OF CARE. UPDATED DR ON ELIVATED HR AND DECREASED BP. DIAPHORETIC AND HX OF PAIN MEDICATED WITH BACLOFEN, LYRICA, AND OPITS. DISCUSSED PEG TUBE AND PT NEEDING TUBE FEEDINGS. WILL CONTINUE TO MONIOTOR AND LOOK FOR NEW ORDERS PLACED.
--- NOTE | 2020-04-02 08:27 | NUR ---
IVF: NS @ 75 ML/HR HEPARIN @ 15U/KG/HR @ DOSING WT OF 35KG PROPOFOL @ 50 MCG/KG/MIN @ DOSING WT OF 38.7 KG
[2020-04-02 09:57] LABS: BASOPHILS ABSOLUTE AUTO 0.02 K/mm3 (0.00-0.23); BASOPHILS PERCENT AUTO 0 % (0-2); EOSINOPHILS ABSOLUTE AUTO 0.01 K/mm3 (0.00-0.68); EOSINOPHILS PERCENT AUTO 0 % (0-6); Hematocrit 45.3 % (33.0-51.0); Hemoglobin 14.2 g/dL (11.5-16.0); IMMATURE GRAN ABSOLUTE AUTO 0.01 K/mm3 (0.00-0.10); IMMATURE GRAN PERCENT AUTO 0 % (0-1); LYMPHOCYTES PERCENT AUTO 9 % (21-46); MONOCYTES ABSOLUTE AUTO 0.12 K/mm3 (0.16-1.47); MONOCYTES PERCENT AUTO 2 % (4-13); Mean Corpuscular HGB 29.6 pg (26.0-34.0); Mean Corpuscular HGB Conc 31.3 g/dL (31.5-36.5); Mean Corpuscular Volume 94 fL (80-100); Mean Platelet Volume 11.6 fL (9.1-12.4); NEUTROPHILS ABSOLUTE AUTO 6.17 K/mm3 (1.96-9.15); NEUTROPHILS PERCENT AUTO 89 % (41-73); Platelet Count 256 K/mm3 (150-400); RDW Coefficient Variation 13.3 % (11.7-14.2); RDW Standard Deviation 46.7 fL (35.1-46.3); White Blood Cell Count 6.93 K/mm3 (4.00-11.30)
[2020-04-02 10:13] LABS: Alanine Aminotransfer (ALT/SGP 30 U/L (12-78); Albumin, Blood 2.8 g/dL (3.4-5.0); Albumin/Globulin Ratio 0.7 (0.8-1.8); Alk Phos 176 U/L (50-136); Anion Gap 3 mmol/L (6-16); Aspartate Aminotrans (AST/SGOT 32 U/L (12-37); Bilirubin, Total 0.3 mg/dL (0.1-1.0); Blood Urea Nitrogen 17 mg/dL (8-24); Bun/Creatinine Ratio 53.1 (12.0-20.0); CO2, Blood 30 mmol/L (21-32); Calcium, Blood 8.5 mg/dL (8.5-10.1); Chloride, Blood 108 mmol/L (98-108); Creatinine, Blood 0.32 mg/dL (0.40-1.00); Globulin, Blood 3.9 g/dL (2.2-4.0); Glomerular Filtration Rate >60 (60-); Glucose, Blood 163 mg/dL (70-99); Potassium, Blood 4.2 mmol/L (3.5-5.5); Sodium, Blood 141 mmol/L (136-145); Total Protein, Blood 6.7 g/dL (6.4-8.2)
--- NOTE | 2020-04-02 20:25 | NUR ---
SPOKE WITH FELIX MORA REGARDING HEPARIN GTT, TURNED GTT OFF, NEW ORDER FOR DAILY LOVENOX TO BE STARTED TOMORROW.
--- NOTE | 2020-04-02 21:23 | NUR ---
ASSUMED CARE AT 1900 PT LAYING IN BED AND INTUBATED. VENT SETTINGS AT AC 16, TV 350, FIO2 35%, PEEP 5. PROPOFOL AND HEPARIN INFUSING. SEE FLOW SHEET FOR RATES AND TITRATION. VANCO INFUSING AND THEN TO NS. OG CLAMPED. TERESA IN PLACE AND DRAINING TO GRAVITY. PT ABLE TO ANSWER YES/NO QUESTIONS WITH HEAD NOD. ALSO ABLE TO WRITE SHORT MESSAGES WITH PEN AND PAPER WHEN PROVIDED. SEE SHIFT ASSESSMENT FOR FULL ASSESSMENT.
[2020-04-03 03:50] LABS: BASOPHILS ABSOLUTE AUTO 0.01 K/mm3 (0.00-0.23); BASOPHILS PERCENT AUTO 0 % (0-2); EOSINOPHILS PERCENT AUTO 0 % (0-6); Hematocrit 41.8 % (33.0-51.0); Hemoglobin 13.1 g/dL (11.5-16.0); IMMATURE GRAN ABSOLUTE AUTO 0.03 K/mm3 (0.00-0.10); IMMATURE GRAN PERCENT AUTO 0 % (0-1); LYMPHOCYTES ABSOLUTE AUTO 0.53 K/mm3 (0.84-5.20); LYMPHOCYTES PERCENT AUTO 7 % (21-46); MONOCYTES ABSOLUTE AUTO 0.26 K/mm3 (0.16-1.47); MONOCYTES PERCENT AUTO 4 % (4-13); Mean Corpuscular HGB 29.2 pg (26.0-34.0); Mean Corpuscular HGB Conc 31.3 g/dL (31.5-36.5); Mean Corpuscular Volume 93 fL (80-100); Mean Platelet Volume 11.2 fL (9.1-12.4); NEUTROPHILS ABSOLUTE AUTO 6.47 K/mm3 (1.96-9.15); NEUTROPHILS PERCENT AUTO 89 % (41-73); Platelet Count 231 K/mm3 (150-400); RDW Coefficient Variation 13.6 % (11.7-14.2); RDW Standard Deviation 46.5 fL (35.1-46.3); Red Blood Cell Count 4.48 M/mm3 (3.80-5.20)
[2020-04-03 04:10] LABS: Alanine Aminotransfer (ALT/SGP 28 U/L (12-78); Albumin, Blood 2.8 g/dL (3.4-5.0); Albumin/Globulin Ratio 0.8 (0.8-1.8); Alk Phos 136 U/L (50-136); Anion Gap 4 mmol/L (6-16); Aspartate Aminotrans (AST/SGOT 18 U/L (12-37); Bilirubin, Total 0.3 mg/dL (0.1-1.0); Blood Urea Nitrogen 25 mg/dL (8-24); Bun/Creatinine Ratio 58.1 (12.0-20.0); CO2, Blood 30 mmol/L (21-32); Calcium, Blood 8.9 mg/dL (8.5-10.1); Chloride, Blood 107 mmol/L (98-108); Creatinine, Blood 0.43 mg/dL (0.40-1.00); Globulin, Blood 3.6 g/dL (2.2-4.0); Glomerular Filtration Rate >60 (60-); Glucose, Blood 148 mg/dL (70-99); Magnesium, Blood 2.1 mg/dL (1.6-2.4); Phosphorus, Blood 3.1 mg/dL (2.5-4.9); Potassium, Blood 3.6 mmol/L (3.5-5.5); Sodium, Blood 141 mmol/L (136-145); Total Protein, Blood 6.4 g/dL (6.4-8.2)
[2020-04-03 05:42] LABS: PCO2 Arterial 41.5 mmHg (35-45); PO2 Arterial 48.8 mmHg (80-100); pH Blood Arterial 7.48 (7.35-7.45)
--- NOTE | 2020-04-03 06:36 | NUR ---
END OF SHIFT SUMMARY PT REMAINS INTUBATED AND MEDICATED WITH PROPOFOL GTT. PT AROUSES TO VERBAL STIMULI. COMMUNICATES VIA PEN AND PAPER AND YES/NO QUESTIONS. PT REPORTS DESIRE TO BE EXTUBATED AND TO START FEEDS VIA PEG TODAY. SBT THIS AM, PT TOLERATED WELL. REMAINS ON SPONTANIOUS PRESSURE SUPPORT OF 7, FIO2 INCREASED TO 35% AFTER ABG RESULTS. MONITOR SHOWS SR, HR 90'S. BP STABLE. VERY LITTLE URINE OUTPUT THIS SHIFT. PT CONTINUES TO [place] AND ASSIST WITH TURNS. PAIN CONTROLLED WITH PRN FENTANYL X3. WILL REPORT TO AM RN WHEN AVAILABLE.
--- NOTE | 2020-04-03 08:00 | NUR ---
INITIAL ASSESSMENT PATIENT INTUBATED AND SEDATED. PATIENT ANXIOUS. PATIENT COOPERATIVE AND ABLE TO FOLLOW COMMANDS. PATIENT ABLE TO COMMUNICATE WITH GESTURING OF HANDS, NODDING AND SHAKING OF HEAD, AND WRITING ON NOTEPAD. PATIENT ABLE TO COMMUNICATE THAT SHE HAS A HEADACHE. TEMPERATURE OF 99.5 DEGREES FAHRENHEIT. PATIENT SATTING 90% AND GREATER ON VENT SETTINGS OF SPONTANEOUS PRESSURE SUPPORT 7/5, 35% FIO2. LUNGS COARSE BEFORE SUCTIONING; DIMINISHED THROUGHOUT AFTER SUCTIONING. MODERATE AMOUNT OF THICK, PALE YELLOW SPUTUM BEING SUCTIONED FROM ETT. PATIENT IN SR TO ST, HR 80S TO LOW 100S. SBP 130S. PEG TUBE AND OG TUBE IN PLACE; BOTH CLAMPED. TEMP PROBE TERESA DRAINING ANNEL COLORED URINE. SCATTERED SCARS NOTED. NS INFUSING AT 75 MLS/ HOUR. PROPOFOL INFUSING. BED LOW, CALL LIGHT IN REACH. WILL CONTINUE TO MONITOR PATIENT FREQUENTLY THROUGHOUT SHIFT.
--- NOTE | 2020-04-03 10:23 | NUR ---
PATIENT EXTUBATED AT 1020. PATIENT SATTING HIGH 90S ON RA.
--- NOTE | 2020-04-03 12:15 | NUR ---
PATIENT RESTING QUIETLY IN BED. PATIENT REMAINS ANXIOUS. PATIENT COOPERATIVE. PATIENT ALERT AND ORIENTED X 4. PATIENT AFEBRILE. PATIENT SATTING HIGH 90S ON 2 L NC. PATIENT SATTING OVER 90% ON RA BUT REQUESTED NC. PATIENT IN SR, HR 80S TO 90S. SBP 140S.
--- NOTE | 2020-04-03 16:38 | NUR ---
SHIFT SUMMARY PATIENT BECAME VERY ANXIOUS WHEN CAME TO VISIT AROUND 2 HOURS AGO. PATIENT REMAINS ALERT AND ORIENTED X 4. PATIENT STATED THAT SHE IS GOING TO GO HOME AMA. NURSE TALKED TO PATIENT IN DEPTH ABOUT THE RISKS OF LEAVING AGAINST MEDICAL ADVICE. DR. SPAIN CALLED AND CAME TO SPEAK WITH PATIENT. DR. SPAIN SPOKE WITH PATIENT FOR AN EXTENDED PERIOD OF TIME. PATIENT STILL WANTING TO GO AMA AFTER SPEAKING WITH DOCTOR ABOUT RISKS AND REASONS WHY THE PATIENT SHOULD STAY IN THE HOSPITAL. PATIENT DRESSED AND TAKEN OUT TO ENTRANCE WHERE SHE STATES HER IS GOING TO PICK HER UP AT. ALL BELONGINGS SENT OUT WITH PATIENT. DISCHARGE AMA RELEASE FROM SIGNED.
--- NOTE | 2020-04-03 19:07 | NUR ---
Prior to pt's d/c, nursing contacted me, stating Dr would like a POLST form completed prior to d/c. I was unable to come to ICU prior to pt's planned departure AMA but POLST form provided to ICU nursing staff for completion and also gave instructions on sending to Medical Records once completed for scanning into EMR for patient.
[2020-04-04] MEDS ORDERED: ESCI20 (12:32)
[2020-04-04] MEDS ORDERED: NORT25 PO (12:32)
[2020-04-04] MEDS ORDERED: HYDPAM25 PO (14:10)
== END 2020-04-03 16:52 | disposition left against medical advice (07) | DRG 208 ==
LOC: ER 19:03 → ERHOLD 04-02 01:57 → ICUE 04-02 01:57
PROVIDERS: Emergency Medicine; Internal Medicine Critical Care Medicine; ADMIT Internal Medicine
PROC: 0BH18EZ Insertion of Endotracheal Airway into Trachea, Via Natural or Artificial Opening Endoscopic (ICD-10-PCS; principal; 2020-04-01)
PROC: 5A1945Z Respiratory Ventilation, 24-96 Consecutive Hours (ICD-10-PCS; 2020-04-01)
DX: I26.99 Other pulmonary embolism without acute cor pulmonale (principal); J18.9 Pneumonia, unspecified organism; J96.21 Acute and chronic respiratory failure with hypoxia; R65.10 Systemic inflammatory response syndrome (SIRS) of non-infectious origin without acute organ dysfunction; Q05.9 Spina bifida, unspecified; F17.210 Nicotine dependence, cigarettes, uncomplicated; R13.12 Dysphagia, oropharyngeal phase; Z93.1 Gastrostomy status; N31.9 Neuromuscular dysfunction of bladder, unspecified; G47.31 Primary central sleep apnea; J43.9 Emphysema, unspecified; R00.0 Tachycardia, unspecified; Z91.041 Radiographic dye allergy status; Z66 Do not resuscitate; Z85.89 Personal history of malignant neoplasm of other organs and systems
CPT/HCPCS: 31500; 31720; 36415; 36600; 51702; 70490; 71045; 71260; 80053; 81001; 82330; 82803; 82947; 83735; 83880; 84100; 84439; 84443; 84484; 85025; 85379; 85730; 87070; 87077; 87086; 87147; 87186; 87205; 93005; 93010; 93308; 93321; 94002; 94003; 94640; 94660; 96361; 96365; 96366; 96375; 96376; 99285-25; C9113; J0153; J1200; J1644; J1650; J1720; J2060; J2185; J2250; J2704; J2930; J3010; J3370; J7030; Q9967

== ENCOUNTER 2020-04-04 12:23 | Emergency (ER) | payer MEDICARE, OTHER ==
[~2020-04-04] VITALS: Ht 142.2 cm; Wt 35.4 kg
[2020-04-04] MEDS ORDERED: ESCI20 (12:32)
[2020-04-04] MEDS ORDERED: NORT25 PO (12:32)
[2020-04-04] MEDS ORDERED: HYDPAM25 PO (14:10)
[2020-04-05] MEDS ORDERED: Neurontin 100100 MG PO (23:08)
== END 2020-04-04 14:18 | disposition home or self-care (01) ==
LOC: ER 12:23
DX: F41.9 Anxiety disorder, unspecified (principal)
CPT/HCPCS: 36415; 93005; 93010; 99284-25; Q3014

== ENCOUNTER 2020-04-05 20:24 | Emergency (ER) | payer MEDICARE, OTHER ==
[~2020-04-05] VITALS: Ht 142.2 cm; Wt 34.9 kg
[~2020-04-05 20:24] MED LIST changes: +ESCI20; +HYDPAM25 PO
[2020-04-05] MEDS ORDERED: Neurontin 100100 MG PO (23:08)
== END 2020-04-05 23:25 | disposition home or self-care (01) ==
LOC: ER 20:24
DX: F41.9 Anxiety disorder, unspecified (principal); J44.9 Chronic obstructive pulmonary disease, unspecified; F17.200 Nicotine dependence, unspecified, uncomplicated; Z88.2 Allergy status to sulfonamides; Z88.8 Allergy status to other drugs, medicaments and biological substances; Z88.0 Allergy status to penicillin; Z88.1 Allergy status to other antibiotic agents; Z79.899 Other long term (current) drug therapy
CPT/HCPCS: 99284; Q3014

== ENCOUNTER 2020-04-23 15:13 | Inpatient (IN) | payer MEDICARE, OTHER ==
[~2020-04-23] VITALS: Ht 157.5 cm; Wt 38.5 kg
[~2020-04-23 15:13] MED LIST changes: -ESCI20; +Neurontin 100100 MG PO
[2020-04-23] MEDS ORDERED: QUETIAPINE FUMA50 M2 PO (15:20)
[2020-04-23] MEDS ORDERED: Oxycontin60 MG PO (15:23)
[2020-04-23] MEDS ORDERED: TIOT18 INH (15:24)
[2020-04-23 16:02] LABS: Hematocrit 42.7 % (33.0-51.0); Hemoglobin 13.6 g/dL (11.5-16.0); Mean Corpuscular HGB 29.4 pg (26.0-34.0); Mean Corpuscular HGB Conc 31.9 g/dL (31.5-36.5); Mean Corpuscular Volume 92 fL (80-100); RDW Coefficient Variation 13.9 % (11.7-14.2); Red Blood Cell Count 4.63 M/mm3 (3.80-5.20); White Blood Cell Count 13.03 K/mm3 (4.00-11.30)
[2020-04-23 16:09] LABS: Mean Platelet Volume 12.1 fL (9.1-12.4); Platelet Count 261 K/mm3 (150-400)
[2020-04-23 16:18] LABS: Troponin I 0.442 ng/mL (0.000-0.040)
[2020-04-23 16:29] LABS: BAND PERCENT MAN 13 % (0-8); BASOPHILS ABSOLUTE MAN 0.13 K/mm3 (0.00-0.23); BASOPHILS PERCENT MAN 1 % (0-2); EOSINOPHILS PERCENT MAN 0 % (0-6); LYMPHOCYTES ABSOLUTE MAN 0.13 K/mm3 (0.84-5.20); LYMPHOCYTES PERCENT MAN 1 % (21-46); MONOCYTES ABSOLUTE MAN 0.91 K/mm3 (0.16-1.47); MONOCYTES PERCENT MAN 7 % (4-13); NEUTROPHILS ABSOLUTE MAN 11.85 K/mm3 (1.96-9.15); SEG NEUTROPHILS PERCENT MAN 78 % (41-73); TOTAL CELLS COUNTED 100
[2020-04-23 16:46] LABS: Albumin, Blood 2.8 g/dL (3.4-5.0); Albumin/Globulin Ratio 0.7 (0.8-1.8); Bilirubin, Total 1.7 mg/dL (0.1-1.0); Bun/Creatinine Ratio 41.3 (12.0-20.0); Creatinine, Blood 1.38 mg/dL (0.40-1.00); Globulin, Blood 4.3 g/dL (2.2-4.0); Potassium, Blood 5.4 mmol/L (3.5-5.5); Total Protein, Blood 7.1 g/dL (6.4-8.2)
[2020-04-23] MEDS ORDERED: NORTRIPTYLINE H10 M2 PO (19:37)
[2020-04-23] MEDS ORDERED: NARCAN4 M1 (19:37)
[2020-04-24 03:34] LABS: Hematocrit 40.2 % (33.0-51.0); Hemoglobin 12.6 g/dL (11.5-16.0); LYMPHOCYTES ABSOLUTE AUTO 0.26 K/mm3 (0.84-5.20); LYMPHOCYTES PERCENT AUTO 1 % (21-46); MONOCYTES ABSOLUTE AUTO 0.94 K/mm3 (0.16-1.47); MONOCYTES PERCENT AUTO 4 % (4-13); Mean Corpuscular HGB 29.3 pg (26.0-34.0); Mean Corpuscular HGB Conc 31.3 g/dL (31.5-36.5); Mean Corpuscular Volume 94 fL (80-100); Mean Platelet Volume 10.9 fL (9.1-12.4); NRBC ABSOLUTE 0.02 K/mm3 (0.00-0.02); NRBC Auto 0.1 /100 WBC (0.0-0.2); Platelet Count 242 K/mm3 (150-400); RDW Coefficient Variation 14.2 % (11.7-14.2); RDW Standard Deviation 48.1 fL (35.1-46.3); White Blood Cell Count 22.67 K/mm3 (4.00-11.30)
[2020-04-24 03:35] LABS: BASOPHILS ABSOLUTE AUTO 0.01 K/mm3 (0.00-0.23); BASOPHILS PERCENT AUTO 0 % (0-2); EOSINOPHILS PERCENT AUTO 0 % (0-6); IMMATURE GRAN ABSOLUTE AUTO 0.68 K/mm3 (0.00-0.10); IMMATURE GRAN PERCENT AUTO 3 % (0-1); NEUTROPHILS ABSOLUTE AUTO 20.78 K/mm3 (1.96-9.15); NEUTROPHILS PERCENT AUTO 92 % (41-73)
[2020-04-24 03:48] LABS: Bun/Creatinine Ratio 48.3 (12.0-20.0); Calcium, Blood 8.2 mg/dL (8.5-10.1); Creatinine, Blood 1.45 mg/dL (0.40-1.00); Potassium, Blood 4.7 mmol/L (3.5-5.5)
[2020-04-24 03:57] LABS: BAND PERCENT MAN 38 % (0-8); BASOPHILS PERCENT MAN 0 % (0-2); EOSINOPHILS PERCENT MAN 0 % (0-6); LYMPHOCYTES ABSOLUTE MAN 0.45 K/mm3 (0.84-5.20); LYMPHOCYTES PERCENT MAN 2 % (21-46); METAMYELOCYTE ABSOLUTE MAN 2.26 K/mm3 (0.00-0.00); METAMYELOCYTE PERCENT MAN 10 % (0-0); MONOCYTES ABSOLUTE MAN 1.36 K/mm3 (0.16-1.47); MONOCYTES PERCENT MAN 6 % (4-13); NEUTROPHILS ABSOLUTE MAN 18.58 K/mm3 (1.96-9.15); SEG NEUTROPHILS PERCENT MAN 44 % (41-73); TOTAL CELLS COUNTED 100
[2020-04-24 05:31] LABS: PO2 Arterial 85.8 mmHg (80-100)
[2020-04-24 05:32] LABS: PCO2 Arterial 71.9 mmHg (35-45); pH Blood Arterial 7.22 (7.35-7.45)
[2020-04-24 06:03] LABS: Source, Urine Catheter
[2020-04-24 06:09] LABS: Appearance, Urine Cloudy (Clear); Bilirubin, Urine Neg (Neg); Blood, Urine 4+ (Neg); Color, Urine Yellow (P-Yellow); Glucose Qualitative, Urine 1+ (Neg); Ketones, Urine Neg (Neg); Leukocyte Esterase, Urine 1+ (Neg); Nitrite, Urine Pos (Neg); Protein, Urine 2+ (Neg); Specific Gravity, Urine 1.015 (1.003-1.022); Urobilinogen, Urine 1+ (Normal)
[2020-04-24 06:20] LABS: Amorphous Mod (0-Heavy); Bacteria Many /hpf; Squamous Epithelial Cells Few /hpf (Few)
[2020-04-24 08:46] LABS: Vancomycin, Random 13.1 ug/mL
[2020-04-24 10:00] LABS: Base Excess Venous 2.3 mmol/L; Bicarbonate Venous 25.2 mmol/L (24.0-30.0); PO2 Venous 68.9 mmHg (38-42); pH Blood Venous 7.28 (7.34-7.37)
[2020-04-24 15:59] LABS: PO2 Arterial 82.5 mmHg (80-100); pH Blood Arterial 7.32 (7.35-7.45)
[2020-04-25 05:04] LABS: BASOPHILS ABSOLUTE AUTO 0.02 K/mm3 (0.00-0.23); BASOPHILS PERCENT AUTO 0 % (0-2); EOSINOPHILS PERCENT AUTO 0 % (0-6); Hematocrit 36.3 % (33.0-51.0); Hemoglobin 11.4 g/dL (11.5-16.0); IMMATURE GRAN ABSOLUTE AUTO 0.23 K/mm3 (0.00-0.10); IMMATURE GRAN PERCENT AUTO 3 % (0-1); LYMPHOCYTES ABSOLUTE AUTO 0.28 K/mm3 (0.84-5.20); LYMPHOCYTES PERCENT AUTO 4 % (21-46); MONOCYTES ABSOLUTE AUTO 0.49 K/mm3 (0.16-1.47); MONOCYTES PERCENT AUTO 7 % (4-13); Mean Corpuscular HGB 29.1 pg (26.0-34.0); Mean Corpuscular HGB Conc 31.4 g/dL (31.5-36.5); Mean Corpuscular Volume 93 fL (80-100); Mean Platelet Volume 11.1 fL (9.1-12.4); NEUTROPHILS ABSOLUTE AUTO 6.52 K/mm3 (1.96-9.15); NEUTROPHILS PERCENT AUTO 86 % (41-73); Platelet Count 195 K/mm3 (150-400); RDW Coefficient Variation 14.4 % (11.7-14.2); RDW Standard Deviation 49.1 fL (35.1-46.3); Red Blood Cell Count 3.92 M/mm3 (3.80-5.20); White Blood Cell Count 7.54 K/mm3 (4.00-11.30)
[2020-04-25 05:32] LABS: Alanine Aminotransfer (ALT/SGP 751 U/L (12-78); Albumin, Blood 2.3 g/dL (3.4-5.0); Albumin/Globulin Ratio 0.6 (0.8-1.8); Alk Phos 105 U/L (50-136); Anion Gap 8 mmol/L (6-16); Aspartate Aminotrans (AST/SGOT 294 U/L (12-37); Bilirubin, Total 0.7 mg/dL (0.1-1.0); Blood Urea Nitrogen 87 mg/dL (8-24); Bun/Creatinine Ratio 62.1 (12.0-20.0); CO2, Blood 31 mmol/L (21-32); Calcium, Blood 8.1 mg/dL (8.5-10.1); Chloride, Blood 107 mmol/L (98-108); Globulin, Blood 3.8 g/dL (2.2-4.0); Glomerular Filtration Rate 42 (60-); Glucose, Blood 200 mg/dL (70-99); Magnesium, Blood 3.1 mg/dL (1.6-2.4); Potassium, Blood 3.7 mmol/L (3.5-5.5); Sodium, Blood 146 mmol/L (136-145); Total Protein, Blood 6.1 g/dL (6.4-8.2); Vancomycin, Random 13.2 ug/mL
[2020-04-25 05:33] LABS: BAND PERCENT MAN 9 % (0-8); BASOPHILS PERCENT MAN 0 % (0-2); EOSINOPHILS PERCENT MAN 0 % (0-6); LYMPHOCYTES ABSOLUTE MAN 0.52 K/mm3 (0.84-5.20); LYMPHOCYTES PERCENT MAN 7 % (21-46); METAMYELOCYTE ABSOLUTE MAN 0.22 K/mm3 (0.00-0.00); METAMYELOCYTE PERCENT MAN 3 % (0-0); MONOCYTES ABSOLUTE MAN 0.22 K/mm3 (0.16-1.47); MONOCYTES PERCENT MAN 3 % (4-13); NEUTROPHILS ABSOLUTE MAN 6.55 K/mm3 (1.96-9.15); SEG NEUTROPHILS PERCENT MAN 78 % (41-73); TOTAL CELLS COUNTED 100
== END 2020-04-27 04:45 | DRG 871 ==
LOC: ER 15:13 → MEDS 19:10 → PCU 19:10 → MEDS 04-26 12:01
PROVIDERS: Emergency Medicine; Family Medicine; ADMIT Hospitalist
PROC: 5A09457 Assistance with Respiratory Ventilation, 24-96 Consecutive Hours, Continuous Positive Airway Pressure (ICD-10-PCS; principal; 2020-04-23)
DX: A41.9 Sepsis, unspecified organism (principal); L89.153 Pressure ulcer of sacral region, stage 3; E43 Unspecified severe protein-calorie malnutrition; G92 Toxic encephalopathy; J18.9 Pneumonia, unspecified organism; J69.0 Pneumonitis due to inhalation of food and vomit; J96.21 Acute and chronic respiratory failure with hypoxia; F11.20 Opioid dependence, uncomplicated; G93.1 Anoxic brain damage, not elsewhere classified; I24.8 Other forms of acute ischemic heart disease; N17.9 Acute kidney failure, unspecified; S36.119A Unspecified injury of liver, initial encounter; Z68.1 Body mass index [BMI] 19.9 or less, adult; J44.0 Chronic obstructive pulmonary disease with (acute) lower respiratory infection; Z51.5 Encounter for palliative care; Z66 Do not resuscitate; Z20.828 Contact with and (suspected) exposure to other viral communicable diseases; R65.20 Severe sepsis without septic shock; F17.210 Nicotine dependence, cigarettes, uncomplicated; F32.9 Major depressive disorder, single episode, unspecified; G47.33 Obstructive sleep apnea (adult) (pediatric); G89.4 Chronic pain syndrome; N31.9 Neuromuscular dysfunction of bladder, unspecified; Q05.9 Spina bifida, unspecified; Z85.819 Personal history of malignant neoplasm of unspecified site of lip, oral cavity, and pharynx; Z99.81 Dependence on supplemental oxygen; Z86.711 Personal history of pulmonary embolism; Z93.1 Gastrostomy status
CPT/HCPCS: 36415; 36600; 51702; 70450; 71045; 80048; 80053; 80202; 81001; 82533; 82803; 83735; 83880; 84443; 84484; 85025; 87077; 87086; 87186; 93005; 93010; 94640; 94644; 94660; 94762; 96365; 96366; 96367; 96375; 99285-25; C1751; C9113; J0456; J0696; J1650; J1940; J2060; J2270; J2310; J3370; J3475; J7030; J7040; J7050; U0003